=== PATIENT | female | born 1960 | race Caucasian/White ===

== ENCOUNTER 2023-01-19 11:06 | Outpatient (OUT) | payer BC, SELFPAY ==
--- NOTE | 2023-01-19 | XR_ITS ---
The [address] [address] Patient Name: MILLICENT FONTENOT MRN: [id number] date: 1960 Sex: F Assigned Patient Location: [facility] Current Patient Location: [facility] Accession/Order Number: [id number] Exam Date: 01/19/2023 11:11 Report Date: 01/19/2023 13:02 At the request of: ANEUDY CHARLTON Procedure: XR foot MARCE min 3V Exam: Radiographs: XR foot MARCE min 3V Reason for exam: Bilateral foot pain Comparison: None XR/XR foot MARCE min 3V IMPRESSION: Mild left foot degenerative changes, most evident at the first MTP joint. Pes planus. Remainder of the left foot is unremarkable. Mild right foot degenerative changes, most evident at the first MTP joint. Pes planus. Right foot is otherwise unremarkable. Electronically authenticated by: CONRADO SMITH Date: 01/19/2023 13:02
== END 2023-01-19 11:07 | disposition home or self-care (01) ==
PROVIDERS: PCP Nurse Practitioner; Visit Provider Physician Assistant
DX: M79.671 Pain in right foot (principal); M79.672 Pain in left foot
CPT/HCPCS: 73630

== ENCOUNTER 2023-04-08 09:25 | Outpatient (OUT) | payer BC, SELFPAY ==
--- OUTSIDE RECORDS SUMMARY | 2023-04-08 09:29 | XMS_ITS | CCD ---
Author Name Unknown Address [address] [place] [address] Organization [facility] Care Team Providers Care Computer Lab Assistant Name Role Phone Rosie Givens Attending Unavailable Rosie Givens Attending Unavailable VIV CONNORS Attending Unavailable NON STAFF Primary Care Provider UnavailMD Rosie Vargas Attending Provider MD Rosie Givens Other Provider Kenzie Lin Unavailable ELIF, AHMAD Admitting Unavailable ELIF, AHMAD Attending Unavailable AICHHOLZ, TREE PULLER DEB Primary Care Unavailable ELIF, AHMAD Consulting Unavailable ELIF, AHMAD Admitting Unavailable ELIF, AHMAD Attending Unavailable AICHHOLZ, TREE PULLER DEB Primary Care Unavailable ELIF, AHMAD Consulting Unavailable AICHHOLZ, TREE PULLER DEB Admitting Unavailable AICHHOLZ, TREE PULLER DEB Attending Unavailable AICHHOLZ, TREE PULLER DEB Primary Care Unavailable AICHHOLZ, TREE PULLER DEB Consulting Unavailable AICHHOLZ, TREE PULLER DEB Admitting Unavailable AICHHOLZ, TREE PULLER DEB Attending Unavailable AICHHOLZ, TREE PULLER DEB Primary Care Unavailable DR RAYSHAWN CASTANON V Consulting Unavailable AICHHOLZ, TREE PULLER DEB Consulting Unavailable Aichgustavo, Deb J Primary Care Provider [phone] JOSEP Crain Attending Provider [phone] DO Jurgen Garcia Attending Provider MD Kiesha Asencio Other Provider Deb Chiu Primary Care Provider [phone] Zoila Crain Admitting Unavailable Zoila Crain Attending Unavailable Deb Chiu Primary Care Unavailable Jurgen Garcia Admitting Unavailable Jurgen Garcia Attending Unavailable Deb Chiu Primary Care Unavailable Kiesha Asencio Consulting Unavailable Allergies Allergy Classification Reported Allergen(s) Allergy Type Date of Onset Reaction(s) Facility (7 sources) pegfilgrastim; Translations: [pegfilgrastim] Drug Allergy 10-14-2020 [facility] (1 source) pegfilgrastim Drug Allergy 04-22-2016 [facility] Repository Medications Current Medications Medication Drug Class(es) Dates Sig (Normalized) Sig (Original) Calcitrate (1 source) Calcitrate Activ e levothyroxine sodium 0.125 mg oral tablet (16 sources) l-Thyroxine Start: 03-07-2019 take 100 ug by mouth once daily in the morning Levothyroxine Active 100 MCG PO Every morning March 07, 2019 1:00am Start: 07-13-2017 End: 03-07-2019 take 125 ug by mouth once daily Levothyroxine Discontinued 125 MCG PO Daily July 13, 2017 12:00am March 07, 2019 9:25am Start: 01-17-2017 End: 07-13-2017 take 112 ug by mouth once daily Levothyroxine Discontinued 112 MCG PO Daily January 17, 2017 12:00am July 13, 2017 9:09am Levothyroxine So dium Active Completed/Discontinued Medications Medication Drug Class(es) Dates Sig (Normalized) Sig (Original) acetaminophen 325 mg / HYDROcodone bitartrate 5 mg oral tablet (10 sources) Opioid Agonist Start: 03-28-2019 End: 09-05-2019 take 1 tablet by mouth every four to six hours Hydrocodone-Acetami nophen ([place]) 5-325 mg tablet Discontinued 1 TAB PO EVERY 4-6 HOURS 40 March 28, 2019 September 05, 2019 8:37am Start: 02-09-2017 End: 07-13-2017 take 2 tablets by mouth every four to six hours Hydrocodone-Acetaminophen ([place]) 5-325 mg tablet Discontinued 2 TAB PO EVERY 4-6 HOURS 40 February 09, 2017 1:00am July 13, 2017 9:09am anastrozole 1 mg oral tablet (20 sources) Aromatase Inhibitor Start: 01-17-2017 End: 10-14-2020 take 1 mg by mouth once daily in the evening Anastrozole Discontinued 1 MG PO Every evening 90 90 June 23, 2020 8:36am October 14, 2020 3:48pm calcium carbonate 1500 mg / cholecalciferol 800 unt chewable tablet (5 sources) Vitamin D Start: 01-17-2017 End: 07-13-2017 Calcium Carbonate-Vitamin D3 (Caltrate 600 + D) 600 mg (1,500 mg)-800 unit Tablet,Chewable Discontinued 1 TAB PO Twice daily January 17, 2017 12:00am July 13, 2017 9:09am Multivitamin preparation (5 sources) Start: 01-17-2017 End: 07-13-2017 take 1 tablet by mouth once daily Multivitamin Discontinued 1 TAB PO Daily January 17, 2017 12:29pm July 13, 2017 9:09am Start: 01-17-2017 End: 07-13-2017 take 1 tablet by mouth once daily Multivitamin Discontinued 1 TAB PO Daily January 17, 2017 12:00am July 13, 2017 9:09am Vitamin B Complex (5 sources) Start: 01-17-2017 End: 01-26-2017 take 1 capsule by mouth once daily Vitamin B Complex Discontinued 1 CAP PO Daily January 17, 2017 12:29pm January 26, 2017 1:43pm Start: 01-17-2017 End: 01-26-2017 take 1 capsule by mouth once daily Vitamin B Complex Discontinued 1 CAP PO Daily January 17, 2017 12:00am January 26, 2017 1:43pm vitamin b12 1 mg oral tablet (5 sources) Vitamin B12 Start: 01-26-2017 End: 07-12-2018 take 1 tablet by mouth once daily Cyanocobalamin (Vitamin B-12) (Vitamin B-12) 1,000 mcg Tablet Discontinued 1000 MCG PO Daily January 26, 2017 12:00am July 12, 2018 9:17am vitamin b6 50 mg oral capsule (5 sources) Start: 01-26-2017 End: 07-12-2018 take 1 capsule by mouth once daily Pyridoxine (Vitamin B6) (Vitamin B-6) 50 mg Capsule Discontinued 1 CAP PO Daily January 26, 2017 12:00am July 12, 2018 9:17am Problems Active Problems Problem Classification Problem Date Documented Da te Episodic/Chronic Cancer of breast (7 sources) Malignant neoplasm of upper-outer quadrant of female breast; Translations: [Malignant neoplasm of upper-outer quadrant of left female breast] 01-15-2019 Chronic Cancer of breast (2 sources) Personal history of primary malignant neoplasm of breast; Translations: [Personal history of malignant neoplasm of breast] Onset: 10-07-2022 Episodic Complications of surgical procedures or medical care (5 sources) Seroma of breast as complication of procedure; Translations: [Infected postoperative breast seroma] 01-15-2019 Episodic Menopausal disorders (5 sources) Menopausal flushing; Translations: [Menopausal and female climacteric states] 01-15-2019 Chronic Mood disorders (5 sources) Depressive disorder; Translations: [Depression] 01-15-2019 Chronic Nonmalignant breast conditions (2 sources) Deformity of reconstructed breast; Translations: [Deformity of reconstructed breast] Episodic Nutritional deficiencies (5 sources) Vitamin D deficiency, unspecified; Translations: [VITAMIN D DEFICIENCY UNSPECIFIED] Onset: 04-28-2021 Chronic Other aftercare (5 sources) Drug therapy finding; Translations: [Encounter for therapeutic drug level monitoring] 09-05-2019 Episodic Other aftercare (1 source) Encounter for therapeutic drug level monitoring; Translations: [Encounter for therapeutic drug monitoring] Episodic Other bone disease and musculoskeletal deformities (5 sources) Osteopenia; Translations: [Other specified disorders of bone density and structure, unspecified site] 01-15-2019 Episodic Other bone disease and musculoskeletal deformities (1 source) Other specified disorders of bone density and structure, unspecified site; Translations: [Disorder of bone and cartilage, unspecified] Episodic Other lower respiratory disease (4 sources) Pleurodynia; Translations: [PLEURODYNIA] Onset: 03-29-2022 Episodic Other nutritional; endocrine; and metabolic disorders (1 source) Hypercalcemia; Translations: [HYPERCALCEMIA] Onset: 04-13-2022 Chronic Other upper respiratory disease (1 source) Nasal congestion; Translations: [Nasal congestion] Episodic Other upper respiratory infections (1 source) Acute upper respiratory infection, unspecified; Translations: [ACUTE UP RESPIRATORY INFECTION UNS] Onset: 04-01-2022 Episodic Residual codes; unclassified (1 source) Acquired absence of both cervix and uterus; Translations: [Acquired absence of both cervix and uterus] Episodic Residual codes; unclassified (1 source) History of left mastectomy; Translations: [Acquired absence of left breast and nipple] Episodic Thyroid disorders (12 sources) Hypothyroidism; Translations: [Hypothyroidism, unspecified] Onset: 04-23-2021 07-12-2018 Chronic Unclassified (1 source) COUGH, UNSPECIFIED; Translations: [COUGH, UNSPECIFIED] Onset: 04-01-2022 Unclassified (3 sources) CONTACT W/AND (SUSP) EXPOS COVID-19; Translations: [CONTACT W/AND (SUSP) EXPOS COVID-19] Onset: 04-28-2021 Unclassified (1 source) Encounter for surgical aftercare following surgery on the skin and subcutaneous tissue; Translations: [Encounter for surgical aftercare following surgery on the skin and subcutaneous tissue] Onset: 07-12-2022 Past or Other Problems Problem Classification Problem Date Documented Da te Episodic/Chronic Other upper respiratory disease (1 source) Nasal congestion Onset: 10-29-2021 Resolved: 10-29-2021 Episodic Unclassified (1 source) CONTACT W/AND (SUSP) EXPOS COVID-19; Translations: [CONTACT W/AND (SUSP) EXPOS COVID-19] Onset: 04-27-2021 Viral infection (1 source) COVID-19 Onset: 10-29-2021 Resolved: 10-29-2021 Results Test Name Value Interpretation Reference Range Facility Free T4 (Free Thyroxine)on 0 10-07-2022 Free T4 [Mass/Vol] 1.13 ng/dL High 0.61-1.12 [facility] Comment on above: Performed By: #### T 4F, TSH3, T3F #### [address] MM diagnostic mammo RT w/CAD on 10-07-2022 MM diagnostic mammo RT w/CAD [facility] [address] [place] [address] [place] [address] Mammography Report Signed Patient: Gabriella Rodriguez MR#: [id number] : 1960 Acct:[id number] Age/Sex: 62 / F ADM Date: 10/07/22 Loc: [place] Room: Type: [facility] Attending Dr: Jurgen Garcia DO Copies to: DO Deb Acevedo METAL PATTERN MAKER-C Ordering Provider: Jurgen Garcia DO Date of Service: 10/07/22 MM/MM diagnostic mammo RT w/CAD: Z85.3 CLINICAL DATA: History of left-sided breast cancer status post mastectomy in 2015. RightDIAGNOSTIC MAMMOGRAM - WITH TOMOSYNTHESIS AND CAD COMPARISON:Mammogra ms dating back to 2019 Tomosynthesis imaging was obtained using low-dose digital technique. This examination was reviewed with the aid of CAD. FINDINGS: The right breast is composed of scattered fibroglandular densities. No new areas of architectural distortion, worrisome masses or suspicious microcalcifications . MM/MM diagnostic mammo RT w/CAD IMPRESSION: NO MAMMOGRAPHIC EVIDENCE OF MALIGNANCY. ROUTINE FOLLOW-UP IS RECOMMENDED IN ONE YEAR. RESULT CODE: 1 Negative DENSITY CODE: 2 (approximately 25-50% glandular) FOLLOW UP: 1YR The false-negative rate of mammography is approximately 10-percent. Management of a palpable abnormality must be based on clinical grounds. Patient was entered into a reminder system with a target due date for the next mammogram. Impression dictated by: Roby Rojas Jr., Mg10/07/2022 9:05 AM Dictation Location: [facility] Transcribed By: [facility] 10/07/22904 Dictated By: Roby Rojas Jr, DO 10/07/22 09 Signed By: 10/07/22904 Normal [facility] Thyroid Stimulating Hormoneo n 10-07-2022 TSH Qn 0.32 m[IU]/L Low 0.45-5.33 [facility] Comment on above: Result Comment: PERF ORMED BY: [place] [address] PATHOLOGIST FORMULA ROOM WORKER MALIA MARTÍNEZ M.D. Performed By: #### T 4F, TSH3, T3F #### [address] Thyrotropin [Units/volume] i n Serum or PlasmaOrdered By: Kiesha Asencio on 10-07-2022 TSH Qn 0.32 m[IU]/L 0.45-5.33 [facility] Thyroxine (T4) free [Mass/vo lume] in Serum or PlasmaOrdered By: Kiesha Asencio on 10-07-2022 Free T4 [Mass/Vol] 1.13 ng/dL 0.61-1.12 [facility] Triiodothyronine (T3) Freeon 10-07-2022 Triiodothyronine (T3) Free 3.42 pg/mL Normal 2.50-3.90 [facility] Comment on above: Result Comment: PERF ORMED BY: [facility] [address] [place] [address] PATHOLOGIST FORMULA ROOM WORKER MAILA MARTÍNEZ M.D. Performed By: #### T 4F, TSH3, T3F #### [facility] [address] Triiodothyronine (T3) Free [ Mass/volume] in Serum or PlasmaOrdered By: Kiesha Asencio on 10-07-2022 Free T3 [Mass/Vol] 3.42 pg/mL 2.50-3.90 [facility] Bacteria identified Aer cx N om (Unsp spec)Ordered By: Zoila Crain on 07-12-2022 Superficial Wound Culture Pseudomonas aeruginosa [facility] Superficial Wound Culture Serratia marcescens [facility] Superficial Wound Cultureon 07-12-2022 Superficial Wound Culture LEFT INFERIOR CENTRAL MALAR CHEEK AND FACE ORGANISM: Pseudomonas aeruginosa (O:PSEAER) Quantity of Growth Heavy Growth ORGANISM: Serratia marcescens (O:SERMAR) Quantity of Growth Light Growth Aerobic EMELI Charge (NMIC56) ------ SUSCEPTIBILITY ----- ORGANISM: O:PSEAER ANTIBIOTIC INTERPRETATION EMELI Amikacin S <16 Aztreonam IB <4 Cefepime S <2 Ceftazidime IB 4 Ceftazidime/Avibact am S <4 Ceftolozane/Tazobac paul S <2 Ciprofloxacin S <0.25 Gentamicin S 4 Levofloxacin S <0.5 Meropenem S <1 Piperacillin/Tazoba ctam IB <8 Tobramycin S <2 Aerobic EMELI Charge (NMIC56) ------ SUSCEPTIBILITY ----- ORGANISM: O:SLIM ANTIBIOTIC INTERPRETATION EMELI Amikacin S <16 Aztreonam IB <4 Cefepime S <2 Ceftazidime IB <1 Ceftazidime/Avibact am S <4 Ceftolozane/Tazobac paul S <2 Ceftriaxone IB <1 Ciprofloxacin S <0.25 Ertapenem S <0.5 Gentamicin S <2 Levofloxacin S <0.5 Meropenem S <1 Meropenem/Vaborbact am S <2 Piperacillin/Tazoba ctam IB <8 Tetracycline R >8 Tigecycline S <2 Tobramycin S 4 Trimethoprim/Sulfam ethoxazole S <0.5 S = SUSCEPTIBLE I = INTERMEDIATE R = RESISTANT BLANK = DATA NOT AVAILABLE, OR DRUG NOT ADVISABLE OR TESTED R* = RESISTANCE DUE TO EXTENDED SPECTRUM BETA-LACTAMASES ESBL = EXTENDED SPECTRUM BETA-LACTAMASE TFG = THYMIDINE-DEPENDENT STRAIN EMELINA = BETA-LACTAMASE POSITIVE IB = INDUCIBLE BETA-LACTAMASE. APPEARS IN PLACE OF 'S' WITH SPECIES KNOWN TO POSSESS INDUCIBLE BETA-LACTAMASES. POTENTIALLY THEY MAY BECOME RESISTANT TO ALL B-LACTAM DRUGS. PERFORMED BY: [place] [address] PATHOLOGIST FORMULA ROOM WORKER MALIA MARTÍNEZ M.D. [facility] Comment on above: Performed By: #### C USUP #### [facility] [address] [place] [address] FREE T3on 04-09-2022 FREE T3 1.90 pg/mlL Critically low 2.18-3.98 [facility] Comment on above: Performed By: #### F T3, BMP, TSH #### [facility] [address] [place] [address] Dr. Miles Velez FREE T4on 04-09-2022 Free T4 [Mass/Vol] 0.87 ng/dL Normal 0.76-1.46 [facility] Comment on above: Performed By: #### F T4, VITAD #### [facility] [address] [place] [address] Dr. Miles Velez PROF CHEM 8 (BAS METB)on Anion gap [Moles/Vol] 13.8 mmol/L Normal [facility] Comment on above: Performed By: #### F T3, BMP, TSH #### [facility] [address] [address] [address] Miles Velez Calcium [Mass/Vol] 9.5 mg/dL Normal 8.5-10.1 [facility] Comment on above: Performed By: #### F T3, BMP, TSH #### [facility] [address] [address] [address] Miles Velez Chloride [Moles/Vol] 101 mmol/L Normal 98-107 [facility] Comment on above: Performed By: #### F T3, BMP, TSH #### [facility] [address] [place] [address] Dr. Miles Velez CO2 [Moles/Vol] 31.8 mmol/L Normal 21.0-32.0 [facility] Comment on above: Performed By: #### F T3, BMP, TSH #### [facility] [address] [address] [address] Miles Velez Creatinine [Mass/Vol] 0.85 mg/dL Normal 0.55-1.02 [facility] Comment on above: Performed By: #### F T3, BMP, TSH #### [facility] [address] [address] [address] Milse Velez EGFR-AF PUERTO RICAN >60 Normal >=60 [facility] Comment on above: Performed By: #### F T3, BMP, TSH #### [facility] [address] [address] [address] Miles Velez EGFR-NON AF PUERTO RICAN >60 Normal >=60 [facility] Comment on above: Performed By: #### F T3, BMP, TSH #### [facility] [address] [place] [address] Dr. Miles Velez Glucose [Mass/Vol] 97 mg/dL Normal 74-106 [facility] Comment on above: Performed By: #### F T3, BMP, TSH #### [facility] [address] [address] [address] Miles Velez Potassium [Moles/Vol] 4.6 mmol/L Normal 3.5-5.1 [facility] Comment on above: Performed By: #### F T3, BMP, TSH #### [facility] [address] [address] [address] Miles Velez Sodium [Moles/Vol] 142 mmol/L Normal 136-145 [facility] Comment on above: Performed By: #### F T3, BMP, TSH #### [facility] [address] [place] [address] Dr. Miles Velez Urea nitrogen [Mass/Vol] 22.0 mg/dL Critically high 7.0-18.0 [facility] Comment on above: Performed By: #### F T3, BMP, TSH #### [facility] [address] [place] [address] Dr. Miles Velez Urea nitrogen/Creatinine [Mass ratio] 25.9 mg/mg Normal [facility] Comment on above: Performed By: #### F T3, BMP, TSH #### [facility] [address] [address] [address] Miles Velez TSHon 04-09-2022 TSH 18.326 uIU/mL Critically high 0.358-3.740 [facility] Comment on above: Performed By: #### F T3, BMP, TSH #### [facility] [address] [place] [address] Dr. Miles Velez VITAMIN D 25 OHon 04-09-2022 VIT D 25-OH 49.5 ng/mL Normal [facility] Comment on above: Performed By: #### F T3, BMP, TSH #### [facility] [address] [place] [address] Dr. Miles Velez VIT D RANGES SEE BELOW [facility] Comment on above: Result Comment: <20 ng/mL Vit D deficient 20 - <30 ng/mL Vit D insufficient 30 - 100 ng/mL Vit D sufficient >100 ng/mL Potential Toxicity Performed By: #### F T3, BMP, TSH #### [facility] [address] [place], [place] [address] Dr. Miles Velez XR RIBS RT PA Donna 2 XR RIBS RT PA CH EXAMINATION: XR RIBS RT PA CH HISTORY: Pleuritic pain COMPARISON: No relevant comparison available. FINDINGS: RIBS: No acute rib fracture LUNGS: Linear opacities in the right lung base, atelectasis or scar is favored OTHER: Negative. IMPRESSION: No acute rib fracture Electronically authenticated by: RAYSHAWN CASTANON Date: 2022-03-29 13:59 Normal [facility] SARS-CoV-2 (COVID-19) RNA NA A+probe Ql (Resp)on 10-29-2021 SARS-CoV-2 (COVID-19) RNA EARLE+probe Ql (Unsp spec) Positive [place] Other Covid-19 PCR ([facility])on 04-04 SARS-CoV-2 (COVID-19) RNA EARLE+probe Ql (Unsp spec) Not detected Normal NOT DETECTED [facility] Comment on above: Result Comment: This test is not yet approved or cleared by the [place] FDA. When there are no FDA-approved or cleared tests available, and other criteria are met, FDA can make tests available under an emergency access mechanism called an Emergency Use Authorization (EUA). The EUA for this test is supported by the [employer] Engineer of Health and Human Service's (HHS's) declaration that circumstances exist to justify the emergency use of in vitro diagnostics for the detection and/or diagnosis of the virus that causes COVID-19. This EUA will remain in effect (meaning this test can be used) for the duration of the COVID-19 declaration justifying emergency of IVDs, unless it is terminated or revoked by FDA (after which the test may no longer be used). When diagnostic testing is negative, the possibility of a false negative should be considered in the context of a patient's recent exposures and the presence of clinical signs and symptoms consistent with SARS-CoV-2. Performed By: #### F T3, BMP, TSH #### [facility] [address] [place], [place] [address] Dr. Milse Velez FREE T3on 04-23-2021 FREE T3 2.47 pg/mlL Critically low 2.77-5.27 [facility] Comment on above: Performed By: #### F T3, BMP, TSH #### [facility] [address] [address] [address] Miles Velez FREE T4on 04-23-2021 Free T4 [Mass/Vol] 1.13 ng/dL Normal 0.78-2.19 [facility] Comment on above: Performed By: #### F T4, VITAD #### [facility] [address] [address] [address] Miles Velez PROF CHEM 8 (BAS METB)on Anion gap [Moles/Vol] 12.3 mmol/L Normal [facility] Comment on above: Performed By: #### F T3, BMP, TSH #### [facility] [address] [address] [address] Miles Velez Calcium [Mass/Vol] 9.0 mg/dL Normal 8.4-10.2 [facility] Comment on above: Performed By: #### F T3, BMP, TSH #### [facility] [address] [address] [address] Miles Velez Chloride [Moles/Vol] 101 mmol/L Normal 98-107 [facility] Comment on above: Performed By: #### F T3, BMP, TSH #### [facility] [address] [address] [address] Miles Velez CO2 [Moles/Vol] 27.5 mmol/L Normal 22.0-30.0 [facility] Comment on above: Performed By: #### F T3, BMP, TSH #### [facility] [address] [address] [address] Miles Velez Creatinine [Mass/Vol] 0.64 mg/dL Normal 0.52-1.04 [facility] Comment on above: Performed By: #### F T3, BMP, TSH #### [facility] [address] [address] [address] Miles Velez EGFR-AF PUERTO RICAN >60 Normal >=60 [facility] Comment on above: Performed By: #### F T3, BMP, TSH #### [facility] [address] [address] [address] Miles Velez EGFR-NON AF PUERTO RICAN >60 Normal >=60 [facility] Comment on above: Performed By: #### F T3, BMP, TSH #### [facility] [address] [address] [address] Miles Velez Glucose [Mass/Vol] 83 mg/dL Normal 74-106 [facility] Comment on above: Performed By: #### F T3, BMP, TSH #### [facility] [address] [address] [address] Miles Velez Potassium [Moles/Vol] 3.8 mmol/L Normal 3.4-5.0 [facility] Comment on above: Performed By: #### F T3, BMP, TSH #### [facility] [address] [address] [address] Miles Velez Sodium [Moles/Vol] 137 mmol/L Normal 137-145 [facility] Comment on above: Performed By: #### F T3, BMP, TSH #### [facility] [address] [address] [address] Miles Velez Urea nitrogen [Mass/Vol] 26.0 mg/dL Critically high 7.0-17.0 [facility] Comment on above: Performed By: #### F T3, BMP, TSH #### [facility] [address] [address] [address] Miles Velez Urea nitrogen/Creatinine [Mass ratio] 40.6 mg/mg Normal [facility] Comment on above: Performed By: #### F T3, BMP, TSH #### [facility] [address] [address] [address] Miles Velez TSHon 04-23-2021 TSH 1.621 uIU/mL Normal 0.470-4.680 [facility] Comment on above: Performed By: #### F T3, BMP, TSH #### [facility] [address] [address] [address] Miles Velez TSH RANGE SEE BELOW Normal [facility] Comment on above: Result Comment: <0.3 4 UIU/ml HYPERTHYROID 0.34-5.60 UIU/ml EUTHYROID >5.60 UIU/ml HYPOTHYROID Performed By: #### F T3, BMP, TSH #### [facility] [address] [place], [place] [address] Dr. Miles Velez VITAMIN D 25 OHon 04-23-2021 VIT D 25-OH 56.9 ng/mL Normal [facility] Comment on above: Performed By: #### F T4, VITAD #### [facility] [address] [place], [place] [address] Dr. Miles Velez VIT D RANGES SEE BELOW Normal [facility] Comment on above: Result Comment: <20 ng/mL Vit D deficient 20 - <30 ng/mL Vit D insufficient 30 - 100 ng/mL Vit D sufficient >100 ng/mL Potential Toxicity Performed By: #### F T4, VITAD #### [facility] [address] [place] [address] [address] Miles Velez Consent for COVID Vaccineon 07-26-2020 SARS-CoV-2 (COVID-19) RNA EARLE+probe Ql (Unsp spec) [id number]#1.00CD:127 Normal [facility] Consent for COVID Vaccineon 06-26-2020 SARS-CoV-2 (COVID-19) RNA EARLE+probe Ql (Unsp spec) [id number]#1.00CD:127 Normal [facility] Consent for Treatmenton 06-02 Consent for Treatment [id number]#1.00CD:127 [facility] Coding Summary.on 06-24-2020 Coding Summary. CODING DATE: 06/24/2020 FINAL [facility] STATUS: PAYOR: Medicaid EA DESCRIPTION 0999 UNASSIGNED ADMIT DX: REASON FOR VISIT DX: Z23 Encounter for immunization FINAL DX: PRINCIPAL: Z23 Encounter for immunization SECONDARY: PYMT PROC EA STAT DESCRIPTION DOCTOR NAME DATE NOTE: The code number assigned matches the documented diagnosis and / or procedure in the patient's chart. However, the narrative phrase printed from the coding software may appear abbreviated, or result in slightly different terminology. Coded By: Kate Yeboah Date Saved: 06/24/2020 02:39 pm [facility] Vital Signs Date Time Vital Sign Value Performing Clinician Facility 10-29-2021 10:50-0400 Body height 157.48 cm Kenzie Lin Other [facility] Other 10-29-2021 10:50-0400 Body mass index (BMI) [Ratio] 21.58 kg/m2 Kenzie Lin Other [facility] Other 10-29-2021 10:50-0400 Body temperature 96.4 [degF] Kenzie Lin Other [facility] Other 10-29-2021 10:50-0400 Body weight 53.52 kg Kenzie Lin Other [facility] Other 10-29-2021 10:50-0400 Respiratory rate 18 /min Kenzie Lin Other [facility] Other 10-29-2021 10:50-0400 SaO2% (BldA) [Mass fraction] 97 % Kenzie Lin Other [facility] Other 10-15-2021 15:43-0400 Body temperature 97.8 [degF] [facility] 10-15-2021 15:43-0400 Body weight 54.43 kg [facility] 10-15-2021 15:43-0400 Diastolic blood pressure 72 mm[Hg] [facility] 10-15-2021 15:43-0400 Heart rate 68 /min [facility] 10-15-2021 15:43-0400 Respiratory rate 16 /min [facility] 10-15-2021 15:43-0400 SaO2% (BldA) [Mass fraction] 97 % [facility] 10-15-2021 15:43-0400 Systolic blood pressure 107 mm[Hg] [facility] 10-14-2020 15:37-0400 Body height 157.48 cm [facility] Encounters Encounter Date Encounter Type Care Provider Facility Start: 10-07-2022 End: 10-07-2022 ambulatory Jurgen Garcia Facility:[facility] Start: 10-07-2022 End: 10-07-2022 ambulatory Deb Chiu Work Phone: [facility] Work Phone: Start: 10-07-2022 End: 10-07-2022 Patient encounter procedure Deb Chiu Work Phone: [facility] Work Phone: Start: 07-12-2022 End: 07-12-2022 ambulatory Zoila Crain Facility:[facility] Start: 07-12-2022 End: 07-12-2022 ambulatory Deb Chiu Work Phone: [facility] Work Phone: Start: 07-12-2022 End: 07-12-2022 Departed Referred Deb Chiu Work Phone: [facility] [place] Work Phone: Start: 04-09-2022 End: 04-10-2022 ambulatory KIESHA ASENCIO Facility:[facility] Start: 03-29-2022 End: 03-30-2022 ambulatory TREE PULLER DEB CHIU Facility:[facility] Start: 10-29-2021 End: 10-29-2021 ambulatory Kenzie Lin Other [facility] Other Start: 10-29-2021 Office outpatient vi sit 25 minutes Kenzie Lin [facility] Start: 10-15-2021 End: 10-15-2021 Registered Rec[facility]ring [facility] Start: 04-27-2021 End: 04-27-2021 ambulatory TREE PULLER DEB CHIU Facility:[facility] Start: 04-23-2021 End: 04-24-2021 ambulatory KIESHA ASENCIO Facility:[facility] Start: 07-12-2018 Patient encounter procedure Rosie Givens Facility:[id number] Start: 01-11-2018 Patient encounter procedure Rosie Givens Facility:[id number] Start: 04-17-2017 Hypersensitivity finding Kenzie Lin Other [facility] Other Procedures Date Procedure Procedure Detail Performing Clinician Start: 10-07-2022 Mammography of right breast Deb Chiu Work Phone: Start: 07-12-2022 Aerobic microbial culture Deb Chiu Work Phone: Start: 10-06-2021 Dual energy X-ray absorptiometry Start: 10-06-2021 Screening mammography of right breast Start: 09-03-2020 Screening mammography of right breast Start: 09-03-2019 Dual energy X-ray absorptiometry Start: 09-03-2019 Screening mammography Start: 07-09-2018 Mammography Start: 07-06-2017 Dual energy X-ray absorptiometry Start: 07-06-2017 Mammography H/O: hysterectomy Status post hysterectomy with oophorectomy H/O: surgery Status post hysterectomy with oophorectomy Deb Chiu Work Phone: Plan of Treatment Date Care Activity Detail Author Start: 07-12-2022 Superficial Wound Culture Superficial Wound Culture [facility] Payers Date Payer Category Payer Medicaid [id number] 2022 Self-pay [id number] 1960 Unknown [id number] 2.16. [id number] 1960 Unknown [id number] 2.16. [id number] 1960 Unknown [id number] 2.16. [id number] 1960 Unknown [id number] 2.16.84 [id number] 1960 Unknown [id number] 2.16.84 [id number] 1960 Unknown [id number] 2.16.84 [id number] 1960 Unknown [id number] 2.16.84 [id number] 1959 Unknown [id number] [address] [facility] [id number] Unknown [id number] 2.16.8 [id number] Unknown [id number] 2.16.8 [id number] Social History Date Type Detail Facility Tobacco smoking stat [facility] Unknown if ever smoked [facility] Work Phone: Start: 1960 Sex Assigned At Female F [facility] Start: 10-15-2021 Tobacco smoking stat [facility] Ex-smoker (finding) [facility] End: 05-27-2015 History of tobacco use [facility] Work Phone: Medical Equipment Procedure Code Equipment Code Equipment Origin al Text Equipment Identifier Dates Reconstruction, breast and nipple, TRAM flap, liposuction Silicone gel-filled breast implant, smooth-surface [id number] FDA Start: 03-28-2019 Reconstruction, breast and nipple, TRAM flap, liposuction [id number] [id number] 0.8-1.7MM FDA Start: 02-09-2017 Reconstruction, breast and nipple, TRAM flap, liposuction FLEXHD [id number] 0.8-1.7MM FDA Start: 02-09-2017 Reconstruction, breast and nipple, TRAM flap, liposuction FLEXHD [id number] 0.8-1.7MM FDA Start: 02-09-2017 Reconstruction, breast and nipple, TRAM flap, liposuction FLEXHD [id number] 0.8-1.7MM FDA Start: 02-09-2017 Reconstruction, breast and nipple, TRAM flap, liposuction FLEXHD [id number] 0.8-1.7MM FDA Start: 02-09-2017 Clinical Notes 01-19-2017 to 10-29-2021 Note Date & Type Note Facility 10-29-2021 Evaluation note Encounter Date Diagnosis Assessment Notes Oct, Nasal congestion (ICD-10 - R09.81) Oct, COVID-19 (ICD-10 - U07.1) COVID PCR test performed in office today. Advised patient that test was positive. Instructed patient to isolate per CDC guidelines for 5 days from symptom onset, mask 5 days following. May return to work/activities outside home after isolation period as long as symptoms are improving and has been afebrile for 24 hours without use of antipyretic. Advised patient that treatment of COVID is with viral supportive care, OTC cold medications as directed, Tylenol/Motrin as needed for body aches/fever. Increase fluids and rest. Encouraged use of cool mist humidifier. Follow-up with PCP to advise of positive result and further management. Immediate eval for SOB, difficulty, chest pain, fevers that do not break with antipyretic or any other concerning symptoms as reviewed on patient education handout. Patient verbalizes understanding and is agreeable to treatment plan. Patient left in stable condition [facility] Other 07-17-2022 Progress note Author Rsoie Givens [facility] October 17, 2021 1:53pm Note Date/Time October 15, 2021 3:53 pm [facility] at [address] [address] Hem/Onc Follow Up Note - OP Signed Patient: Gabriella Rodriguez MR#: [id number] : 1960 Acct:[id number] Age/Sex: 61 / F Type: REG RCR Copies to: NON STAFF MD Jurgen Dial DO Gregory A Surfield, MD~ Subjective Date/Time of Service: Date of Service: 10/15/2021 Time of Service: 15:53 Chief Complaint: Patient is here today for one year follow up visit for breast cancer of the left breast. She had her mamogram 10/06/2021 HPI: Gabriella is here for 1-year follow-up of T1c N0 M0 left breast cancer, now 7 1/2 years from diagnosis. She denies any change in self breast exam and underwent left breast implant revision surgery with Dr. De Los Santos 03/2019. She denies discomfort in the left breast/axillary region, arm lymphedema, or palpable axillary lymph nodes. She denies any nausea, vomiting, diarrhea, constipation, hot flashes, and arthralgia/myalgias. --Tolerated anastrozole well--completed 5 year course one year ago. Her daughter last year and affect stable. --2019 DEXA showed persistent osteopenia (see #12 below) and low TSH with elevated FT4--addressed at f/u with Dr. Asencio on 09/09/2019. Now on additional Vit D, once daily Ca. 10/2021 DEXA scan 10/06/2021 with persistent osteopenia--improved L- spine, stable bilateral hips. Should improve off AI therapy. Followup with primary care. --Now 7 years from diagnosis, may continues to follow annually with General surgery and primary care. She may followup with medical oncology on an as needed basis. DIAGNOSIS: 1. 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 The patient underwent left lumpectomy and sentinel lymph node dissection on 05/13/2014; all six sentinel lymph nodes were negative for metastatic cancer. 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 Posterior margin was focally positive with invasive cancer; ER/PRpositive and HER-2 also equivocal on the lumpectomy specimen. 2. Specimen was sent for Oncotype DX testing with a recurrence score of 29 whichcorrelates to a 19%, 10 year risk of distant recurrence in the intermediate riskgroup on the high end of the scale. The HER-2 score (on Oncotype) was 9.0, whichwas negative; therefore, the patient did not receive HER-2 directed therapy. 3. The patient was sent for liver ultrasound due to a questionable density on staging CT. There was no space occupying lesion seen although liver was heterogeneous in texture and consideration of follow-up CT or MRI of the liver was recommended by radiology for interval follow-up. The patient also had a baseline MUGA scan for cardiac function and had normal left ventricular function. 4. Note, the patient was seen the 3rd week of first cycle of chemotherapy where she was noted to have a rash overlying the right hand at the 4th and 5th metacarpals. This was thought to be a mild chemotherapy extravasation. She did not experience any scarring of the area. 5. Her one year followup bilateral mammogram on April 15, 2015 did show scattered fibroglandular densities with trabeculation and skin thickening on theleft related to radiation therapy. There was an area of subtle calcifications just inferior and slightly medial to the lumpectomy site. This could not be excluded as residual DCIS radiating away from the area of prior mass on initial studies February and March 2014. There were no masses or abnormalities of theright breast. Dr. Garcia saw patient and recommended biopsy. This biopsy 04/28/2015 performed at 11:00, 3 cm from the nipple of the left breast showed fragments of breast tissue with a minute 0.3 mm focus of malignant epithelial cells, nuclear grade 2-3. At least ductal carcinoma in situ was likely area there were microcalcifications associated with fibrous stroma and focal fat necrosis. 6. This case was discussed in [facility] cancer conference and the decision was made to perform left mastectomy with immediate reconstruction by Dr. Marcos Garcia and Dr. Trevor De Los Santos on 06/16/2015. She required 2 courses of postoperative antibiotics due to infection. She had removal of her tissue java user interface developer on 07/20/2015 due to recurrent infection. She returned to work after short-term disability on July 14, then laid off due to staffing issues. She initiated anastrozole in June 2015 which she has tolerated well. 7. The patient underwent a second breast reconstruction of the left breast withplacement of tissue java user interface developer on 11/03/2015. 8. Noted on exam 11/05/2015 to have right supraclavicular fullness of unclear etiology. Sent for supraclavicular ultrasound, negative for adenopathy. 9. Removal of left tissue java user interface developer mid November 2015 with antibiotics for Staph infection. 10. 06/21/2016 the patient underwent left breast reconstruction with latissimus dorsi flap. Immediate insertion of implant, excision of scar or left chest. The procedure was tolerated well. She has planned fat transfer procedures and nipple reconstruction but has not had any complications since most recent procedure in October 2016. She recently had nipple tattoo left breast, no issues. 11. She underwent hysterectomy with bilateral oophorectomy from Dr. Hayes in [place] in April 2017. I requested original pathology and it revealed high-grade cervical dysplasia but no invasive current cervical cancer or endometrial malignancy. 12. DEXA scan performed 07/06/2017 reveals stable mild osteopenia with T score - 1.5 lumbar spine, T score -1.2 left femoral neck, T score -1.8 right femoral neck. She saw Dr. Asencio of endocrinology who adjusted her thyroid medication and stopped her calcium as she noted she was in a calcium overload state . He is reevaluating her in March 2018 for possible addition of vitamin D. I am recommending that he follows her stable osteopenia. --Follow-up DEXA scan performed 09/03/2019: AP spine T score now -2, osteopenia; left femoral neck T score -1.3, osteopenia; right femoral neck T score -1.8, osteopenia. She still does not take calcium due to Dr. Asencio recommending notto take additional Caltrate from increased calcium. Follow-up with him on 09/09/2019 and we will also review her thyroid studies which show a low TSH 0.25 and elevated free T4 1.31 (I presume he will recommend decreasing her levothyroxine back to 100 mcg daily). --DEXA reviewed from 10/06/2021: I will defer management of her osteopenia to . 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 First at 18. 4, para 3, AB 1. She has not had any hot flashes. She took control pills for several years but never took hormone replacement therapy. Last menstrual period was spring. MEDICATIONS: Previously took tamoxifen 20 mg daily from October 2014 to June 2015, then was changed to Arimidex 1 mg daily on July 02, 2015. She was placed on Synthroid 100 ?g daily for hypothyroidism. She no longer requires pain medication from her surgery. Thyroid medication has been adjusted by Dr. Asencio and he recommended holding her calcium for the next 3 months due to relative hypercalcemia on Arimidex. DEXA scan previously showed mild osteopenia. ALLERGIES: Intolerance of pegfilgrastim from Neulasta causing rash. SOCIAL HISTORY: She returned to work after her breast reconstruction at [employer] (since 2014), recently was off work due to COVID-19 pandemic but returned to work yesterday. She previously had smoked a pack of cigarettes per day for 30 years and stopped smoking in mid June 2016 with mild weight gain. She does not drink alcohol or use recreational drugs and is enrolled on [place] Medicaid. She is unaccompanied today. - Summary of Therapies Summary of Therapies: 1. The patient completed four cycles of Taxotere, Cytoxan at full dose between June and August of 2014. 2. She received 42.56 Gy in 16 divided fractions to the whole breast followed by10 Gy boost in 4 divided fractions of radiation therapy from 09/29/2014 through 10/27/2014. 3. The patient started tamoxifen therapy in 10/2014. Her last menstrual period was with her second cycle of chemotherapy in 07/2014 and an estradiol level ordered in 10/2014 was less than 5. No recurrent menses since July 2014. 4. Left mastectomy with immediate reconstruction on 06/17/2015. Removal of tissue java user interface developer due to infection 07/20/2015. 5. Tamoxifen was changed to Arimidex 1 mg daily on 07/02/2015. Patient tolerating well. Will complete 5-7 years of hormonal therapy. 6. Second left tissue java user interface developer removed due to infection 11/16/2015. 7. Left breast Latissimus dorsi reconstruction with implant 06/21/2016. 8. Cervical dysplasia requiring LEEP and underwent hysterectomy with bilateral oophorectomy April 2017, reviewed records from [facility]. 9. Adjuvant hormone therapy Tamoxifen 20 mg daily from 10/2014 to June 2015. Switch from tamoxifen to aromatase inhibitor given her early recurrence. Arimidex 1 mg on July 02, 2015. Stopped Arimidex after f/u visit 10/14/2020. ROS Details: All systems reviewed & no additional complaints except as documented Subjective/ROS - Narrative: Constitutional: Negative: No chills, fatigue, fever, night sweats, weakness HEENT: Negative: Blurred vision, headaches, epistaxis, rhinorrhea, sore throat Cardiovascular: Negative: Chest pain, edema, palpitations Respiratory: Negative: Cough, shortness of breath, hemoptysis Gastrointestinal: Negative: pain, bloating, constipation, diarrhea, nausea, vomiting Genitourinary: Negative: Frequency, dysuria, flank pain, hematuria Genitalia: Negative: Discharge, masses, hernia Breasts: Negative: mass, discharge, dimpling. Negative: left breast/muscle implant-pain Neurologic: Negative: Dizziness, headache, numbness, tingling Psychiatric: Negative: Anxiety, depression, sleep changes--appropriate grief with of daughter last year Hematologic/lymphatic: Negative: Bleeding, bruising, enlarged lymph nodes Endocrine: Negative: Excessive sweating, flushing, intolerance to cold, intolerance to heat, weight gain/loss Allergic/immunology: Negative: Pruritus, rash PMFSH - History Attestation statement: The following information was validated with the patient. Source: Old Records Reviewed - Medical History Medical History: Medical History (Last Reviewed 10/17/21 @ 13:48 by Rosie Givens MD) Breast cancer left-treated with surgery, chemo, & radiation History of staph infection Removal of left tissue java user interface developer 11/2015 with left breast latissimus dorsi reconstruction with implant 06/21/2016 Hypothyroidism Osteopenia - Surgical History Surgical History: Surgical History (Last Reviewed 10/17/21 @ 13:48 by Rosie Givens MD) H/O left mastectomy with reconstruction 06/17/2015 H/O: hysterectomy With bilateral oophorectomy from Dr. Hayes in [place] 04/2017. Original pathology showed high-grade cervical dysplasia, no invasive current cervical cancer or endometrial malignancy. History of right breast implant - Family History Family History: Family History (Last Reviewed 10/17/21 @ 13:48 by Rosie Givens MD) Mother Diabetes Son Diabetes Father , age 81 COPD (chronic obstructive pulmonary disease) - Social History Smoking Status: Former smoker Tobacco Type: cigarettes Substance Use Type: None Social History Comments: Works at [employer] since 2014. Former smoker 1ppd/30years.quit 06/2016. First at age 18. 4 para 3, ab 1. Home Medications & Allergies Allergies pegfilgrastim Allergy (Verified 10/15/21 15:42) Hives Home Medications levothyroxine 125 mcg tablet 100 mcg PO QAM 03/07/19 [History Confirmed 10/15/21] Objective - Height/Weight Height/Weight: Height 5 ft 2 in Weight 54.431 kg - Vital Signs Vital Signs: 10/15/21 15:43 Temperature 97.8 F Pulse Rate [Right Brachial] 68 Respiratory Rate 16 Blood Pressure [Right Arm] 107/72 02 Sat by Pulse Oximetry 97 - Distress Screening Distress Screen Results: RN Distress Screening Start: 01/18/17 09:56 Freq: Q30D Status: Complete Protocol: Document 07/12/18 10:46 AD (Rec: 07/12/18 10:46 AD [id number]) Distress Screening Distress Score: 0 No worry/distress Distress Screening Total 0 Physical Exam Narrative: Constitutional: No acute distress, well-nourished, physically fit, alert/oriented x3, cooperative HEENT: Head: Normocephalic, atraumatic; Eyes: EOMI, PERRL, clear conjunctiva; ENT: Moist mucous membrane, oropharynx clear, nares patent Neck: Supple, full range of motion, no cervical/supraclavicular adenopathy Chest/breast/axilla exam: no left breast discomfort, s/p left breast reconstruction, nipple tattoo well-healed implant in place. Right breast augmentation well healed. Respiratory: No accessory muscle use, anterior and posterior chest clear, no rales, no respiratory distress no rhonchi, no wheeze, room air Cardiovascular: RRR, no murmur, no rubs, no gallop, no peripheral edema Gastrointestinal: Normal active bowel sounds, no tenderness, no distention, no mass, no organomegaly, no bleeding Groin: No inguinal lymphadenopathy Back/spine/pelvis exam: Full range of motion, no tenderness Skin: Intact, dry, warm, normal turgor Neurologic: Alert, oriented x3, cranial nerves II-XII intact, reflexes, moving all extremities, vision grossly intact, hearing grossly intact, normal speech normal gait, no tremors Psychiatric: Normal affect, normal thought process, cooperative - ECOG Performance Status ECOG Score: 0 Results - Labs Labs: No recent laboratories for review - Impressions RIGHT SCREENING MAMMOGRAMS - FULL FIELD DIGITAL WITH TOMOSYNTHESIS AND CAD Routine and implant displacement tomosynthesis craniocaudal and mediolateral oblique views of the right breast were obtained using low-dose digital technique. Comparison is made to prior studies from July 09, 2018 through September 03, 2020. This examination was reviewed with the aid of CAD. A retropectoral silicone implant is present. This may obscure breast tissue. There are scattered fibroglandular densities. There are no dominant masses, typically malignant calcifications or architectural distortion. There has been no significant interval change. MM/MM screening mammo RT w/CAD IMPRESSION: NO MAMMOGRAPHIC EVIDENCE OF MALIGNANCY. ROUTINE FOLLOW-UP IS RECOMMENDED IN ONE YEAR. RESULT CODE: 1 Negative DENSITY CODE: 2 (approximately 25-50% glandular) FOLLOW UP: 1YR The false-negative rate of mammography is approximately 10-percent. Management of a palpable abnormality must be based on clinical grounds. Patient was entered into a reminder system with a target due date for the next mammogram. 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 T1c N0 M0 --Oncotype DX testing with a recurrence score of 29 which correlates to a 19%, 10 year risk of distant recurrence in the intermediate risk group on the high end of the scale. The HER-2 score (on Oncotype) was 9.0, which was negative; therefore, the patient did not receive HER-2 directed therapy. (1) Breast cancer of upper-outer quadrant of left female breast Qualifiers: Estrogen receptor status: positive Qualified Code(s): C50.412 - Malignant neoplasm of upper-outer quadrant of left female breast; Z17.0 - Estrogen receptor positive status [ER+] This is a 61-year-old female, who presented with stage I breast cancer 5 years ago and has completed adjuvant chemotherapy, radiation therapy, and tamoxifen/changed to anastrozole therapy ongoing after prior lumpectomy. She was found to have a cluster of malignant cells on biopsy of a small abnormality on mammogram 05/2015. The patient consented to left mastectomy with immediate reconstruction on 06/16/2015, but had postoperative wound infection necessitating removal of her tissue java user interface developer and implant placement has been delayed. Dr. De Los Santos of plastic surgery placed a second tissue java user interface developer at the left mastectomy site, but this was also removed in mid November 2015 for Staph wound infection and she has recovered well. She underwent latissimus dorsi flap which is now well-healed. Most recent revision surgery with Dr. De Los Santos 03/2019. October 2020 exam and 09/2020 mammogram shows no evidence of recurrence. Her therapy and endocrine therapy was switched from tamoxifen to aromatase inhibitor given her early recurrence. She is status post hysterectomy April 2017 for cervical dysplasia and well-healed. She has tolerated Arimidex well without hot flashes or myalgias and we decided to stop one year ago after completing over 5 years of aromatase inhibitor therapy. Now that she is over 7 years from diagnosis, she will followup now annually with right mammogram with general surgery and primary care. She may return to medical oncology on an as needed basis. This is a low complexity f/u over 15 minutes to review history, exam, mammography, 2 year DEXA, and surveillance plan. (2) Osteopenia Qualifiers: Laterality: unspecified laterality Baseline bone density test was performed in July 2015 showing mild osteopenia--her most recent DEXA was in September 2019 showing persistent mild osteopenia that is somewhat worse from 2018. Her previous calcium 1200 mg per day with vitamin D 600 international units per day has been on hold by Dr. Asencio due to prior changes in her thyroid function and stable findings on DEXA scan reviewed at followup on 09/09/2019. I will defer recommendations for osteopenia management to Dr. Asencio. --09/2019: calcium was stabilized. Her next DEXA scan will be due 09/2021. --10/2021: 2 year DEXA scan reviewed, osteopenia stable. Continue f/u with primary care and endocrinology. (3) Hypothyroidism Qualifiers: Hypothyroidism type: acquired Qualified Code(s): E03.9 - Hypothyroidism, unspecified She remains on levothyroxine therapy 125 mcg po daily that is managed by Dr. Asencio. (4) Encounter for monitoring aromatase inhibitor therapy Tolerated anastrozole 1mg daily for planned 5 year course--stopped at visit 10/14/2020. - Chemo Plan Chemo Plan (Dose, Rate, Freq): Anastrozole 1mg po daily for 5 year course completed 10/2020. Goal of Treatment: Curative - Time with Patient Time Spent with Patient (Follow Up Visit): 25 minutes - Low complexity visit for exam, mammogram and DEXA review Coordination of Care & Counseling Time: Greater than 50% of time spent with patient was for coordination of care (as documented) and [id number] counseling of patient and/or family. Dictated By: Rosie Givens MD DD/ [id number] Signed By: <Electronically signed by MD Rosie Givens> 10/17/21 135[address] [facility] Work Phone: [phone]) 565-172602-15-2022 History general Narrative - Reported* Type Description Date Medical History Breast cancer L Medical History Hypothyroidism Surgical History Lumpectomy 05/18 Surgical History Breast recon 2016 Surgical History marilia procedure 04/2016 Surgical History reconstruction 06/2016 Surgical History left mastectomy 06/2015 Hospitalization History see above [employer] Other 07-14-2021 Progress note Author Rosie Givens [facility] October 14, 2020 9:23pm Note Date/Time October 14, 2020 4:19 pm [facility] at [address] [address] Hem/Onc Follow Up Note - OP Signed Patient: Gabriella Rodriguez MR#: [id number] : 1960 Acct:[id number] Age/Sex: 60 / F Type: REG RCR Copies to: NON STAFF MD Jurgen Dial, ~ Subjective Date/Time of Service: Date of Service: 10/14/2020 Time of Service: 15:41 Chief Complaint: Patient is here today for 1 year follow up visit for hx: breastcancer and she had her mamogram 09/03/2020. No new concerns. HPI: Gabriella is here for 11-month follow-up of T1c N0 M0 left breast cancer. She denies any change in self breast exam and underwent left breast implant revisionsurgery with Dr. De Los Santos 03/2019. She denies discomfort in the left breast/axillary region, arm lymphedema, or palpable axillary lymph nodes. She denies any nausea, vomiting, diarrhea, constipation, hot flashes, and arthralgia/myalgias. Tolerates anastrozole well. Her daughter earlier this month and she is grieving her loss --DEXA showed persistent osteopenia (see #12 below) and low TSH with elevated FT4--will address at f/u with Dr. Asencio on 09/09/2019. Now on additional Vit D, once daily Ca. --Now 6 years from diagnosis, she may now discontinue Anastrozole after completing 5 years following initial Tamoxifen. 1 year f/u after annual right mammogram. --She continues to follow annually with General surgery and primary care. She may followup with medical oncology on an as needed basis. DIAGNOSIS: 1. 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 The patient underwent left lumpectomy and sentinel lymph node dissection on 05/13/2014; all six sentinel lymph nodes were negative for metastatic cancer. 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 Posterior margin was focally positive with invasive cancer; ER/PRpositive and HER-2 also equivocal on the lumpectomy specimen. 2. Specimen was sent for Oncotype DX testing with a recurrence score of 29 whichcorrelates to a 19%, 10 year risk of distant recurrence in the intermediate riskgroup on the high end of the scale. The HER-2 score (on Oncotype) was 9.0, whichwas negative; therefore, the patient did not receive HER-2 directed therapy. 3. The patient was sent for liver ultrasound due to a questionable density on staging CT. There was no space occupying lesion seen although liver was heterogeneous in texture and consideration of follow-up CT or MRI of the liver was recommended by radiology for interval follow-up. The patient also had a baseline MUGA scan for cardiac function and had normal left ventricular function. 4. Note, the patient was seen the 3rd week of first cycle of chemotherapy where she was noted to have a rash overlying the right hand at the 4th and 5th metacarpals. This was thought to be a mild chemotherapy extravasation. She did not experience any scarring of the area. 5. Her one year followup bilateral mammogram on April 15, 2015 did show scattered fibroglandular densities with trabeculation and skin thickening on theleft related to radiation therapy. There was an area of subtle calcifications just inferior and slightly medial to the lumpectomy site. This could not be excluded as residual DCIS radiating away from the area of prior mass on initial studies February and March 2014. There were no masses or abnormalities of theright breast. Dr. Garcia saw patient and recommended biopsy. This biopsy 04/28/2015 performed at 11:00, 3 cm from the nipple of the left breast showed fragments of breast tissue with a minute 0.3 mm focus of malignant epithelial cells, nuclear grade 2-3. At least ductal carcinoma in situ was likely area there were microcalcifications associated with fibrous stroma and focal fat necrosis. 6. This case was discussed in [facility] cancer conference and the decision was made to perform left mastectomy with immediate reconstruction by Dr. Marcos Garcia and Dr. Trevor De Los Santos on 06/16/2015. She required 2 courses of postoperative antibiotics due to infection. She had removal of her tissue java user interface developer on 07/20/2015 due to recurrent infection. She returned to work after short-term disability on July 14, then laid off due to staffing issues. She initiated anastrozole in June 2015 which she has tolerated well. 7. The patient underwent a second breast reconstruction of the left breast withplacement of tissue java user interface developer on 11/03/2015. 8. Noted on exam 11/05/2015 to have right supraclavicular fullness of unclear etiology. Sent for supraclavicular ultrasound, negative for adenopathy. 9. Removal of left tissue java user interface developer mid November 2015 with antibiotics for Staph infection. 10. 06/21/2016 the patient underwent left breast reconstruction with latissimus dorsi flap. Immediate insertion of implant, excision of scar or left chest. The procedure was tolerated well. She has planned fat transfer procedures and nipple reconstruction but has not had any complications since most recent procedure in October 2016. She recently had nipple tattoo left breast, no issues. 11. She underwent hysterectomy with bilateral oophorectomy from Dr. Hayes in [place] in April 2017. I requested original pathology and it revealed high-grade cervical dysplasia but no invasive current cervical cancer or endometrial malignancy. 12. DEXA scan performed 07/06/2017 reveals stable mild osteopenia with T score - 1.5 lumbar spine, T score -1.2 left femoral neck, T score -1.8 right femoral neck. She saw Dr. Asencio of endocrinology who adjusted her thyroid medication and stopped her calcium as she noted she was in a calcium overload state . He is reevaluating her in March 2018 for possible addition of vitamin D. I am recommending that he follows her stable osteopenia. --Follow-up DEXA scan performed 09/03/2019: AP spine T score now -2, osteopenia; left femoral neck T score -1.3, osteopenia; right femoral neck T score -1.8, osteopenia. She still does not take calcium due to Dr. Asencio recommending notto take additional Caltrate from increased calcium. She has follow-up with him on 09/09/2019 and we will also review her thyroid studies which show a low TSH 0.25 and elevated free T4 1.31 (I presume he will recommend decreasing her levothyroxine back to 100 mcg daily). I will defer management of her osteopeniato Dr. Asencio. 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 First at 18. 4, para 3, AB 1. She has not had any hot flashes. She took control pills for several years but never took hormone replacement therapy. Last menstrual period was spring. MEDICATIONS: Previously took tamoxifen 20 mg daily from October 2014 to June 2015, then was changed to Arimidex 1 mg daily on July 02, 2015. She was placed on Synthroid 100 ?g daily for hypothyroidism. She no longer requires pain medication from her surgery. Thyroid medication has been adjusted by Dr. Asencio and he recommended holding her calcium for the next 3 months due to relative hypercalcemia on Arimidex. DEXA scan previously showed mild osteopenia. ALLERGIES: Intolerance of pegfilgrastim from Neulasta causing rash. SOCIAL HISTORY: She returned to work after her breast reconstruction at [employer] (since 2014), recently was off work due to COVID-19 pandemic but returned to work yesterday. She previously had smoked a pack of cigarettes per day for 30 years and stopped smoking in mid June 2016 with mild weight gain. She does not drink alcohol or use recreational drugs and is enrolled on [place] Medicaid. She is unaccompanied today. - Summary of Therapies Summary of Therapies: 1. The patient completed four cycles of Taxotere, Cytoxan at full dose between June and August of 2014. 2. She received 42.56 Gy in 16 divided fractions to the whole breast followed by10 Gy boost in 4 divided fractions of radiation therapy from 09/29/2014 through 10/27/2014. 3. The patient started tamoxifen therapy in 10/2014. Her last menstrual period was with her second cycle of chemotherapy in 07/2014 and an estradiol level ordered in 10/2014 was less than 5. No recurrent menses since July 2014. 4. Left mastectomy with immediate reconstruction on 06/17/2015. Removal of tissue java user interface developer due to infection 07/20/2015. 5. Tamoxifen was changed to Arimidex 1 mg daily on 07/02/2015. Patient tolerating well. Will complete 5-7 years of hormonal therapy. 6. Second left tissue java user interface developer removed due to infection 11/16/2015. 7. Left breast Latissimus dorsi reconstruction with implant 06/21/2016. 8. Cervical dysplasia requiring LEEP and underwent hysterectomy with bilateral oophorectomy April 2017, reviewed records from [facility]. 9. Adjuvant hormone therapy Tamoxifen 20 mg daily from 10/2014 to June 2015. Switch from tamoxifen to aromatase inhibitor given her early recurrence. Arimidex 1 mg on July 02, 2015. Stopping Arimidex after f/u visit 10/14/2020. ROS Details: All systems reviewed & no additional complaints except as documented Subjective/ROS - Narrative: Constitutional: Negative: No chills, fatigue, fever, night sweats, weakness HEENT: Negative: Blurred vision, headaches, epistaxis, rhinorrhea, sore throat Cardiovascular: Negative: Chest pain, edema, palpitations Respiratory: Negative: Cough, shortness of breath, hemoptysis Gastrointestinal: Negative: pain, bloating, constipation, diarrhea, nausea, vomiting Genitourinary: Negative: Frequency, dysuria, flank pain, hematuria Genitalia: Negative: Discharge, masses, hernia Breasts: Negative: mass, discharge, dimpling. Negative: left breast/muscle implant-pain Neurologic: Negative: Dizziness, headache, numbness, tingling Psychiatric: Negative: Anxiety, depression, sleep changes--appropriate grief with of daughter Hematologic/lymphatic: Negative: Bleeding, bruising, enlarged lymph nodes Endocrine: Negative: Excessive sweating, flushing, intolerance to cold, intolerance to heat, weight gain/loss Allergic/immunology: Negative: Pruritus, rash PMFSH - History Attestation statement: The following information was validated with the patient. Source: Old Records Reviewed - Medical History Medical History: Medical History (Last Reviewed 10/14/20 @ 21:12 by Rosie Givens MD) Breast cancer left-treated with surgery, chemo, & radiation History of staph infection Removal of left tissue java user interface developer 11/2015 with left breast latissimus dorsi reconstruction with implant 06/21/2016 Hypothyroidism Osteopenia - Surgical History Surgical History: Surgical History (Last Reviewed 10/14/20 @ 21:13 by Rosie Givens MD) H/O left mastectomy with reconstruction 06/17/2015 H/O: hysterectomy With bilateral oophorectomy from Dr. Hayes in [place] 04/2017. Original pathology showed high-grade cervical dysplasia, no invasive current cervical cancer or endometrial malignancy. History of right breast implant - Family History Family History: Family History (Last Reviewed 10/14/20 @ 21:13 by Rosie Givens MD) Mother Diabetes Son Diabetes Father , age 81 COPD (chronic obstructive pulmonary disease) - Social History Smoking Status: Former smoker Tobacco Type: cigarettes Substance Use Type: None Social History Comments: Works at [employer] since 2014. Former smoker 1ppd/30years.quit 06/2016. First at age 18. 4 para 3, ab 1. Home Medications & Allergies Allergies pegfilgrastim Allergy (Verified 10/14/20 15:36) Hives Home Medications levothyroxine 125 mcg tablet 100 mcg PO QAM 03/07/19 [History Confirmed 10/14/20] Objective - Height/Weight Height/Weight: Height 5 ft 2 in Weight 52.163 kg - Vital Signs Vital Signs: 10/14/20 15:37 Temperature 98.0 F Pulse Rate [Right Brachial] 84 Respiratory Rate 20 Blood Pressure [Right Arm] 111/71 02 Sat by Pulse Oximetry 98 - Emotional Needs Assessment Emotional Needs Assessment: Emotional Needs Identified? Yes: sad about losing her daugther Distress Screening Total 3 Physical Exam Narrative: Constitutional: No acute distress, well-nourished, physically fit, alert/oriented x3, cooperative HEENT: Head: Normocephalic, atraumatic; Eyes: EOMI, PERRL, clear conjunctiva; ENT: Moist mucous membrane, oropharynx clear, nares patent Neck: Supple, full range of motion, no cervical/supraclavicular adenopathy Chest/breast/axilla exam: no left breast discomfort, s/p left breast reconstruction, nipple tattoo well-healed implant in place. Right breast augmentation well healed. Respiratory: No accessory muscle use, anterior and posterior chest clear, no rales, no respiratory distress no rhonchi, no wheeze, room air Cardiovascular: RRR, no murmur, no rubs, no gallop, no peripheral edema Gastrointestinal: Normal active bowel sounds, no tenderness, no distention, no mass, no organomegaly, no bleeding Groin: No inguinal lymphadenopathy Back/spine/pelvis exam: Full range of motion, no tenderness Skin: Intact, dry, warm, normal turgor Neurologic: Alert, oriented x3, cranial nerves II-XII intact, reflexes, moving all extremities, vision grossly intact, hearing grossly intact, normal speech normal gait, no tremors Psychiatric: Normal affect, normal thought process, cooperative - ECOG Performance Status ECOG Score: 0 Results - Labs Labs: 09/2020--normal renal function - Impressions Date of Service: 09/03/20 MM/MM screening mammo RT w/CAD: prior mastectomy L breast cancer, has implant Copies to: NON STAFF Rosie Givens MD~ CLINICAL DATA: Screening for malignancy. Prior left mastectomy and right breast augmentation RIGHT SCREENING MAMMOGRAMS - FULL FIELD DIGITAL WITH TOMOSYNTHESIS AND CAD Routine and implant displacement tomosynthesis craniocaudal and mediolateral oblique views of the right breast were obtained using low-dose digital technique. Comparison is made to prior studies from July 09, 2018 and September 03, 2019. This examination was reviewed with the aid of CAD. A retropectoral silicone implant is again visualized. This may obscure breast tissue. The breast parenchyma has been largely replaced by fat. There are no dominant masses, typically malignant calcifications or architectural distortion. There has been no significant interval change. MM/MM screening mammo RT w/CAD IMPRESSION: NO MAMMOGRAPHIC EVIDENCE OF MALIGNANCY. ROUTINE FOLLOW-UP IS RECOMMENDED IN ONE YEAR. RESULT CODE: 1 Negative DENSITY CODE: 1 (<25% glandular) FOLLOW UP: 1YR The false-negative rate of mammography is approximately 10-percent. Management of a palpable abnormality must be based on clinical grounds. Patient was entered into a reminder system with a target due date for the next mammogram. Impression dictated by: Chapis Marti M.D.09/03/2020 9:22 AM Assessment and Plan - TNM Staging Staging: Invasive ductal carcinoma, 1.1 cm in diameter, nuclear grade 2; estrogen receptor 95%, progesterone receptor 85% and HER-2/kate equivocal, by IHC staining2+ with subsequent HER-2 CEP-17 ratio 1.2 and HER-2 spot count 4.3, which was also equivocal. T1c N0 M0 --Oncotype DX testing with a recurrence score of 29 which correlates to a 19%, 10 year risk of distant recurrence in the intermediate risk group on the high end of the scale. The HER-2 score (on Oncotype) was 9.0, which was negative; therefore, the patient did not receive HER-2 directed therapy. (1) Breast cancer of upper-outer quadrant of left female breast Qualifiers: Estrogen receptor status: positive Qualified Code(s): C50.412 - Malignant neoplasm of upper-outer quadrant of left female breast; Z17.0 - Estrogen receptor positive status [ER+] This is a 60-year-old female, who presented with stage I breast cancer 5 years ago and has completed adjuvant chemotherapy, radiation therapy, and tamoxifen/changed to anastrozole therapy ongoing after prior lumpectomy. She was found to have a cluster of malignant cells on biopsy of a small abnormality on mammogram 05/2015. The patient consented to left mastectomy with immediate reconstruction on 06/16/2015, but had postoperative wound infection necessitating removal of her tissue java user interface developer and implant placement has been delayed. Dr. De Los Santos of plastic surgery placed a second tissue java user interface developer at the left mastectomy site, but this was also removed in mid November 2015 for Staph wound infection and she has recovered well. She underwent latissimus dorsi flap which is now well-healed. Most recent revision surgery with Dr. De Los Santos 03/2019. October 2020 exam and 09/2020 mammogram shows no evidence of recurrence. Her therapy and endocrine therapy was switched from tamoxifen to aromatase inhibitor given her early recurrence. She is status post hysterectomy April 2017 for cervical dysplasia and well-healed. She has tolerated Arimidex well without hot flashes or myalgias and we decided today to stop after completing over 5 years of aromatase inhibitor therapy. Now that she is over 6 years from diagnosis, she will followup now annually with right mammogram with general surgery and primary care. She may return to medical oncology on an as needed basis. This is a low complexity f/u over 15 minutes to review history, exam, mammography, and surveillance plan. (2) Osteopenia Qualifiers: Laterality: unspecified laterality Baseline bone density test was performed in July 2015 showing mild osteopenia--her most recent DEXA was in September 2019 showing persistent mild osteopenia that is somewhat worse from 2018. Her previous calcium 1200 mg per day with vitamin D 600 international units per day has been on hold by Dr. Asencio due to prior changes in her thyroid function and stable findings on DEXA scan reviewed at followup on 09/09/2019. I will defer recommendations for osteopenia management to Dr. Asencio. --09/2019: calcium was stabilized. Her next DEXA scan will be due 09/2021. (3) Hypothyroidism Qualifiers: Hypothyroidism type: acquired Qualified Code(s): E03.9 - Hypothyroidism, unspecified She remains on levothyroxine therapy 100 mcg po daily that is managed by Dr. Asencio. (4) Encounter for monitoring aromatase inhibitor therapy Tolerated anastrozole 1mg daily for planned 5 year course--stopped at visit 10/14/2020. - Chemo Plan Chemo Plan (Dose, Rate, Freq): Anastrozole 1mg po daily for 5 year course Goal of Treatment: Curative - Time with Patient Time Spent with Patient (Follow Up Visit): Less than 20 minutes Coordination of Care & Counseling Time: Greater than 50% of time spent with patient was for coordination of care (as documented) and [id number] counseling of patient and/or family. Dictated By: Rosie Givens MD DD/ [id number] Signed By: <Electronically signed by MD Rosie Givens> 10/14/20 [id number] [facility] Work Phone: [phone]) 427-615906-04-2020 Progress note Author Rosie Givens [facility] September 05, 2019 6:31pm Note Date/Time September 05, 2019 8:45a m [facility] [place] [address] Hem/Onc Follow Up Note - OP Signed Patient: Gabriella Rodriguez MR#: [id number] : 1960 Acct:[id number] Age/Sex: 59 / F Type: REG RCR Copies to: NON STAFF MD Jurgen Dial, DO~ Subjective Date/Time of Service: Date of Service: 09/05/2019 Time of Service: 08:45 Chief Complaint: Patient is here for follow up history of breast cancer with mammogram and dexascan for review. On Anastrozole with no concerns voiced. HPI: Gabriella is here for 6-month follow-up of T1c N0 M0 left breast cancer. She deniesany change in self breast exam and underwent left breast implant revision surgery with Dr. De Los Santos 03/2019. She denies discomfort in the left breast/axillary region, arm lymphedema, or palpable axillary lymph nodes. She denies any nausea, vomiting, diarrhea, constipation, hot flashes, and arthralgia/myalgias. Tolerates anastrozole well. --DEXA shows persistent osteopenia (see #12 below) and low TSH with elevated FT4--will address at f/u with Dr. Asencio on 09/09/2019. --Now 5 years from diagnosis, continue Anastrozole for a minimum of 5 years. 1 year f/u after annual right mammogram. DIAGNOSIS: 1. 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 The patient underwent left lumpectomy and sentinel lymph node dissection on 05/13/2014; all six sentinel lymph nodes were negative for metastatic cancer. 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 Posterior margin was focally positive with invasive cancer; ER/PRpositive and HER-2 also equivocal on the lumpectomy specimen. 2. Specimen was sent for Oncotype DX testing with a recurrence score of 29 whichcorrelates to a 19%, 10 year risk of distant recurrence in the intermediate riskgroup on the high end of the scale. The HER-2 score (on Oncotype) was 9.0, whichwas negative; therefore, the patient did not receive HER-2 directed therapy. 3. The patient was sent for liver ultrasound due to a questionable density on staging CT. There was no space occupying lesion seen although liver was heterogeneous in texture and consideration of follow-up CT or MRI of the liver was recommended by radiology for interval follow-up. The patient also had a baseline MUGA scan for cardiac function and had normal left ventricular function. 4. Note, the patient was seen the 3rd week of first cycle of chemotherapy where she was noted to have a rash overlying the right hand at the 4th and 5th metacarpals. This was thought to be a mild chemotherapy extravasation. She did not experience any scarring of the area. 5. Her one year followup bilateral mammogram on April 15, 2015 did show scattered fibroglandular densities with trabeculation and skin thickening on theleft related to radiation therapy. There was an area of subtle calcifications just inferior and slightly medial to the lumpectomy site. This could not be excluded as residual DCIS radiating away from the area of prior mass on initial studies February and March 2014. There were no masses or abnormalities of Manicubeight breast. Dr. Garcia saw patient and recommended biopsy. This biopsy 04/28/2015 performed at 11:00, 3 cm from the nipple of the left breast showed fragments of breast tissue with a minute 0.3 mm focus of malignant epithelial cells, nuclear grade 2-3. At least ductal carcinoma in situ was likely area there were microcalcifications associated with fibrous stroma and focal fat necrosis. 6. This case was discussed in [facility] cancer conference and the decision was made to perform left mastectomy with immediate reconstruction by Dr. Marcos Garcia and Dr. Trevor De Los Santos on 06/16/2015. She required 2 courses of postoperative antibiotics due to infection. She had removal of her tissue java user interface developer on 07/20/2015 due to recurrent infection. She returned to work after short-term disability on July 14, then laid off due to staffing issues. She initiated anastrozole in June 2015 which she has tolerated well. 7. The patient underwent a second breast reconstruction of the left breast withplacement of tissue java user interface developer on 11/03/2015. 8. Noted on exam 11/05/2015 to have right supraclavicular fullness of unclear etiology. Sent for supraclavicular ultrasound, negative for adenopathy. 9. Removal of left tissue java user interface developer mid November 2015 with antibiotics for Staph infection. 10. 06/21/2016 the patient underwent left breast reconstruction with latissimus dorsi flap. Immediate insertion of implant, excision of scar or left chest. The procedure was tolerated well. She has planned fat transfer procedures and nipple reconstruction but has not had any complications since most recent procedure in October 2016. She recently had nipple tattoo left breast, no issues. 11. She underwent hysterectomy with bilateral oophorectomy from Dr. Hayes in [place] in April 2017. I requested original pathology and it revealed high-grade cervical dysplasia but no invasive current cervical cancer or endometrial malignancy. 12. DEXA scan performed 07/06/2017 reveals stable mild osteopenia with T score - 1.5 lumbar spine, T score -1.2 left femoral neck, T score -1.8 right femoral neck. She saw Dr. Asencio of endocrinology who adjusted her thyroid medication and stopped her calcium as she noted she was in a calcium overload state . He is reevaluating her in March 2018 for possible addition of vitamin D. I am recommending that he follows her stable osteopenia. --Follow-up DEXA scan performed 09/03/2019: AP spine T score now -2, osteopenia; left femoral neck T score -1.3, osteopenia; right femoral neck T score -1.8, osteopenia. She still does not take calcium due to Dr. Asencio recommending notto take additional Caltrate from increased calcium. She has follow-up with him on 09/09/2019 and we will also review her thyroid studies which show a low TSH 0.25 and elevated free T4 1.31 (I presume he will recommend decreasing her levothyroxine back to 100 mcg daily). I will defer management of her osteopeniato Dr. Asencio. 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 First at 18. 4, para 3, AB 1. She has not had any hot flashes. She took control pills for several years but never took hormone replacement therapy. Last menstrual period was spring. MEDICATIONS: Previously took tamoxifen 20 mg daily from October 2014 to June 2015, then was changed to Arimidex 1 mg daily on July 02, 2015. She was placed on Synthroid 100 ?g daily for hypothyroidism. She no longer requires pain medication from her surgery. Thyroid medication has been adjusted by Dr. Asencio and he recommended holding her calcium for the next 3 months due to relative hypercalcemia on Arimidex. DEXA scan previously showed mild osteopenia. ALLERGIES: Intolerance of pegfilgrastim from Neulasta causing rash. SOCIAL HISTORY: She returned to work after her breast reconstruction at [employer] (since 2014), recently was off work due to COVID-19 pandemic but returned to work yesterday. She previously had smoked a pack of cigarettes per day for 30 years and stopped smoking in mid June 2016 with mild weight gain. She does not drink alcohol or use recreational drugs and is enrolled on [place] Medicaid. She is unaccompanied today. - Summary of Therapies Summary of Therapies: 1. The patient completed four cycles of Taxotere, Cytoxan at full dose between June and August of 2014. 2. She received 42.56 Gy in 16 divided fractions to the whole breast followed by10 Gy boost in 4 divided fractions of radiation therapy from 09/29/2014 through 10/27/2014. 3. The patient started tamoxifen therapy in 10/2014. Her last menstrual period was with her second cycle of chemotherapy in 07/2014 and an estradiol level ordered in 10/2014 was less than 5. No recurrent menses since July 2014. 4. Left mastectomy with immediate reconstruction on 06/17/2015. Removal of tissue java user interface developer due to infection 07/20/2015. 5. Tamoxifen was changed to Arimidex 1 mg daily on 07/02/2015. Patient tolerating well. Will complete 5-7 years of hormonal therapy. 6. Second left tissue java user interface developer removed due to infection 11/16/2015. 7. Left breast Latissimus dorsi reconstruction with implant 06/21/2016. 8. Cervical dysplasia requiring LEEP and underwent hysterectomy with bilateral oophorectomy April 2017, reviewed records from [facility]. 9. Adjuvant hormone therapy Tamoxifen 20 mg daily from 10/2014 to June 2015. Switch from tamoxifen to aromatase inhibitor given her early recurrence. Arimidex 1 mg on July 02, 2015 ROS Details: All systems reviewed & no additional complaints except as documented Subjective/ROS - Narrative: Subjective/ROS-narrative: Constitutional: Negative: No chills, fatigue, fever, night sweats, weakness HEENT: Negative: Blurred vision, headaches, epistaxis, rhinorrhea, sore throat Cardiovascular: Negative: Chest pain, edema, palpitations Respiratory: Negative: Cough, shortness of breath, hemoptysis Gastrointestinal: Negative: pain, bloating, constipation, diarrhea, nausea, vomiting Genitourinary: Negative: Frequency, dysuria, flank pain, hematuria Genitalia: Negative: Discharge, masses, hernia Breasts: Negative: mass, discharge, dimpling. Positive: left breast/muscle implant-pain Neurologic: Negative: Dizziness, headache, numbness, tingling Psychiatric: Negative: Anxiety, depression, sleep changes Hematologic/lymphatic: Negative: Bleeding, bruising, enlarged lymph nodes Endocrine: Negative: Excessive sweating, flushing, intolerance to cold, intolerance to heat, weight gain/loss Allergic/immunology: Negative: Pruritus, rash PMFSH - History Attestation statement: The following information was validated with the patient. Source: Old Records Reviewed - Medical History Medical History: Medical History (Last Reviewed 09/05/19 @ 18:16 by Rosie Givens MD) Breast cancer left-treated with surgery, chemo, & radiation H/O: hysterectomy With bilateral oophorectomy from Dr. Hayes in [place] 04/2017. Original pathology showed high-grade cervical dysplasia, no invasive current cervical cancer or endometrial malignancy. History of staph infection Removal of left tissue java user interface developer 11/2015 with left breast latissimus dorsi reconstruction with implant 06/21/2016 Hypothyroidism Osteopenia - Surgical History Surgical History: Surgical History (Last Reviewed 09/05/19 @ 18:16 by Rosie Givens MD) H/O left mastectomy with reconstruction 06/17/2015 History of right breast implant - Family History Family History: Family History (Last Reviewed 09/05/19 @ 18:16 by Rosie Givens MD) Mother Diabetes Son Diabetes Father , age 81 COPD (chronic obstructive pulmonary disease) - Social History Smoking Status: Former smoker Tobacco Type: cigarettes Substance Use Type: None Social History Comments: Works at [employer] since 2014. Former smoker 1ppd/30years.quit 06/2016. First at age 18. 4 para 3, ab 1. Home Medications & Allergies Allergies pegfilgrastim Allergy (Verified 03/07/19 08:22) Hives Home Medications levothyroxine 125 mcg PO QAM 03/07/19 [History Confirmed 09/05/19] anastrozole 1 mg PO QPM 90 Days #90 tab 06/26/19 [Rx Confirmed 09/05/19] Objective - Height/Weight Height/Weight: Height 5 ft 2 in Weight 51.1 kg - Vital Signs Vital Signs: 09/05/19 08:38 Temperature 97.8 F Pulse Rate [Right Brachial] 64 Respiratory Rate 20 Blood Pressure [Right Arm] 113/75 02 Sat by Pulse Oximetry 99 - Emotional Needs Assessment Emotional Needs Assessment: Emotional Needs Identified? No Distress Screening Total 0 - ECOG Performance Status ECOG Score: 0 Physical Exam Narrative: Constitutional: No acute distress, well-nourished, physically fit, alert/oriented x3, cooperative HEENT: Head: Normocephalic, atrophic Eyes: EOMI, PERRL, clear conjunctiva ENT: Moist mucous membrane, oropharynx clear, nares patent Neck: Supple, full range of motion, no cervical/supraclavicular adenopathy Chest/breast/axilla exam: mild left breast discomfort with tenderness, s/p left breast reconstruction, nipple tattoo well-healed with implant in place. Right breast augmentation well healed. Respiratory: No accessory muscle use, anterior and posterior chest clear, no rales, no respiratory distress no rhonchi, no wheeze, room air Cardiovascular: RRR, no murmur, no rubs, no gallop, no peripheral edema Gastrointestinal: Normal active bowel sounds, no tenderness, no distention, no mass, no organomegaly, no bleeding : No hematuria Groin: No inguinal lymphadenopathy Back/spine/pelvis exam: Full range of motion, no tenderness Skin: Intact, dry, warm, normal turgor Neurologic: Alert, oriented x3, cranial nerves II-XII intact, reflexes, moving all extremities, vision grossly intact, hearing grossly intact, normal speech normal gait, no tremors Psychiatric: Normal affect, normal thought process, cooperative Results - Labs Labs: 09/03/2019: Normal electrolytes and renal function, calcium 9.7 Thyroid studies which show a low TSH 0.25 and elevated free T4 1.31 - Impressions Date of Service: 09/03/19 MM/MM screening mammo RT w/CAD: hx of malignant neoplasm of left breast Copies to: NON STAFF MD Deb Goodman, FAST FOOD SHIFT LEAD~ Bilateral Screening Full Field digital mammogram with 3-D imaging. Full field digital CC and MLO imaging performed. CAD utilized. COMPARISON: 07/09/18 HISTORY:Screening FINDINGS: The breast is almost entirely fatty. No developing architectural distortion, developing focal breast asymmetry or developing malignant calcifications identified. RIGHT breast implant is present. MM/MM screening mammo RT w/CAD IMPRESSION:No mammographic evidence of malignancy. Routine follow-up recommended in one year. RESULT CODE: 1 Negative DENSITY CODE: 1 (<25% glandular) FOLLOW UP: 1YR THE FALSE-NEGATIVE RATE OF MAMMOGRAPHY IS APPROXIMATELY 10%. IMAGING OF A PALPABLE ABNORMALITY MUST BE BASED ON CLINICAL GROUNDS. PATIENT WAS ENTERED INTO A REMINDER SYSTEM WITH A TARGET DUE DATE FOR THE NEXT MAMMOGRAM. Impression dictated by: Wagner Espinoza M.D.09/03/2019 9:49 AM DEXA scan performed 09/03/2019: AP spine T score now -2, osteopenia; left femoral neck T score -1.3, osteopenia; right femoral neck T score -1.8, osteopenia. Assessment and Plan (1) Breast cancer of upper-outer quadrant of left female breast Qualifiers: Estrogen receptor status: positive Qualified Code(s): C50.412 - Malignant neoplasm of upper-outer quadrant of left female breast; Z17.0 - Estrogen receptor positive status [ER+] This is a 59-year-old female, who presented with stage I breast cancer 5 years ago and has completed adjuvant chemotherapy, radiation therapy, and tamoxifen/changed to anastrozole therapy ongoing after prior lumpectomy. She was found to have a cluster of malignant cells on biopsy of a small abnormality on mammogram 05/2015. The patient consented to left mastectomy with immediate reconstruction on 06/16/2015, but had postoperative wound infection necessitating removal of her tissue java user interface developer and implant placement has been delayed. Dr. De Los Santos of plastic surgery placed a second tissue java user interface developer at the left mastectomy site, but this was also removed in mid November 2015 for Staph wound infection and she has recovered well. She underwent latissimus dorsi flap which is now well-healed. Most recent revision surgery with Dr. De Los Santos 03/2019. September 2019 exam and mammogram shows no evidence of recurrence. Her therapy and endocrine therapy was switched from tamoxifen to aromatase inhibitor given her early recurrence. She is status post hysterectomy April 2017 for cervical dysplasia and well-healed. She continues to tolerate Arimidex well without hot flashes or myalgias and plan to continue for 5-7 year course. She will followup now annually and right mammogram with implant ordered for 09/2020 prior to f/u. This is a moderate complexity f/u over 30 minutes to review DEXA scan, thyroid studies and mammography. (2) Osteopenia Qualifiers: Laterality: unspecified laterality Baseline bone density test was performed in July 2015 showing mild osteopenia--her most recent DEXA was in September 2019 showing persistent mild osteopenia that is somewhat worse from 2018. Her previous calcium 1200 mg per day with vitamin D 600 international units per day has been on hold by Dr. Asencio due to prior changes in her thyroid function and will review her follow-up per DEXA scan at followup on 09/09/2019. I will defer recommendations for osteopenia management to Dr. Asencio. --Today, the patient was notified that calcium was stabilized. Her next DEXA scan will be due 09/2021. (3) Hypothyroidism Qualifiers: Hypothyroidism type: acquired Qualified Code(s): E03.9 - Hypothyroidism, unspecified She remains on levothyroxine therapy 125 mcg po daily that is managed by Dr. Asencio. Currently TSH is low with high FT4. I would recommend titrating down levothyroxine dose, but she will discuss these recommendations with Dr. Asencio at f/u next week. (4) Encounter for monitoring aromatase inhibitor therapy Tolerating anastrozole 1mg daily for planned 5-7 year course. - Chemo Plan Chemo Plan (Dose, Rate, Freq): Anastrozole 1mg po daily for 5-7 year course Goal of Treatment: Curative - Time with Patient Total Time Spent with Patient: 30 min Coordination of Care & Counseling Time: Greater than 50% of time spent with patient was for coordination of care (as documented) and [id number] counseling of patient and/or family. Dictated By: Rosie Givens MD DD/ [id number] Signed By: <Electronically signed by MD Rosie Givens> 09/05/19 1839 [facility] Work Phone: [phone] Progress note Author Deb Diamond [facility] January 15, 2019 1:17pm Note Date/Time January 15, 2019 1 2:23pm [facility] [place] [address] Hem/Onc Follow Up Note - OP Signed Patient: Gabriella Rodriguez MR#: [id number] : 1960 Acct:[id number] Age/Sex: 58 / F Type: REG RCR Copies to: NON STAFF MD Rosie Dial MD~ Subjective Date/Time of Service: Date of Service: 01/15/2019 Time of Service: 09:45 Chief Complaint: Patient here for routine follow up appointment for history of left breast cancer. Patient continues on Anastrozole with no concerns noted. Last mammogram was on (07/09/18). HPI: Gabriella presented to the clinic for a 6 month follow-up visit for follow-up on breast cancer. She reported, approximately 2 weeks ago she saw Dr. De Los Santos and is awaiting insurance approval for exchange of left breast implant. The patient reported, she has discomfort in the left breast/axillary region but denies any lymphedema, no palpable axillary lymph nodes. The patient goes to the gym on a regular basis. She denies, any nausea, vomiting, diarrhea, constipation, hot flashes, and arthralgia/myalgias. - Summary of Therapies Summary of Therapies: 1. The patient completed four cycles of Taxotere, Cytoxan at full dose between June and August of 2014. 2. She received 42.56 Gy in 16 divided fractions to the whole breast followed by10 Gy boost in 4 divided fractions of radiation therapy from 09/29/2014 through 10/27/2014. 3. The patient started tamoxifen therapy in 10/2014. Her last menstrual period was with her second cycle of chemotherapy in 07/2014 and an estradiol level ordered in 10/2014 was less than 5. No recurrent menses since July 2014. 4. Left mastectomy with immediate reconstruction on 06/17/2015. Removal of tissue java user interface developer due to infection 07/20/2015. 5. Tamoxifen was changed to Arimidex 1 mg daily on 07/02/2015. Patient tolerating well. Will complete 5-7 years of hormonal therapy. 6. Second left tissue java user interface developer removed due to infection 11/16/2015. 7. Left breast Latissimus dorsi reconstruction with implant 06/21/2016. 8. Cervical dysplasia requiring LEEP and underwent hysterectomy with bilateral oophorectomy April 2017, reviewed records from [facility]. 9. Adjuvant hormone therapy Tamoxifen 20 mg daily from 10/2014 to June 2015. Switch from tamoxifen to aromatase inhibitor given her early recurrence. Arimidex 1 mg on July 02, 2015- ROS Details: All systems reviewed & no additional complaints except as documented Subjective/ROS - Narrative: Subjective/ROS-narrative: Constitutional: Negative: No chills, fatigue, fever, night sweats, weakness HEENT: Negative: Blurred vision, headaches, epistaxis, rhinorrhea, sore throat Cardiovascular: Negative: Chest pain, edema, palpitations Respiratory: Negative: Cough, shortness of breath, hemoptysis Gastrointestinal: Negative: pain, bloating, constipation, diarrhea, nausea, vomiting Genitourinary: Negative: Frequency, dysuria, flank pain, hematuria Genitalia: Negative: Discharge, masses, hernia Breasts: Negative: mass, discharge, dimpling positive: left breast/muscle implant-pain Neurologic: Negative: Dizziness, headache, numbness, tingling Psychiatric: Negative: Anxiety, depression, sleep changes Hematologic/lymphatic: Negative: Bleeding, bruising, enlarged lymph nodes Endocrine: Negative: Excessive sweating, flushing, intolerance to cold, intolerance to heat, weight gain/loss Allergic/immunology: Negative: Pruritus, rash PMFSH - History Attestation statement: The following information was validated with the patient. Source: Old Records Reviewed - Medical History Medical History: Medical History (Last Updated 01/15/19 @ 12:55 by Deb Diamond APRN) H/O: hysterectomy With bilateral oophorectomy from Dr. Hayes in [place] 04/2017. Original pathology showed high-grade cervical dysplasia, no invasive current cervical cancer or endometrial malignancy. History of staph infection Removal of left tissue java user interface developer 11/2015 with left breast latissimus dorsi reconstruction with implant 06/21/2016 - Surgical History Surgical History: Surgical History (Last Updated 01/15/19 @ 12:55 by Deb Diamond APRN) H/O left mastectomy with reconstruction 06/17/2015 - Family History Family History: Family History (Last Updated 01/15/19 @ 10:03 by Deb Diamond APRN) Mother Diabetes Son Diabetes Father , age 81 COPD (chronic obstructive pulmonary disease) - Social History Smoking Status: Former smoker Tobacco Type: cigarettes Substance Use Type: None Social History Comments: Works at [employer] since 2014. Former smoker 1ppd/30years.quit 06/2016. First at age 18. 4 para 3, ab 1. Home Medications & Allergies Allergies pegfilgrastim Allergy (Verified 01/19/17 09:09) Hives Home Medications RX: levothyroxine 125 mcg PO DAILY 07/13/17 [History Confirmed 01/15/19] RX: anastrozole 1 mg PO DAILY 90 Days #90 tab 07/02/18 [Rx Confirmed 01/15/19] Objective - Resuscitation Status Resuscitation Status: Full Code - Height/Weight Height/Weight: Height 5 ft 2 in Weight 49.487 kg - Vital Signs Vital Signs: 01/15/19 09:44 Temperature 98.3 F Pulse Rate [Right Brachial] 54 L Respiratory Rate 18 Blood Pressure [Right Arm] 119/74 02 Sat by Pulse Oximetry 98 - Emotional Needs Assessment Emotional Needs Assessment: Emotional Needs Identified? No Distress Screening Total 0 - ECOG Performance Status ECOG Score: 0 Physical Exam Narrative: Constitutional: No acute distress, well-nourished, physically fit, alert/oriented x3, cooperative HEENT: Head: Normocephalic, atrophic Eyes: EOMI, PERRL, clear conjunctiva ENT: Moist mucous membrane, oropharynx clear, nares patent Neck: Supple, full range of motion, no cervical/supraclavicular adenopathy Chest/breast/axilla exam: mild left breast discomfort with tenderness, s/p left breast reconstruction, nipple tattoo well-healed with implant in place. Right breast augmentation well healed. Respiratory: No accessory muscle use, anterior and posterior chest clear, no rales, no respiratory distress no rhonchi, no wheeze, room air Cardiovascular: RRR, no murmur, no rubs, no gallop, no peripheral edema Gastrointestinal: Normal active bowel sounds, no tenderness, no distention, no mass, no organomegaly, no bleeding : No hematuria Groin: No inguinal lymphadenopathy Back/spine/pelvis exam: Full range of motion, no tenderness Skin: Intact, dry, warm, normal turgor Neurologic: Alert, oriented x3, cranial nerves II-XII intact, reflexes, moving all extremities, vision grossly intact, hearing grossly intact, normal speech normal gait, no tremors Psychiatric: Normal affect, normal thought process, cooperative Assessment and Plan (1) Breast cancer of upper-outer quadrant of left female breast Qualifiers: Estrogen receptor status: positive Qualified Code(s): C50.412 - Malignant neoplasm of upper-outer quadrant of left female breast; Z17.0 - Estrogen receptor positive status [ER+] Today, this is a 58-year-old female, who presented with stage I breast cancer 4 years ago and has completed adjuvant chemotherapy, radiation therapy, and tamoxifen/changed to anastrozole therapy ongoing after prior lumpectomy. She was found to have a cluster of malignant cells on biopsy of a small abnormality on mammogram 05/2015. The patient consented to left mastectomy with immediate reconstruction on 06/16/2015, but had postoperative wound infection necessitating removal of her tissue java user interface developer and implant placement has been delayed. Dr. De Los Santos of plastic surgery placed a second tissue java user interface developer at the left mastectomy site, but this was also removed in mid November 2015 for Staph wound infection and she has recovered well. She underwent latissimus dorsi flap which is now well-healed. On July 2018 exam and mammogram shows no evidence of recurrence. She was post menopausal by estradiol level and absence of menses for over 12 months. Her therapy and endocrine therapy was switched from tamoxifen to aromatase inhibitor given her early recurrence. She now is status post hysterectomy April 2017 for cervical dysplasia and well-healed. She continues to tolerate Arimidex well without hot flashes or myalgias and plan to continue for 5-7 year course. Today, she reported, approximately 2 weeks ago she saw Dr. De Los Santos and is awaiting insurance approval for exchange of left breast implant. She will have next right mammogram with implant in July 2019 and this has been ordered. She will follow- up with Dr. Givens in 6 months or sooner if questions or concerns. (2) Osteopenia Qualifiers: Laterality: unspecified laterality Baseline bone density test was performed in July 2015 showing mild osteopenia--her last DEXA was in July 2017 showing persistent mild osteopenia that is slightly worse. Her previous calcium 1200 mg per day with vitamin D 600 international units per day is on hold by Dr. Asencio due to recent changes in her thyroid function and will follow-up per DEXA scan in 1 years. If she has ongoing decline in bone density, we may add bisphosphonate or rank ligand inhibitor therapy. --Today, the patient expressed that her calcium was stabilized but, is not taking any supplemental calcium at this time. Dr. Givens deferred management of her osteopenia to Dr. Asencio. She will follow-up annually with Dr. Manuel next 09/2019. Her next annual DEXA scan is for 07/2019. I told Ms. Rodriguez that based on her last T-score she may need to restart on Calcium or consider Fosamax for her osteopenia. (3) Hypothyroidism Qualifiers: Hypothyroidism type: acquired Qualified Code(s): E03.9 - Hypothyroidism, unspecified She remains on levothyroxine therapy 125 mcg po daily that is managed by Dr. Asencio. - Chemo Plan Goal of Treatment: Curative - Time with Patient Total Time Spent with Patient: 30 min Coordination of Care & Counseling Time: Greater than 50% of time spent with patient was for coordination of care (as documented) and [id number] counseling of patient and/or family. Dictated By: Deb Diamond APRN DD/ 1223 Signed By: <Electronically signed by CONNIE Diamond> 01/15/19 1315 [facility] Work Phone: [phone] Progress note Author Viv Connors [facility] July 12, 2018 3:31pm Note Date/Time July 12, 2018 11: 02am [facility] [place] [address] Rad Onc Follow Up Note - OP Signed Patient: Gabriella Rodriguez MR#: [id number] : 1960 Acct:[id number] Age/Sex: 58 / F Type: REG RCR Copies to: NON STAFF MD Trevor Goodman MD Itzkowitz, Fredric DO~ Subjective - Service Date/Time Date: 07/12/18 Time: 11:01 - Diagnosis 58-year-old female with stage pT1 cpN0 M0, stage Ia hormone receptor positive and HER-2/kate negative invasive ductal carcinoma of the left breast diagnosed in 2014 and she is currently in Arimidex - Chief Complaint I have no complaints - History of Present Illness Patient with stage Ia invasive carcinoma of the upper outer quadrant of the leftbreast status post lumpectomy, adjuvant chemotherapy and radiation therapy treatments in 2014 had recurrent breast disease and underwent left mastectomy and reconstruction in June 2016. Returns today for her annual scheduled follow-up appointment without any complains of lumps, pain, difficulty in swallowing, headache, nausea, arm swelling, abdominal discomfort, urinary or bowel problems, vaginal bleeding or discharge, motor or sensory changes. She remains fairly active and her appetite and weight are stable. No complaints of fever, chills or night sweats. I've closely reviewed the patient's oncologic, medical, surgical, social, and family history. Changes noted above. I also reviewed the patient's medicationsvia reconciliation, as per the nursing record. - Review of Systems ROS: As per HPI. Objective Height 5 ft 2 in Weight 49.4 kg Temp 97.4 F L 07/12/18 09:19 Pulse 65 07/12/18 09:19 Resp 20 07/12/18 09:19 BP 98/64 L 07/12/18 09:19 Pulse Ox 98 07/12/18 09:19 Pain: 0/10 Emotional Needs Assessment: Emotional Needs Identified? No Karnofsky Performance Scale: 100%: Normal, no complaints Physical Exam: Physical examination today shows an alert, oriented, pleasant female who is in no acute distress. HEENT examination did not reveal any cranial neuropathy. No palpable neck lymphadenopathy. Local examination of the left reconstructed breast breast shows excellent cosmetic result. No discrete palpable mass in the left breast or axilla. No lymphedema of the left upper extremity is noted. Right breast and axilla are also without any masses. Her lungs are clear. No spinal or paraspinal tenderness. Cardiac examination is unremarkable. No pelvic or rectal examination was done today. She has no leg edema. She remains neurologically stable including her motor, sensory and cerebellar functions. 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 Assessment & Plan (1) Breast cancer of upper-outer quadrant of left female breast Qualifiers: Estrogen receptor status: positive Qualified Code(s): C50.412 - Malignant neoplasm of upper-outer quadrant of left female breast; Z17.0 - Estrogen receptor positive status [ER+] Plan: Patient is doing remarkably well and has no evidence of clinical recurrence of the left chest wall/reconstructed breast or axilla. She continues on Arimidex as prescribed by Dr. Givens and her mammogram of the right breast on 07/09/2018 was reported unremarkable. She continues to follow-up on a regular basis with Dr. Garcia and Dr. Givens and at this point, I plan to discharge her from radiation oncology clinic and will see her in the future only on an as needed basis. Total Time Spent with Patient: Less than 30 minutes More than 50% of time allotted to patient education, answering questions, and coordinating care. N.B: Voice-recognition software was used in the creation of this note. Efforts were made to detect and correct typographical and/or grammatical errors; please excuse them should you find any. Dictated By: Viv Connors MD DD/ 1101 Signed By: <Electronically signed by Viv Connors MD> 07/12/18 1531 [facility] Work Phone: [phone] Progress note Author Rosie Givens [facility] July 12, 2018 2:21pm Note Date/Time July 12, 2018 9:4 8am [facility] at [address] [address] Hem/Onc Follow Up Note - OP Signed Patient: Gabriella Rodriguez MR#: [id number] : 1960 Acct:[id number] Age/Sex: 58 / F Type: REG RCR Copies to: NON STAFF Kiesha Asencio MD~ Subjective Date/Time of Service: Date of Service: 07/12/2018 Time of Service: 09:47 Chief Complaint: Follow up visit.Currently on Anastrozole,occassional hot flashes. Rt. mammogram 07/09/18. - Diagnosis DIAGNOSIS: 1. 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 The patient underwent left lumpectomy and sentinel lymph node dissection on 05/13/2014; all six sentinel lymph nodes were negative for metastatic cancer. 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 Posterior margin was focally positive with invasive cancer; ER/PRpositive and HER-2 also equivocal on the lumpectomy specimen. 2. Specimen was sent for Oncotype DX testing. This returned showing a recurrentscore of 29 which correlates to a 19%, 10 year risk of distant recurrence in the intermediate risk group on the high end of the scale. The HER-2 score was 9.0, which was negative; therefore, the patient did not receive HER-2 directed therapy. 3. The patient was sent for liver ultrasound due to a questionable density on staging CT. There was no space occupying lesion seen although liver was heterogeneous in texture and consideration of follow-up CT or MRI of the liver was recommended by radiology for interval follow-up. The patient also had a baseline MUGA scan for cardiac function and had normal left ventricular function. 4. Note, the patient was seen the 3rd week of first cycle of chemotherapy where she was noted to have a rash overlying the right hand at the 4th and 5th metacarpals. This was thought to be a mild chemotherapy extravasation. She did not experience any scarring of the area. 5. Her one year followup bilateral mammogram on April 15, 2015 did show scattered fibroglandular densities with trabeculation and skin thickening on theleft related to radiation therapy. There was an area of subtle calcifications just inferior and slightly medial to the lumpectomy site. This could not be excluded as residual DCIS radiating away from the area of prior mass on initial studies February and March 2014. There were no masses or abnormalities of theright breast. Dr. Garcia saw patient and recommended biopsy. This biopsy 04/28/2015 performed at 11:00, 3 cm from the nipple of the left breast showed fragments of breast tissue with a minute 0.3 mm focus of malignant epithelial cells, nuclear grade 2-3. At least ductal carcinoma in situ was likely area there were microcalcifications associated with fibrous stroma and focal fat necrosis. 6. This case was discussed in [facility] cancer conference and the decision was made to perform left mastectomy with immediate reconstruction by Dr. Marcos Garcia and Dr. Trevor De Los Santos on 06/16/2015. She required 2 courses of postoperative antibiotics due to infection. She had removal of her tissue java user interface developer on 07/20/2015 due to recurrent infection. She returned to work after short-term disability on July 14, then laid off due to staffing issues. She initiated anastrozole in June 2015 which she has tolerated well. 7. The patient underwent a second breast reconstruction of the left breast withplacement of tissue java user interface developer on 11/03/2015. 8. Noted on exam 11/05/2015 to have right supraclavicular fullness of unclear etiology. Sent for supraclavicular ultrasound, negative for adenopathy. 9. Removal of left tissue java user interface developer mid November 2015 with antibiotics for Staph infection. 10. 06/21/2016 the patient underwent left breast reconstruction with latissimus dorsi flap. Immediate insertion of implant, excision of scar or left chest. The procedure was tolerated well. She has planned fat transfer procedures and nipple reconstruction but has not had any complications since most recent procedure in October 2016. She recently had nipple tattoo left breast, no issues. 11. She underwent hysterectomy with bilateral oophorectomy from Dr. Hayes in [place] in April 2017. I requested original pathology and it revealed high-grade cervical dysplasia but no invasive current cervical cancer or endometrial malignancy. 12. DEXA scan performed 07/06/2017 reveals stable mild osteopenia with T score - 1.5 lumbar spine, T score -1.2 left femoral neck, T score -1.8 right femoral neck. She saw Dr. Asencio of endocrinology who adjusted her thyroid medication andstopped her calcium as she noted she was in a calcium overload state . He is reevaluating her in March 2018 for possible addition of vitamin D. I am recommending that he follows her stable osteopenia. 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 First at 18. 4, para 3, AB 1. She has not had any hot flashes. She took control pills for several years but never took hormone replacement therapy. Last menstrual period was spring. MEDICATIONS: Previously took tamoxifen 20 mg daily from October 2014 to June 2015, then was changed to Arimidex 1 mg daily on July 02, 2015. She was recently placed on Synthroid 100 ?g daily for hypothyroidism. She no longer requires pain medication from her surgery. Thyroid medication has been adjusted by Dr. Asencio and he recommended holding her calcium for the next 3 months due to relative hypercalcemia on Arimidex. DEXA scan shows mild osteopenia. ALLERGIES: Intolerance of pegfilgrastim from Neulasta causing rash. 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 She is now back to work after her breast reconstruction at [facility] (since 2014). She previously had smoked a pack of cigarettes per day for 30 years and stopped smoking in mid June 2016 with mild weight gain. She does not drink alcohol or use recreational drugs and is enrolled on [place] Medicaid. She is unaccompanied today. HPI: Gabriella is here for six-month follow-up. Stable weight after hysterectomy in April 2017--she put on about 15 pounds and wondered if this could be related to her anastrozole. She returned to Dr. Asencio who adjusted her thyroid medicine and now she has returned to her normal weight. Her energy has also improved and she is without any other complaints. She returned to work (previously laid off). She is status post left latissimus dorsi reconstruction surgery with placement of implant in June 2016. Underwent nipple tattoo left reconstructed breast without complications. She has no significant residual postoperative pain and has not had any erythema or wound complications at the site. She tolerates Arimidex well with mild hot flashes and myalgias. She has not had any vaginal bleeding, but was noted to have cervical dysplasia requiring LEEP, then underwent total abdominal hysterectomy by Dr. Hayes in [place] April 2017 and had high-grade dysplasia but no invasive cancer. - Summary of Therapies Summary of Therapies: 1. The patient completed four cycles of Taxotere, Cytoxan at full dose between June and August of 2014. 2. She received 42.56 Gy in 16 divided fractions to the whole breast followed by10 Gy boost in 4 divided fractions of radiation therapy from 09/29/2014 through 10/27/2014. 3. The patient started tamoxifen therapy in 10/2014. Her last menstrual period was with her second cycle of chemotherapy in 07/2014 and an estradiol level ordered in 10/2014 was less than 5. No recurrent menses since July 2014. 4. Left mastectomy with immediate reconstruction on 06/17/2015. Removal of tissue java user interface developer due to infection 07/20/2015. 5. Tamoxifen was changed to Arimidex 1 mg daily on 07/02/2015. Patient tolerating well. Will complete 5-7 years of hormonal therapy. 6. Second left tissue java user interface developer removed due to infection 11/16/2015. 7. Left breast Latissimus dorsi reconstruction with implant 06/21/2016. 8. Cervical dysplasia requiring LEEP and underwent hysterectomy with bilateral oophorectomy April 2017, reviewed records from [facility]. Subjective/ROS - Narrative: Constitutional: No Chills, No Diaphoresis, No Fatigue, No Fever, No Night Sweats, No Weakness, No Weight Gain (now at baseline weight) Gastrointestinal: No Abdominal Pain, No Black Stool, No Bloating, No Bloody Stool, No Constipation, No Diarrhea, No Nausea, No Vomiting Cardiovascular: No Chest Pain, No Edema, No Palpitations Genitourinary: No Dysuria, No Frequency, No Hematuria, No Incontinence. Cervical dysplasia status post LEEP and status post hysterectomy April 2017, well- healed. Musculoskeletal: No Back Pain, No Chest Wall Tenderness, No Joint Swelling, No Muscle Stiffness, Myalgia (bilateral knees only since initiating anastrozole, not troublesome to patient she is not requiring any pain medication) HEENT: No Blurred Vision, No Discharge, No Ear Pain, No Epistaxis, No Rhinorrhea, No Sore Throat Respiratory: No Cough, No Shortness of Breath, No Sputum Neurological: No Dizziness, No Headache, No Numbness, No Tingling Hematologic/Lymphatic: No Bleeds Easily, No Bruises Easily, No Enlarged Lymph Nodes Endocrine: No Excessive Sweating, Minimal Flushing (hot flashes not troublesometo patient, she does not request medication for this), no Intolerance to Cold, No Intolerance to Heat Psychiatric: No Anxiety, No Depressed Mood (improving since last visit), No Homicidal Ideation, No Insomnia, No Suicidal Ideation Integumentary: No Jaundice, No Lesions, No Rash LEFT Breast: No Changes (s/p mastectomy, latissimus reconstruction healing wellwith implant in place, nipple tattoo) RIGHT Breast: No Changes, No Lump(s), No Nipple Discharge Allergic/Immunology: No Pruritus ROS Details: All systems reviewed & no additional complaints except as documented ONC PMFSH - General Attestation statement: The following information was validated with the patient. Source: Old Records Reviewed - Medical History Medical history: Cancer - left breast cancer, cervical dysplasia, Thyroid Disease - Surgical History Surgical history female: breast surgery - mastectomy reconstruction, hysterectomy - Psych History Psychiatric history: no psych history - Family History Family History: no significant family history - Social History Hx Recreational Drug Use?: No Home Medications & Allergies Allergies Allergy/AdvReac Type Severity Reaction Status Date / Time pegfilgrastim Allergy Hives Verified 01/19/17 09:09 Home Medications Medication Instructions Recorded Confirmed Type levothyroxine 125 mcg PO DAILY 07/13/17 07/12/18 History anastrozole 1 mg PO DAILY 90 Days #90 tab 07/02/18 Rx Objective - Resuscitation Status Resuscitation Status: Full Code - Height/Weight Height/Weight: Height 5 ft 2 in Weight 49.4 kg - Vital Signs Vital Signs: 07/12/18 09:19 Temperature 97.4 F L Pulse Rate [Right Brachial] 65 Respiratory Rate 20 Blood Pressure [Right Arm] 98/64 L 02 Sat by Pulse Oximetry 98 - Emotional Needs Assessment Emotional Needs Assessment: Emotional Needs Identified? No - ECOG Performance Status ECOG Score: 0 Physical Exam - Constitutional no acute distress, average body habitus, no chronically ill appearing, cooperative - Routine HEENT Exam Head: normocephalic, atraumatic, no cushingoid faces Eye: EOMI, PERRL, normal accommodation, no conjunctival injection, no scleral icterus ENT: mucous membranes moist, no oropharynx clear, dentition normal, nares patent, no sinus tenderness - Routine Neck Exam supple, full ROM, no lymphadenopathy, no thyromegaly - Routine Chest/Breast/Axilla Exam Chest wall: no tenderness Breast: no tenderness, no induration, other - Right breast augmentation well- healed, left breast latissimus dorsi reconstruction well-healed with implant in place, nipple tattoo by Dr. De Los Santos. Axillae: no lymphadenopathy, no mass, no tenderness - Routine Respiratory Exam no accessory muscle use, CTA bilaterally, no rales, no respiratory distress, no rhonchi, no wheezes - Routine Cardiovascular Exam RRR, no murmur, no gallop, no irregular rhythm - Routine Abdominal Exam soft, normoactive bowel sounds, no tenderness, no distended, no organomegaly, nomass - Routine Exam Groin: Absent: inguinal lymphadenopathy - Routine Extremities Exam Present: full ROM, pulses intact, normal capillary refill. Absent: cyanosis, clubbing, edema, calf tenderness, tenderness - Routine Back/Spine/Pelvis Exam Back/Spine: Present: full ROM. Absent: CVA tenderness, paraspinal tenderness, vertebral tenderness - Routine Skin Exam Present: intact, dry, warm, normal turgor. Absent: petechiae, urticaria, lesions, jaundice, rash, ecchymosis - Routine Neurological Exam Present: alert, oriented X3, CN II-XII intact, sensory deficit, motor deficit, normal reflexes, moving all extremities, vision grossly intact, hearing grossly intact, normal speech. Absent: abnormal gait, tremors - Routine Psychiatric Exam Present: normal affect, normal thought process, cooperative. Absent: depressed,anxious Results - Labs Labs: No recent labs for review. Thyroid function followed by Dr. Asencio. - Impressions ITS Impressions Mammogram Diagnostic 07/09/18 08:57 IMPRESSION:No mammographic evidence of malignancy. Routine follow-up recommended in one year. RESULT CODE: 2 Benign Findings(s) DENSITY CODE: 2 (approximately 25-50% glandular) FOLLOW UP: 1YR THE FALSE-NEGATIVE RATE OF MAMMOGRAPHY IS APPROXIMATELY 10%. IMAGING OF A PALPABLE ABNORMALITY MUST BE BASED ON CLINICAL GROUNDS. PATIENT WAS ENTERED INTO A REMINDER SYSTEM WITH A TARGET DUE DATE FOR THE NEXT MAMMOGRAM. Impression dictated by: Wagner Espinoza M.D.07/09/2018 9:23 AM Dictation Location: [facility] Any impression(s) listed above is documentation that was entered by the reading physician into a diagnostic report(s) for Gabriella Rodriguez. I have reviewedthe report(s) and am incorporating any findings in the treatment plan of this patient where applicable. Assessment and Plan (1) Breast cancer of upper-outer quadrant of left female breast Qualifiers: Estrogen receptor status: positive Qualified Code(s): C50.412 - Malignant neoplasm of upper-outer quadrant of left female breast; Z17.0 - Estrogen receptor positive status [ER+] This is a 58-year-old female, who presented with stage I breast cancer 4 years ago and has completed adjuvant chemotherapy, radiation therapy, and tamoxifen/changed to anastrozole therapy ongoing after prior lumpectomy. She was found to have a cluster of malignant cells on biopsy of a small abnormality on mammogram 05/2015. The patient consented to left mastectomy with immediate reconstruction on 06/16/2015, but had postoperative wound infection necessitating removal of her tissue java user interface developer and implant placement has been delayed. Dr. De Los Santos of plastic surgery placed a second tissue java user interface developer at the left mastectomy site, but this was also removed in mid November 2015 for Staph wound infection and she has recovered well. She underwent latissimus dorsi flap which is now well-healed. July 2018 exam and mammogram shows no evidence of recurrence. She was post menopausal by estradiol level and absence of menses for over 12 months. Her therapy and endocrine therapy was switched from tamoxifen to aromatase inhibitor given her early recurrence. She now is status post hysterectomy April 2017 for cervical dysplasia and well-healed. She is tolerating Arimidex well without significant hot flashes or myalgias and plan to continue for 5-7 year course. She will have next right mammogram with implant in July 2019. Continue followup every 6 months or sooner prn. This is a low complexity visit over 15 minutes. (2) Osteopenia Qualifiers: Laterality: unspecified laterality Baseline bone density test was performed in July 2015 showing mild osteopenia--her last DEXA was in July 2017 showing persistent mild osteopenia that is slightly worse. Her previous calcium 1200 mg per day with vitamin D 600 international units per day is on hold by Dr. Asencio due to recent changes in her thyroid function and will follow-up per DEXA scan in 1 years. If she has ongoing decline in bone density, we may add bisphosphonate or rank ligand inhibitor therapy. --I will defer management of her osteopenia to Dr. Asencio. (3) Hypothyroidism Qualifiers: Hypothyroidism type: acquired Qualified Code(s): E03.9 - Hypothyroidism, unspecified She remains on levothyroxine therapy that is managed by Dr. Asencio. - Chemo Plan Chemo Plan (Dose, Rate, Freq): Anastrozole 1 mg daily to complete 5-7-year course. Goal of Treatment: Curative - Time with Patient Total Time Spent with Patient: 30 min Coordination of Care & Counseling Time: Greater than 50% of time spent with patient was for coordination of care (as documented) and [id number] counseling of patient and/or family. Dictated By: Rosie Givens MD DD/ [id number] Signed By: <Electronically signed by MD Rosie Givens> 07/12/[address] [place] [address] Work Phone: [phone] Progress note Author Rosie Givens [facility] January 11, 2018 10:11am Note Date/Time January 11, 2018 9 :45am [facility] [place] [address] Hem/Onc Follow Up Note - OP Signed Patient: Gabriella Rodriguez MR#: [id number] : 1960 Acct:[id number] Age/Sex: 57 / F Type: REG RCR Copies to: NON STAFF MD Aram Dial Lisa J ~ Subjective Date/Time of Service: Date of Service: 01/11/2018 Time of Service: 09:43 Chief Complaint: Patient is here for routine follow up history of breast cancer currently on Anastrozole no concerns voiced. - Diagnosis DIAGNOSIS: 1. Invasive ductal carcinoma, 1.1 cm in diameter, nuclear grade 2; estrogen receptor 95%, progesterone receptor 85% and HER-2/ktae equivocal, by IHC staining2+ with subsequent HER-2 CEP-17 ratio 1.2 and HER-2 spot count 4.3, which was also equivocal. The patient underwent lumpectomy and sentinel lymph node dissection on 05/13/2014; all six sentinel lymph nodes were negative for metastatic cancer. 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 Posterior margin was focally positive with invasive cancer; ER/PRpositive and HER-2 also equivocal on the lumpectomy specimen. 2. Specimen was sent for Oncotype DX testing. This returned showing a recurrentscore of 29 which correlates to a 19%, 10 year risk of distant recurrence in the intermediate risk group on the high end of the scale. The HER-2 score was 9.0, which was negative; therefore, the patient did not receive HER-2 directed therapy. 3. The patient was sent for liver ultrasound due to a questionable density on staging CT. There was no space occupying lesion seen although liver was heterogeneous in texture and consideration of follow-up CT or MRI of the liver was recommended by radiology for interval follow-up. The patient also had a baseline MUGA scan for cardiac function and had normal left ventricular function. 4. Note, the patient was seen the 3rd week of first cycle of chemotherapy where she was noted to have a rash overlying the right hand at the 4th and 5th metacarpals. This was thought to be a mild chemotherapy extravasation. She did not experience any scarring of the area. 5. Her one year followup bilateral mammogram on April 15, 2015 did show scattered fibroglandular densities with trabeculation and skin thickening on theleft related to radiation therapy. There was an area of subtle calcifications just inferior and slightly medial to the lumpectomy site. This could not be excluded as residual DCIS radiating away from the area of prior mass on initial studies February and March 2014. There were no masses or abnormalities of theright breast. Dr. Garcia saw patient and recommended biopsy. This biopsy 04/28/2015 performed at 11:00, 3 cm from the nipple of the left breast showed fragments of breast tissue with a minute 0.3 mm focus of malignant epithelial cells, nuclear grade 2-3. At least ductal carcinoma in situ was likely area there were microcalcifications associated with fibrous stroma and focal fat necrosis. 6. This case was discussed in [facility] cancer conference and the decision was made to perform left mastectomy with immediate reconstruction by Dr. Marcos Garcia and Dr. Trevor De Los Santos on 06/16/2015. She required 2 courses of postoperative antibiotics due to infection. She had removal of her tissue java user interface developer on 07/20/2015 due to recurrent infection. She returned to work after short-term disability on July 14, then laid off due to staffing issues. She initiated anastrozole in June 2015 which she has tolerated well. 7. The patient underwent a second breast reconstruction of the left breast withplacement of tissue java user interface developer on 11/03/2015. 8. Noted on exam 11/05/2015 to have right supraclavicular fullness of unclear etiology. Sent for supraclavicular ultrasound, negative for adenopathy. 9. Removal of left tissue java user interface developer mid November 2015 with antibiotics for Staph infection. 10. 06/21/2016 the patient underwent left breast reconstruction with latissimus dorsi flap. Immediate insertion of implant, excision of scar or left chest. The procedure was tolerated well. She has planned fat transfer procedures and nipple reconstruction but has not had any complications since most recent procedure in October 2016. She recently had nipple tattoo left breast, no issues. 11. She underwent hysterectomy with bilateral oophorectomy from Dr. Hayes in [place] in April 2017. I requested original pathology and it revealed high-grade cervical dysplasia but no invasive current cervical cancer or endometrial malignancy. 12. DEXA scan performed 07/06/2017 reveals stable mild osteopenia with T score - 1.5 lumbar spine, T score -1.2 left femoral neck, T score -1.8 right femoral neck. She saw Dr. Asencio of endocrinology who adjusted her thyroid medication and stopped her calcium as she noted she was in a calcium overload state . He is reevaluating her in March 2018 for possible addition of vitamin D. I am recommending that he follows her stable osteopenia. 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 First at 18. 4, para 3, AB 1. She has not had any hot flashes. She took control pills for several years but never took hormone replacement therapy. Last menstrual period was spring. MEDICATIONS: Previously took tamoxifen 20 mg daily from October 2014 to June 2015, then was changed to Arimidex 1 mg daily on July 02, 2015. She was recently placed on Synthroid 100 ?g daily for hypothyroidism. She no longer requires pain medication from her surgery. Thyroid medication has been adjusted by Dr. Asencio and he recommended holding her calcium for the next 3 months due to relative hypercalcemia on Arimidex. DEXA scan shows mild osteopenia. ALLERGIES: Intolerance of pegfilgrastim from Neulasta causing rash. 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 She is now back to work after her breast reconstruction at [employer] (since 2014). She previously had smoked a pack of cigarettes per day for 30 years and stopped smoking in mid June 2016 with mild weight gain. She does not drink alcohol or use recreational drugs and is enrolled on [place] Medicaid. She is unaccompanied today. HPI: Gabriella is here for six-month follow-up. She noticed that after hysterectomy in April 2017 she put on about 15 pounds and wondered if this could be related toher anastrozole. She returned to Dr. Asencio who adjusted her thyroid medicine and now she has returned to her normal weight. Her energy has also improved andshe is without any other complaints. She is status post left latissimus dorsi reconstruction surgery with placement of implant in June 2016. Underwent nipple tattoo left reconstructed breast without complications. She has no significant residual postoperative pain and has not had any erythema or wound complications at the site. She tolerates Arimidex reasonably well with mild hotflashes and myalgias. She has not had any vaginal bleeding, but was noted to have cervical dysplasia requiring LEEP earlier this year and is underwent total abdominal hysterectomy by Dr. Hayes in [place] April 2017 and had high-grade dysplasia but no invasive cancer as noted in diagnoses section above. - Summary of Therapies Summary of Therapies: 1. The patient completed four cycles of Taxotere, Cytoxan at full dose between June and August of 2014. 2. She received 42.56 Gy in 16 divided fractions to the whole breast followed by10 Gy boost in 4 divided fractions of radiation therapy from 09/29/2014 through 10/27/2014. 3. The patient started tamoxifen therapy in 10/2014. Her last menstrual period was with her second cycle of chemotherapy in 07/2014 and an estradiol level ordered in 10/2014 was less than 5. No recurrent menses since July 2014. 4. Left mastectomy with immediate reconstruction on 06/17/2015. Removal of tissue java user interface developer due to infection 07/20/2015. 5. Tamoxifen was changed to Arimidex 1 mg daily on 07/02/2015. Patient tolerating well. 6. Second left tissue java user interface developer removed due to infection 11/16/2015. 7. Left breast Latissimus dorsi reconstruction with implant 06/21/2016. 8. Cervical dysplasia requiring LEEP and underwent hysterectomy with bilateral oophorectomy April 2017, reviewed records from [facility]. Subjective/ROS - Narrative: Constitutional: No Chills, No Diaphoresis, No Fatigue, No Fever, No Night Sweats, No Weakness, No Weight Gain (now at baseline weight) Gastrointestinal: No Abdominal Pain, No Black Stool, No Bloating, No Bloody Stool, No Constipation, No Diarrhea, No Nausea, No Vomiting Cardiovascular: No Chest Pain, No Edema, No Palpitations Genitourinary: No Dysuria, No Frequency, No Hematuria, No Incontinence. Cervical dysplasia status post LEEP and status post hysterectomy April 2017, well- healed. Musculoskeletal: No Back Pain, No Chest Wall Tenderness, No Joint Swelling, No Muscle Stiffness, Myalgia (bilateral knees only since initiating anastrozole, not troublesome to patient she is not requiring any pain medication) HEENT: No Blurred Vision, No Discharge, No Ear Pain, No Epistaxis, No Rhinorrhea, No Sore Throat Respiratory: No Cough, No Shortness of Breath, No Sputum Neurological: No Dizziness, No Headache, No Numbness, No Tingling Hematologic/Lymphatic: No Bleeds Easily, No Bruises Easily, No Enlarged Lymph Nodes Endocrine: No Excessive Sweating, Minimal Flushing (hot flashes not troublesometo patient, she does not request medication for this), no Intolerance to Cold, No Intolerance to Heat Psychiatric: No Anxiety, No Depressed Mood (improving since last visit), No Homicidal Ideation, No Insomnia, No Suicidal Ideation Integumentary: No Jaundice, No Lesions, No Rash LEFT Breast: No Changes (s/p mastectomy, latissimus reconstruction healing wellwith implant in place, nipple tattoo) RIGHT Breast: No Changes, No Lump(s), No Nipple Discharge Allergic/Immunology: No Pruritus ROS Details: All systems reviewed & no additional complaints except as documented ONC PMFSH - Surgical History Surgical history female: breast surgery, hysterectomy - Social History Hx Recreational Drug Use?: No Home Medications & Allergies Allergies Allergy/AdvReac Type Severity Reaction Status Date / Time pegfilgrastim Allergy Hives Verified 01/19/17 09:09 Home Medications Medication Instructions Recorded Confirmed Type cyanocobalamin (vitamin B-12) 1,000 mcg PO DAILY 01/26/17 01/11/18 History [Vitamin B-12] pyridoxine (vitamin B6) [Vitamin 1 cap PO DAILY 01/26/17 01/11/18 History B-6] anastrozole 1 mg PO DAILY #90 tab 07/07/17 01/11/18 Rx levothyroxine 150 mcg PO DAILY 07/13/17 01/11/18 History Objective - Resuscitation Status Resuscitation Status: Full Code - Height/Weight Height/Weight: Height 5 ft 2 in Weight 48.2 kg - Vital Signs Vital Signs: Temp 97.5 F L 01/11/18 09:33 Pulse 59 L 01/11/18 09:33 Resp 18 01/11/18 09:33 BP 97/66 L 01/11/18 09:33 Pulse Ox 98 01/11/18 09:33 - Emotional Needs Assessment Emotional Needs Assessment: Emotional Needs Identified? No Distress Screening Total 0 - ECOG Performance Status ECOG Score: 0 Physical Exam - Constitutional no acute distress, average body habitus, no chronically ill appearing, cooperative - Routine HEENT Exam Head: normocephalic, atraumatic, no cushingoid faces Eye: EOMI, PERRL, normal accommodation, no conjunctival icterus, no scleral injection ENT: mucous membranes moist, no oropharynx clear, dentition normal, nares patent, no sinus tenderness - Routine Neck Exam supple, full ROM, no lymphadenopathy, no thyromegaly - Routine Chest/Breast/Axilla Exam Chest wall: no tenderness Breast: no tenderness, no induration, other - Right breast augmentation well- healed, left breast latissimus dorsi reconstruction well-healed with implant in place, nipple tattoo by Dr. De Los Santos. Axillae: no lymphadenopathy, no mass, no tenderness - Routine Respiratory Exam no accessory muscle use, CTA bilaterally, no rales, no respiratory distress, no rhonchi, no wheezes - Routine Cardiovascular Exam RRR, no murmur, no gallop, no irregular rhythm - Routine Abdominal Exam soft, normoactive bowel sounds, no tenderness, no distended, no organomegaly, nomass - Routine Exam Groin: Absent: inguinal lymphadenopathy - Routine Extremities Exam Present: full ROM, pulses intact, normal capillary refill. Absent: cyanosis, clubbing, edema, calf tenderness, tenderness - Routine Back/Spine/Pelvis Exam Back/Spine: Present: full ROM. Absent: CVA tenderness, paraspinal tenderness, vertebral tenderness - Routine Skin Exam Present: intact, dry, warm, normal turgor. Absent: lesions, jaundice - Routine Neurological Exam Present: alert, oriented X3, CN II-XII intact, sensory deficit, motor deficit, normal reflexes, moving all extremities, normal speech. Absent: abnormal gait, tremors - Routine Psychiatric Exam Present: normal affect, normal thought process, cooperative. Absent: depressed,anxious Results - Impressions Any impression(s) listed above is documentation that was entered by the reading physician into a diagnostic report(s) for Gabriella Rodriguez. I have reviewedthe report(s) and am incorporating any findings in the treatment plan of this patient where applicable. No new imaging for review. Previously reviewed stable osteopenia on DEXA scan July 2017, next due in July 2019. Right mammogram without evidence of recurrent malignancy in July 2017. Orderednext mammogram for July 2018. Assessment and Plan (1) Breast cancer of upper-outer quadrant of left female breast Qualifiers: Estrogen receptor status: positive Qualified Code(s): C50.412 - Malignant neoplasm of upper-outer quadrant of left female breast; Z17.0 - Estrogen receptor positive status [ER+] Status: Chronic This is a 57-year-old female, who presented with stage I breast cancer 3 years ago and has completed adjuvant chemotherapy, radiation therapy, and tamoxifen/changed to anastrozole therapy ongoing after prior lumpectomy. She was found to have a cluster of malignant cells on biopsy of a small abnormality on mammogram 05/2015. The patient consented to left mastectomy with immediate reconstruction on 06/16/2015, but had postoperative wound infection necessitating removal of her tissue java user interface developer and implant placement has been delayed. Dr. De Los Santos of plastic surgery placed a second tissue java user interface developer at the left mastectomy site, but this was also removed in mid November 2015 for Staph wound infection and she has recovered well. She underwent latissimus dorsi flap which is now well-healed. July 2017 mammogram shows no evidence of recurrence. She was post menopausal by estradiol level and absence of menses for over 12 months. Her therapy and endocrine therapy was switched from tamoxifen to aromatase inhibitor given her early recurrence. She now is status post hysterectomy April 2017 for cervical dysplasia and well-healed. She is tolerating Arimidex well without significant hot flashes or myalgias and plan to continue for 5-7 year course. Right mammogram with implant ordered July 2018. Continue followup every 6 months or sooner prn. - Chemo Plan Chemo Plan (Dose, Rate, Freq): Continue Arimidex for minimum of 5 to 7 years Goal of Treatment: Curative - Time Spent with Patient Greater than 50% of time spent with patient was for coordination of care (as documented) and [id number] counseling of patient and/or family. less than 15 minutes Dictated By: Rosie Givens MD DD/ [id number] Signed By: <Electronically signed by Rosie Givens MD> 01/11/[address] [place] [address] Work Phone: [phone] 465-325104-12-2018 Progress note Author Leonel Smith [facility] July 13, 2017 1:00pm Note Date/Time July 13, 2017 9:3 9am [facility] [place] [address] Rad Onc Follow Up Note - OP Signed Patient: Gabriella Rodriguez MR#: [id number] : 1960 Acct:[id number] Age/Sex: 57 / F Type: REG RCR Copies to: NON STAFF Kiesha Asencio MD~ Subjective - Service Date/Time Date: 07/13/17 Time: 09:30 - Diagnosis 57 y.o. woman diagnosed in 2014 with pT1c pN0 M0 Stage IA hormone receptor positive, HER2/kate negative invasive ductal carcinoma status post lumpectomy, sentinel lymph node biopsy, adjuvant chemotherapy and adjuvant whole breast irradiation that concluded on 10/27/2014. Patient developed recurrent disease in 2015, and underwent mastectomy; in June 2016 she underwent left breast reconstruction with immediate implant. Patient takes Arimidex as anti-endocrinetherapy. - Chief Complaint I'm doing well. - History of Present Illness Patient returns in an annual follow-up visit. Since I last saw her a year ago, she underwent breast reconstruction by Dr. De Los Santos in February. She continues to take anastrozole as prescribed, and is tolerating it without major side effects. 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 She denies experiencing no symptoms such as shortness of breath, chest pain, focal weakness, poor appetite, changes in stool or urine, unusual headaches, vision changes, slurred speech, focal weakness, or anything new or unusual. I've closely reviewed the patient's oncologic, medical, surgical, social, and family history. Changes noted above. I also reviewed the patient's medicationsvia reconciliation, as per the nursing record. - Review of Systems ROS: As per HPI. Objective Height 5 ft 2 in Weight 55 kg Last Vital Signs Temp 97.4 F L 01/19/17 09:12 Pulse 58 L 07/13/17 09:10 Resp 18 07/13/17 09:10 BP 104/62 07/13/17 09:10 Pulse Ox 98 07/13/17 09:10 Pain: 0/10 Emotional Needs Assessment: Emotional Needs Identified? No Distress Screening Total 0 Karnofsky Performance Scale: 100%: Normal, no complaints Physical Exam: GEN: Well appearing, in NAD. Alert and fully oriented, answers questions appropriately. HEENT: Normocephalic, atraumatic, PERRLA, EOMI. On inspection of oral cavity andvisible oropharynx, mucous membranes moist, tongue protrudes midline without deviation, uvula elevates symmetrically on phonation, no suspicious lesions or asymmetry. NECK: No palpable adenopathy. LUNGS: Clear to auscultation bilaterally, with good aeration. HEART: Normal rate, regular rhythm, normal S1/S2. ABD: Normoactive bowel sounds, no visceromegaly or masses appreciated. LYMPH: No appreciable adenopathy. EXT: Normal range of motion. No cyanosis/clubbing/edema. NEURO: AOx4, environmental maintenance worker II-XII grossly intact, speech is fluent without dysarthria, gait is normal, muscle power normal in major muscle groups in upper and lower extremities. PSYCH: Affect appropriate for clinical situation. Insight and judgement not impaired. Results Impression: July 2017 bilateral mammogram showed no evidence of malignancy. July 2017 bone densitometry revealed osteopenia. Assessment & Plan (1) Breast cancer of upper-outer quadrant of left female breast Qualifiers: Estrogen receptor status: positive Qualified Code(s): C50.412 - Malignant neoplasm of upper-outer quadrant of left female breast; Z17.0 - Estrogen receptor positive status [ER+] Status: Chronic Plan: -EVELYN. Continue anti-endocrine therapy as prescribed. She should also be on calcium/vitamin D due to existing osteopenia in part secondary to aromatase inhibitors for hormone receptor positive breast cancer, but due to thyroid issues, was told to discontinue calcium/vitamin D. She will revisit this with Dr. Asencio in endocrinology, and suggest taking it no more than 2-3 times a week, if not every day. I recommended she do mild-moderate weight bearing exercises to help with bone strength, and to consider hiring a hop trainer for one session to teach her the proper way to do the exercises. -RTC in one year, or sooner if warranted. In the interim, she will f/u with Dr. Givens and Dr. De Los Santos. -Reviewed the red flag symptoms/signs of be concerning for disease recurrence or progression, and she knows to notify us promptly if these ever occur. N.B: Voice-recognition software was used in the creation of this note. Efforts were made to detect and correct typographical and/or grammatical errors; please excuse them should you find any. Total Time Spent with Patient: Greater than 30 minutes More than 50% of time allotted to patient education, answering questions, and coordinating care. Dictated By: Leonel Cardenas MD DD/ [id number] Signed By: <Electronically signed by Leonel Cardenas MD> 07/13/17 [address] [facility] Work Phone: [phone] Progress note Author Rosie Givens [facility] July 13, 2017 9:50am Note Date/Time July 13, 2017 9:2 5am [facility] at [address] [address] Hem/Onc Follow Up Note - OP Signed Patient: Gabriella Rodriguez MR#: [id number] : 1960 Acct:[id number] Age/Sex: 57 / F Type: REG RCR Copies to: NON STAFF SU HAYES MD Itzkowitz, Fredric DO~ Subjective Date/Time of Service: Date of Service: 07/13/2017 Time of Service: 09:15 Chief Complaint: Patient is here for six month follow up history of breast cancer on Anastrozole tolerating well. Patient had recent mammogram and dexascan, no concerns voiced. - Diagnosis DIAGNOSIS: 1. 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 The patient underwent lumpectomy and sentinel lymph node dissection on 05/13/2014; all six sentinel lymph nodes were negative for metastatic cancer. 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 Posterior margin was focally positive with invasive cancer; ER/PRpositive and HER-2 also equivocal on the lumpectomy specimen. 2. Specimen was sent for Oncotype DX testing. This returned showing a recurrentscore of 29 which correlates to a 19%, 10 year risk of distant recurrence in the intermediate risk group on the high end of the scale. The HER-2 score was 9.0, which was negative; therefore, the patient did not receive HER-2 directed therapy. 3. The patient was sent for liver ultrasound due to a questionable density on staging CT. There was no space occupying lesion seen although liver was heterogeneous in texture and consideration of follow-up CT or MRI of the liver was recommended by radiology for interval follow-up. The patient also had a baseline MUGA scan for cardiac function and had normal left ventricular function. 4. Note, the patient was seen the 3rd week of first cycle of chemotherapy where she was noted to have a rash overlying the right hand at the 4th and 5th metacarpals. This was thought to be a mild chemotherapy extravasation. She did not experience any scarring of the area. 5. Her one year followup bilateral mammogram on April 15, 2015 did show scattered fibroglandular densities with trabeculation and skin thickening on theleft related to radiation therapy. There was an area of subtle calcifications just inferior and slightly medial to the lumpectomy site. This could not be excluded as residual DCIS radiating away from the area of prior mass on initial studies February and March 2014. There were no masses or abnormalities of theright breast. Dr. Garcia saw patient and recommended biopsy. This biopsy 04/28/2015 performed at 11:00, 3 cm from the nipple of the left breast showed fragments of breast tissue with a minute 0.3 mm focus of malignant epithelial cells, nuclear grade 2-3. At least ductal carcinoma in situ was likely area there were microcalcifications associated with fibrous stroma and focal fat necrosis. 6. This case was discussed in [facility] cancer conference and the decision was made to perform left mastectomy with immediate reconstruction by Dr. Marcos Garcia and Dr. Trevor De Los Santos on 06/16/2015. She required 2 courses of postoperative antibiotics due to infection. She had removal of her tissue java user interface developer on 07/20/2015 due to recurrent infection. She returned to work after short-term disability on July 14, then laid off due to staffing issues. She initiated anastrozole in June 2015 which she has tolerated well. 7. The patient underwent a second breast reconstruction of the left breast withplacement of tissue java user interface developer on 11/03/2015. 8. Noted on exam 11/05/2015 to have right supraclavicular fullness of unclear etiology. Sent for supraclavicular ultrasound, negative for adenopathy. 9. Removal of left tissue java user interface developer mid November 2015 with antibiotics for Staph infection. 10. 06/21/2016 the patient underwent left breast reconstruction with latissimus dorsi flap. Immediate insertion of implant, excision of scar or left chest. The procedure was tolerated well. She has planned fat transfer procedures and nipple reconstruction but has not had any complications since most recent procedure in October 2016. She recently had nipple tattoo left breast, no issues. 11. She underwent hysterectomy with bilateral oophorectomy from Dr. Hayes in [place] with no abnormalities. 12. DEXA scan performed 07/06/2017 reveals stable mild osteopenia with T score - 1.5 lumbar spine, T score -1.2 left femoral neck, T score -1.8 right femoral neck. 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 First at 18. 4, para 3, AB 1. She has not had any hot flashes. She took control pills for several years but never took hormone replacement therapy. Last menstrual period was spring. MEDICATIONS: Previously took tamoxifen 20 mg daily from October 2014 to June 2015, then was changed to Arimidex 1 mg daily on July 02, 2015. She was recently placed on Synthroid 100 ?g daily for hypothyroidism. She no longer requires pain medication from her surgery. Thyroid medication has been adjusted by Dr. Asencio and he recommended holding her calcium for the next 3 months due to relative hypercalcemia on Arimidex. DEXA scan shows mild osteopenia. ALLERGIES: Intolerance of pegfilgrastim from Neulasta causing rash. 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 She is now back to work after her breast reconstruction at [facility] (since 2014). She previously had smoked a pack of cigarettes per day for 30 years and stopped smoking in mid June 2016 with mild weight gain. She does not drink alcohol or use recreational drugs and is enrolled on [place] Medicaid. She is unaccompanied today. HPI: Gabriella is here for six-month follow-up without any new complaints. She is concerned that since her hysterectomy in April she is put on about 15 pounds and wonders if this could be related to her anastrozole. She is status post left latissimus dorsi reconstruction surgery with placement of implant in June 2016. Recently had nipple tattoo Left reconstructed breast without complications. She has no significant residual postoperative pain and has not had any erythema or wound complications at the site. She tolerates Arimidex reasonably well with mild hot flashes and myalgias. She has not had any vaginalbleeding, but was noted to have cervical dysplasia requiring LEEP earlier this year and is underwent total abdominal hysterectomy by Dr. Hayes in [place] April 2017 and was reported to have normal pathology. She has resolution of prior constipation. She has noted 10 pound weight gain and wondered if this wasrelated to her Arimidex medication. No other new complaints. - Summary of Therapies Summary of Therapies: 1. The patient completed four cycles of Taxotere, Cytoxan at full dose between June and August of 2014. 2. She received 42.56 Gy in 16 divided fractions to the whole breast followed by10 Gy boost in 4 divided fractions of radiation therapy from 09/29/2014 through 10/27/2014. 3. The patient started tamoxifen therapy in 10/2014. Her last menstrual period was with her second cycle of chemotherapy in 07/2014 and an estradiol level ordered in 10/2014 was less than 5. She has not had recurrent menses since July2014. 4. Left mastectomy with immediate reconstruction on 06/17/2015. Removal of tissue java user interface developer due to infection 07/20/2015. 5. Tamoxifen was changed to Arimidex 1 mg daily on 07/02/2015. Patient tolerating well. 6. Second left tissue java user interface developer removed due to infection 11/16/2015. 7. Left breast Latissimus dorsi reconstruction with implant 06/21/2016. 8. Cervical dysplasia requiring LEEP and underwent hysterectomy with bilateral oophorectomy April 2017, requesting records from [facility] for pathology review.. Subjective/ROS - Narrative: Constitutional: No Chills, No Diaphoresis, No Fatigue, No Fever, No Night Sweats, No Weakness, Weight Gain (about 15 pounds recently) Gastrointestinal: No Abdominal Pain, No Black Stool, No Bloating, No Bloody Stool, No Constipation, No Diarrhea, No Nausea, No Vomiting Cardiovascular: No Chest Pain, No Edema, No Palpitations Genitourinary: No Dysuria, No Frequency, No Hematuria, No Incontinence. Cervical dysplasia status post LEEP and status post hysterectomy April 2017, well- healed. Musculoskeletal: No Back Pain, No Chest Wall Tenderness, No Joint Swelling, No Muscle Stiffness, Myalgia (bilateral knees only since initiating anastrozole, not troublesome to patient she is not requiring any pain medication) HEENT: No Blurred Vision, No Discharge, No Ear Pain, No Epistaxis, No Rhinorrhea, No Sore Throat Respiratory: No Cough, No Shortness of Breath, No Sputum Neurological: No Dizziness, No Headache, No Numbness, No Tingling Hematologic/Lymphatic: No Bleeds Easily, No Bruises Easily, No Enlarged Lymph Nodes Endocrine: No Excessive Sweating, Flushing (hot flashes not troublesome to patient, she does not request medication for this), no Intolerance to Cold, No Intolerance to Heat Psychiatric: No Anxiety, No Depressed Mood (improving since last visit), No Homicidal Ideation, No Insomnia, No Suicidal Ideation Integumentary: No Jaundice, No Lesions, No Rash LEFT Breast: Changes (s/p mastectomy, latissimus reconstruction healing well with implant in place, recent nipple tattoo) RIGHT Breast: No Changes, No Lump(s), No Nipple Discharge Allergic/Immunology: No Pruritus ROS Details: All systems reviewed & no additional complaints except as documented Home Medications & Allergies Allergies Allergy/AdvReac Type Severity Reaction Status Date / Time pegfilgrastim Allergy Hives Verified 01/19/17 09:09 Home Medications Medication Instructions Recorded Confirmed Type cyanocobalamin (vitamin B-12) 1,000 mcg PO DAILY 01/26/17 07/13/17 History [Vitamin B-12] pyridoxine (vitamin B6) [Vitamin 1 cap PO DAILY 01/26/17 07/13/17 History B-6] anastrozole 1 mg PO DAILY #90 tab 07/07/17 Rx levothyroxine 150 mcg PO DAILY 07/13/17 07/13/17 History Objective - Resuscitation Status Resuscitation Status: Full Code - Height/Weight Height/Weight: Height 5 ft 2 in Weight 55 kg - Vital Signs Vital Signs: Last Vital Signs Temp 97.4 F L 01/19/17 09:12 Pulse 58 L 07/13/17 09:10 Resp 18 07/13/17 09:10 BP 104/62 07/13/17 09:10 Pulse Ox 98 07/13/17 09:10 - Emotional Needs Assessment Emotional Needs Assessment: Emotional Needs Identified? No Distress Screening Total 0 - ECOG Performance Status ECOG Score: 0 Physical Exam - Constitutional no acute distress, average body habitus, no chronically ill appearing, cooperative - Routine HEENT Exam Head: normocephalic, atraumatic, no cushingoid faces Eye: EOMI, PERRL, normal accommodation, no conjunctival icterus, no scleral injection ENT: mucous membranes moist, no oropharynx clear, dentition normal, nares patent, no sinus tenderness - Routine Neck Exam supple, full ROM, no lymphadenopathy, no thyromegaly - Routine Chest/Breast/Axilla Exam Chest wall: no tenderness Breast: no tenderness, no induration, other - Right breast augmentation well- healed, left breast latissimus dorsi reconstruction well-healed with implant in place, recent nipple tattoo by Dr. De Los Santos. Axillae: no lymphadenopathy, no mass, no tenderness - Routine Respiratory Exam no accessory muscle use, no respiratory distress - Routine Cardiovascular Exam RRR, no murmur, no gallop, no irregular rhythm - Routine Abdominal Exam soft, normoactive bowel sounds, no tenderness, no distended, no organomegaly, nomass - Routine Exam Groin: Absent: inguinal lymphadenopathy - Routine Extremities Exam Present: full ROM, pulses intact, normal capillary refill. Absent: cyanosis, clubbing, edema, calf tenderness, tenderness - Routine Back/Spine/Pelvis Exam Back/Spine: Present: full ROM. Absent: CVA tenderness, paraspinal tenderness, vertebral tenderness - Routine Skin Exam Present: intact, dry, warm, normal turgor. Absent: lesions, jaundice - Routine Neurological Exam Present: alert, oriented X3, CN II-XII intact, normal reflexes, moving all extremities, normal speech. Absent: abnormal gait - Routine Psychiatric Exam Present: normal affect, normal thought process, cooperative. Absent: depressed,anxious Results - Labs Labs: No recent labs available for review. All thyroid studies and electrolytes followed by Dr. Asencio. - Other Results Results/Comments: CLINICAL DATA: History of left mastectomy and right breast augmentation. RIGHT DIAGNOSTIC MAMMOGRAMS - FULL FIELD DIGITAL WITH TOMOSYNTHESIS AND CAD Routine and implant displacement tomosynthesis craniocaudal and mediolateral oblique views of the right breast were obtained using low-dose digital technique. Comparison is made to prior studies from February 14, 2014 through April 20, 2016. This examination was reviewed with the aid of CAD. There is a new retropectoral silicone implant. This appears intact. It may obscure some breast tissue. There are minor scattered fibroglandular densities. There is a tiny stable retroareolar density. There is an intramammary lymph node. There are no developing masses, typically malignant calcifications or architectural distortion. There has been no significant interval change. IMPRESSION: NO MAMMOGRAPHIC EVIDENCE OF MALIGNANCY. ROUTINE FOLLOW-UP IS RECOMMENDED IN ONE YEAR. RESULT CODE: 2 Benign Findings(s) DENSITY CODE: 2 FOLLOW UP: 1YR The false-negative rate of mammography is approximately 10-percent. Management of a palpable abnormality must be based on clinical grounds. Patient was entered into a reminder system with a target due date for the next mammogram. Transcribed By: REGINE 07/06/17806 Dictated By: Chapis Marti MD 07/06/17 0801 DEXA scan performed 07/06/2017 reveals stable mild osteopenia with T score -1.5 lumbar spine, T score -1.2 left femoral neck, T score -1.8 right femoral neck. Assessment and Plan (1) Breast cancer of upper-outer quadrant of left female breast Qualifiers: Estrogen receptor status: positive Qualified Code(s): C50.412 - Malignant neoplasm of upper-outer quadrant of left female breast; Z17.0 - Estrogen receptor positive status [ER+] Status: Chronic This is a 57-year-old female, who presented with stage I breast cancer 2 1/2 years ago and has completed adjuvant chemotherapy, radiation therapy, and tamoxifen/changed to anastrozole therapy ongoing after prior lumpectomy. She was found to have a cluster of malignant cells on biopsy of a small abnormality on mammogram 05/2015. The patient consented to left mastectomy with immediate reconstruction on 06/16/2015, but had postoperative wound infection necessitating removal of her tissue java user interface developer and implant placement has been delayed. Dr. De Los Santos of plastic surgery placed a second tissue java user interface developer at the left mastectomy site, but this was also removed in mid November 2015 for Staph wound infection and she has recovered well. She underwent latissimus dorsi flap which is now well-healed. July 2017 mammogram shows no evidence of recurrence. She was post menopausal by estradiol level and absence of menses for over 12 months. Her therapy and endocrine therapy was switched from tamoxifen to aromatase inhibitor given her early recurrence. She now is status post hysterectomy 3 months ago for cervical dysplasia and well-healed, we are requesting those records. She is tolerating Arimidex well without significant hot flashes or myalgias and plan to continue for 5-7 year course. Right mammogram with implant ordered April 2017. Continue followup every 6 months or sooner prn. (2) Osteopenia Qualifiers: Laterality: unspecified laterality Status: Chronic Baseline bone density test was performed in July 2015 showing mild osteopenia--today we reviewed July 2017 DEXA scan with persistent mild osteopenia that is slightly worse. her previous calcium 1200 mg per day with vitamin D 600 international units per day is on hold by Dr. Asencio due to recent changes in her thyroid function and will follow-up per DEXA scan in 2 years. If she has ongoing decline in bone density, we may add bisphosphonate or rank ligand inhibitor therapy. (3) Perimenopausal vasomotor symptoms Status: Chronic Managed well on current aromatase inhibitor therapy. No issues. (4) Status post hysterectomy with oophorectomy Status: Chronic We are requesting outside records from Dr. Hayes at [facility] for recent hysterectomy and to review pathology. She was reported to have a prior LEEP for cervical dysplasia and I would like to review her pathology given her previous tamoxifen therapy. This is a 30 minute moderate complexity visit for planned review of outside records. She will follow-up in 6 months or sooner as needed. We discussed calorie tracking and regular exercise for weight loss although patient has a normal BMI. - TNM Staging TNM Staging: Problem Onset Date Breast cancer of upper-outer quadrant of left female breast <Primary> Status: Draft Type T N M Stage Clinical M0 Pathologic T1c N0 IA - Chemo Plan Chemo Plan (Dose, Rate, Freq): Continue Arimidex for minimum of 5 to 7 years Goal of Treatment: Curative - Time Spent with Patient Greater than 50% of time spent with patient was for coordination of care (as documented) and [id number] counseling of patient and/or family. 25 - 35 minutes Dictated By: Rosie Givens MD DD/ Signed By: <Electronically signed by Rosie Givens MD> 07/13/17 4094 [facility] Work Phone: [phone] [phone] Progress note Author Rosie Givens [facility] January 19, 2017 12:55pm Note Date/Time January 19, 2017 9 :25am [facility] at [address] [address] Hem/Onc Follow Up Note - OP Signed Patient: Gabriella Rodriguez MR#: [id number] : 1960 Acct:[id number] Age/Sex: 56 / F Type: REG RCR Copies to: NON STAFF Jurgen Garcia Gregory MD~ Subjective Date/Time of Service: Date of Service: 01/19/2017 Time of Service: 09:23 Chief Complaint: Patient is here for routine follow up for history of breast cancer, no concerns voiced. - Diagnosis DIAGNOSIS: 1. 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 The patient underwent lumpectomy and sentinel lymph node dissection on 05/13/2014; all six sentinel lymph nodes were negative for metastatic cancer. 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 Posterior margin was focally positive with invasive cancer; ER/PRpositive and HER-2 also equivocal on the lumpectomy specimen. 2. Specimen was sent for Oncotype DX testing. This returned showing a recurrentscore of 29 which correlates to a 19%, 10 year risk of distant recurrence in the intermediate risk group on the high end of the scale. The HER-2 score was 9.0, which was negative; therefore, the patient did not receive HER-2 directed therapy. 3. The patient was sent for liver ultrasound due to a questionable density on staging CT. There was no space occupying lesion seen although liver was heterogeneous in texture and consideration of follow-up CT or MRI of the liver was recommended by radiology for interval follow-up. The patient also had a baseline MUGA scan for cardiac function and had normal left ventricular function. 4. Note, the patient was seen the 3rd week of first cycle of chemotherapy where she was noted to have a rash overlying the right hand at the 4th and 5th metacarpals. This was thought to be a mild chemotherapy extravasation. She did not experience any scarring of the area. 5. Her one year followup bilateral mammogram on April 15, 2015 did show scattered fibroglandular densities with trabeculation and skin thickening on theleft related to radiation therapy. There was an area of subtle calcifications just inferior and slightly medial to the lumpectomy site. This could not be excluded as residual DCIS radiating away from the area of prior mass on initial studies February and March 2014. There were no masses or abnormalities of appEatIT breast. Dr. Garcia saw patient and recommended biopsy. This biopsy 04/28/2015 performed at 11:00, 3 cm from the nipple of the left breast showed fragments of breast tissue with a minute 0.3 mm focus of malignant epithelial cells, nuclear grade 2-3. At least ductal carcinoma in situ was likely area there were microcalcifications associated with fibrous stroma and focal fat necrosis. 6. This case was discussed in [facility] cancer conference and the decision was made to perform left mastectomy with immediate reconstruction by Dr. Marcos Garcia and Dr. Trevor De Los Santos on 06/16/2015. She required 2 courses of postoperative antibiotics due to infection. She had removal of her tissue java user interface developer on 07/20/2015 due to recurrent infection. She returned to work after short-term disability on July 14, then laid off due to staffing issues. She initiated anastrozole in June 2015 which she has tolerated well. 7. The patient underwent a second breast reconstruction of the left breast withplacement of tissue java user interface developer on 11/03/2015. 8. Noted on exam 11/05/2015 to have right supraclavicular fullness of unclear etiology. Sent for supraclavicular ultrasound, negative for adenopathy. 9. Removal of left tissue java user interface developer mid November 2015 with antibiotics for Staph infection. 10. 06/21/2016 the patient underwent left breast reconstruction with latissimus dorsi flap. Immediate insertion of implant, excision of scar or left chest. The procedure was tolerated well. She has planned fat transfer procedures and nipple reconstruction but has not had any complications since most recent procedure in October 2016. 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 First at 18. 4, para 3, AB 1. She has not had any hot flashes. She took control pills for several years but never took hormone replacement therapy. Last menstrual period was spring. MEDICATIONS: Previously took tamoxifen 20 mg daily from October 2014 to June 2015, then was changed to Arimidex 1 mg daily on July 02, 2015. She was recently placed on Synthroid 100 ?g daily for hypothyroidism. She no longer requires pain medication from her surgery. ALLERGIES: Intolerance of pegfilgrastim from Neulasta causing rash. 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 She is now back to work after her breast reconstruction at [facility] (since 2014). She previously had smoked a pack of cigarettes per day for 30 years and stopped smoking in mid June 2016 with mild weight gain. She does not drink alcohol or use recreational drugs and is enrolled on [place] Medicaid. She is unaccompanied today. HPI: Gabriella is here for six-month follow-up without any new complaints. She is statuspost left latissimus dorsi reconstruction surgery with placement of implant in June 2016. She has no significant residual postoperative pain and has not had any erythema or wound complications at the site. She tolerates Arimidex reasonably well with mild hot flashes and myalgias. She has not had any vaginalbleeding, but was noted to have cervical dysplasia requiring LEEP earlier this year and is scheduled for a total abdominal hysterectomy by Dr. Hayes in [place] next month. She has resolution of prior constipation. She has noted 10 pound weight gain and wondered if this was related to her Arimidex medication. No other new complaints. - Summary of Therapies Summary of Therapies: 1. The patient completed four cycles of Taxotere, Cytoxan at full dose between June and August of 2014. 2. She received 42.56 Gy in 16 divided fractions to the whole breast followed by10 Gy boost in 4 divided fractions of radiation therapy from 09/29/2014 through 10/27/2014. 3. The patient started tamoxifen therapy in 10/2014. Her last menstrual period was with her second cycle of chemotherapy in 07/2014 and an estradiol level ordered in 10/2014 was less than 5. She has not had recurrent menses since July2014. 4. Left mastectomy with immediate reconstruction on 06/17/2015. Removal of tissue java user interface developer due to infection 07/20/2015. 5. Tamoxifen was changed to Arimidex 1 mg daily on 07/02/2015. Patient tolerating well. 6. Second left tissue java user interface developer removed due to infection 11/16/2015. 7. Left breast Latissimus dorsi reconstruction with implant 06/21/2016. 8. Cervical dysplasia requiring LEEP and scheduled for hysterectomy February 2017. Subjective/ROS - Narrative: Constitutional: No Chills, No Diaphoresis, No Fatigue, No Fever, No Night Sweats, No Weakness, Weight Gain (about 10 pounds recently) Gastrointestinal: No Abdominal Pain, No Black Stool, No Bloating, No Bloody Stool, No Constipation, No Diarrhea, No Nausea, No Vomiting Cardiovascular: No Chest Pain, No Edema, No Palpitations Genitourinary: No Dysuria, No Frequency, No Hematuria, No Incontinence. Cervical dysplasia status post LEEP and planned hysterectomy February 2017. Musculoskeletal: No Back Pain, No Chest Wall Tenderness, No Joint Swelling, No Muscle Stiffness, Myalgia (bilateral knees only since initiating anastrozole, not troublesome to patient she is not requiring any pain medication) HEENT: No Blurred Vision, No Discharge, No Ear Pain, No Epistaxis, No Rhinorrhea, No Sore Throat Respiratory: No Cough, No Shortness of Breath, No Sputum Neurological: No Dizziness, No Headache, No Numbness, No Tingling Hematologic/Lymphatic: No Bleeds Easily, No Bruises Easily, No Enlarged Lymph Nodes Endocrine: No Excessive Sweating, Flushing (hot flashes not troublesome to patient, she does not request medication for this)No Intolerance to Cold, No Intolerance to Heat Psychiatric: No Anxiety, No Depressed Mood (improving since last visit), No Homicidal Ideation, No Insomnia, No Suicidal Ideation Integumentary: No Jaundice, No Lesions, No Rash LEFT Breast: Changes (s/p mastectomy, latissimus reconstruction healing well with implant in place) RIGHT Breast: No Changes (placement of left tissue java user interface developer healing well without new complaints), No Lump(s), No Nipple Discharge Allergic/Immunology: No Pruritus Home Medications & Allergies Allergies Allergy/AdvReac Type Severity Reaction Status Date / Time pegfilgrastim Allergy Hives Verified 01/19/17 09:09 Home Medications Medication Instructions Recorded Confirmed Type anastrozole 1 mg PO DAILY 01/17/17 01/19/17 History calcium carbonate-vitamin D3 1 tab PO BID 01/17/17 01/19/17 History [Caltrate 600 + D] levothyroxine 112 mcg PO DAILY 01/17/17 01/19/17 History multivitamin 1 tab PO DAILY 01/17/17 01/19/17 History vitamin B complex 1 cap PO DAILY 01/17/17 01/19/17 History Objective - Resuscitation Status Resuscitation Status: Full Code - Height/Weight Height/Weight: Height 5 ft 2 in Weight 118 lb 9.739 oz - Vital Signs Vital Signs: Last Vital Signs Temp 97.4 F L 01/19/17 09:12 Pulse 54 L 01/19/17 09:12 Resp 18 01/19/17 09:12 BP 140/80 01/19/17 09:12 Pulse Ox 99 01/19/17 09:12 - Emotional Needs Assessment Emotional Needs Assessment: Emotional Needs Identified? No Distress Screening Total 0 - ECOG Performance Status ECOG Score: 0 Physical Exam - Constitutional no acute distress, average body habitus, no chronically ill appearing, cooperative - Routine HEENT Exam Head: normocephalic, atraumatic, no cushingoid faces Eye: EOMI, PERRL, normal accommodation, no conjunctival icterus, no scleral injection ENT: mucous membranes moist, no oropharynx clear, dentition normal, nares patent, no sinus tenderness - Routine Neck Exam supple, full ROM, no lymphadenopathy, no thyromegaly - Routine Chest/Breast/Axilla Exam Chest wall: no tenderness Breast: no tenderness, no induration, other - Right breast augmentation well- healed, left breast latissimus dorsi reconstruction well-healed with implant in place. Axillae: no lymphadenopathy, no mass, no tenderness - Routine Respiratory Exam no accessory muscle use, no respiratory distress - Routine Cardiovascular Exam RRR, no murmur, no gallop, no irregular rhythm - Routine Abdominal Exam soft, normoactive bowel sounds, no tenderness, no distended, no organomegaly, nomass - Routine Exam Groin: Absent: inguinal lymphadenopathy - Routine Extremities Exam Present: full ROM, pulses intact, normal capillary refill. Absent: cyanosis, clubbing, edema, calf tenderness, tenderness - Routine Back/Spine/Pelvis Exam Back/Spine: Present: full ROM. Absent: CVA tenderness, paraspinal tenderness, vertebral tenderness - Routine Skin Exam Present: intact, dry, warm, normal turgor. Absent: lesions, jaundice - Routine Neurological Exam Present: alert, oriented X3, CN II-XII intact, normal reflexes, moving all extremities, normal speech. Absent: abnormal gait - Routine Psychiatric Exam Present: normal affect, normal thought process, cooperative. Absent: depressed,anxious Results - Labs Labs: No new laboratories for review. - Other Results Results/Comments: No new imaging for review. Ordered Mammogram for April 2017 and DEXA for July 2017. Assessment and Plan (1) Breast cancer of upper-outer quadrant of left female breast Qualifiers: Estrogen receptor status: positive Qualified Code(s): C50.412 - Malignant neoplasm of upper-outer quadrant of left female breast; Z17.0 - Estrogen receptor positive status [ER+]; Z17.0 - Estrogen receptor positive status [ER+] Status: Chronic This is a 56-year-old female, who presented with stage I breast cancer 2 years ago and has completed adjuvant chemotherapy, radiation therapy, and tamoxifen therapy after prior lumpectomy. She was found to have a cluster of malignant cells on biopsy of a small abnormality on mammogram 05/2015. The patient consented to left mastectomy with immediate reconstruction on 06/16/2015, but had postoperative wound infection necessitating removal of her tissue java user interface developer and implant placement has been delayed. Dr. De Los Santos of plastic surgery placed a second tissue java user interface developer at the left mastectomy site, but this was also removed in mid November 2015 for Staph wound infection and she has recovered well. She underwent latissimus dorsi flap one month ago which is now well-healed. April mammogram shows no evidence of recurrence. On clinical exam 11/05/2015 there was a nontender area of fullness in the medial right supraclavicular area. Ultrasound of the right supraclavicular area revealed no evidence of adenopathy. This was not palpated on exam today. She is now post menopausal by estradiol level and absence of menses for over 12 months. Her therapy and endocrine therapy was switched from tamoxifen to aromatase inhibitor given her early recurrence. There is no indication for chemotherapy due to such a small recurrent lesion. She is tolerating Arimidex well without significant hot flashes or myalgias and plan to continue for 5 year course. Right mammogram with implant ordered April 2017. Continue followup every 6 months or sooner prn. (2) Osteopenia Qualifiers: Laterality: unspecified laterality Status: Chronic Baseline bone density test was performed in July 2015 showing mild osteopenia--ordered July 2017 DEXA scan. We'll continue calcium 1200 mg per day with vitamin D 600 international units per day and will follow-up per DEXA scan in 2 years. If she has ongoing decline in bone density, we may add bisphosphonate or rank ligand inhibitor therapy. (3) Perimenopausal vasomotor symptoms Status: Chronic Managed well on current aromatase inhibitor therapy. No issues. - Chemo Plan Chemo Plan (Dose, Rate, Freq): Arimidex 1 mg daily for 5 years Goal of Treatment: Curative - Time Spent with Patient Greater than 50% of time spent with patient was for coordination of care (as documented) and awrj-ru-eori counseling of patient and/or family. 25 - 35 minutes Dictated By: Rosie Givens MD DD/ 0923 Signed By: <Electronically signed by MD Rosie Givens> 01/19/17 1254 [facility] Work Phone: Evaluation noteNo assessment information available [facility] Work Phone: Evaluation note* Diagnosis Onset Date Resolution Status Breast cancer of upper-outer quadrant of left female breast chronic Encounter for monitoring aromatase inhibitor therapy chronic Hypothyroidism chronic Osteopenia chronic Status post hysterectomy with oophorectomy chronic [facility] Work Phone: Summary Purpose Family History No Family History Records Found Relationship Condition Age at Onset Recorded Date/T truong Not Specified Diabetes mellitus Unknown natural son Diabetes mellitus Unknown father Chronic obstructive pulmonary disease Unk nown Advance Directives No Advanced Directives Records Found Advance Directive Response Recorded Date/ Time Advance Directives No January 16, 2017 12:54pm Chief Complaint and Reason for Visit Chief Complaint BREAST CANCER Reason for Visit Breast cancer of upp er-outer quadrant of left female breast Encounter for monitoring aromatase inhibitor therapy Hypothyroidism Osteopenia Status post hysterectomy with oophorectomy Chief Complaint Z48.817 z85.3 Chief Complaint z85.3 Additional Source Comments INFORMATION SOURCE (unrecogn ized section and content) DATE CREATED AUTHOR 08/02/2018 [facility] [place] DATE CREATED AUTHOR AUTHOR'S ORGANIZ ATION 01/10/2021 [facility] DATE CREATED AUTHOR AUTHOR'S ORGANIZ ATION 04/14/2022 [facility] DATE CREATED AUTHOR AUTHOR'S ORGANIZ ATION 12/03/2022 [facility] Goals (unrecognized section and content) Goals may be documented in a n alternate sectionGoals may be documented in an alternate sectionNo InformationGoals may be documented in an alternate sectionGoals may be documented in an alternate sectionGoals may be documented in an alternate section Care Teams (unrecognized sec tion and content) Team Status: Active Member Role Status Dates NON STAFF Primary Care Provider Active Rosie Givens MD Attending Provider, Other Provider Acti ve Team Status: Active Member Role Status Dates Deb Light Aram Primary Care Provider Active Team Status: Inactive Member Role Status Dates Deb Kuldeep Chiu Primary Care Provider Active JOSEP Qureshi Attending Provider Active Team Status: Inactive Member Role Status Dates Deb Chiu Primary Care Provider Active Jurgen Garcia DO Attending Provider Active Kiesha Asencio MD Other Provider Active REASON FOR VISIT (unrecogniz ed section and content) RED CAR, COUGH, SINUS CONGES TION, H/A FOR RECORDS PERTAINING TO PATIENTS WHO ARE OR HAVE BEEN ENROLLED IN A CHEMICAL DEPENDENCY/SUBSTANCEABUSE PROGRAM, SOME INFORMATION MAY BE OMITTED. This clinical summary was aggregated from multiple sources. Caution should be exercised in using it in the provision of clinical care. This summary normalizes information from multiple sources, and as a consequence, information in this document may materially change the coding, format and clinical context of patient data. In addition, data may be omitted in some cases. CLINICAL DECISIONS SHOULD BE BASED ON THE PRIMARY CLINICAL RECORDS. [facility] [employer] provides no warranty or guarantee of the accuracy or completeness of information in this document.
[2023-04-08 12:51] LABS: Anion Gap 12.9; BUN Creatinine Ratio 23.5; Calcium 9.3 mg/dL (8.5-10.1); Carbon Dioxide 25.3 mmol/L (21.0-32.0); Chloride 102 mmol/L (98-107); Estimated GFR (African America >60 (>=60); Estimated GFR (Non-African Ame >60 (>=60); Glucose 109 mg/dL (74-106); Potassium 4.2 mmol/L (3.5-5.1); Sodium 136 mmol/L (136-145)
[2023-04-08 15:35] LABS: Free T4 1.06 ng/dL (0.76-1.46)
== END 2023-04-08 09:26 | disposition home or self-care (01) ==
LOC: LAB 09:27
PROVIDERS: PCP Nurse Practitioner; Visit Provider Internal Medicine
DX: E55.9 Vitamin D deficiency, unspecified (principal); E06.3 Autoimmune thyroiditis
CPT/HCPCS: 36415; 80048; 82306; 84439; 84443; 84481

== ENCOUNTER 2023-11-08 15:05 | Outpatient (OUT) | payer BC, SELFPAY ==
--- NOTE | 2023-11-08 15:07 | XR_ITS ---
The [address] [address] Patient Name: MILLICENT HAGEN MRN: [id number] date: 1960 Sex: F Assigned Patient Location: [facility] Current Patient Location: Accession/Order Number: [id number] Exam Date: 11/08/2023 15:14 Report Date: 11/09/2023 05:39 At the request of: NATALYA JAIMES Procedure: XR DEXA axial skeleton EXAMINATION: XR DEXA axial skeleton HISTORY: Osteopenia, Post Mesopause COMPARISON: No relevant comparison available. TECHNIQUE: Dual-energy X-ray absorptiometry (DXA) was performed. FINDINGS: SPINE ANALYSIS: Average bone mineral density is 0.997 g/cm2. T-score (standard deviation relative to young adult mean): -1.5 . HIP ANALYSIS: Lowest bone mineral density is within the right femoral neck, 0.766 g/cm2. T-score (standard deviation relative to young adult mean): -2.0 . XR/XR DEXA axial skeleton IMPRESSION: World Health Organization Classification: Osteopenia - Moderate Fracture Risk FRAX: Cannot be calculated. Pharmacologic treatment recommendations * No uniform recommendation applies to all patients. Management plans must be individualized. * Consider initiating pharmacologic treatment in postmenopausal women and men >= 50 years of age who have the following: Primary fracture prevention: * T-score <= - 2.5 at the femoral neck, total hip, lumbar spine, 33% radius (some uncertainty with existing data) by DXA. * Low bone mass (osteopenia: T-score between - 1.0 and - 2.5) at the femoral neck or total hip by DXA with a 10-year hip fracture risk >= 3% or a 10-year major osteoporosis-related fracture risk >= 20% (i.e., clinical vertebral, hip, forearm, or proximal humerus) based on the [place]-adapted FRAXregistered model. Secondary fracture prevention: * Fracture of the hip or vertebra regardless of BMD [4, 5]. * Fracture of proximal humerus, pelvis, or distal forearm in persons with low bone mass (osteopenia: T-score between - 1.0 and - 2.5). The decision to treat should be individualized in persons with a fracture of the proximal humerus, pelvis, or distal forearm who do not have osteopenia or low BMD [12, 13]. Karson MS, Sha SL, Qasim KL, Robbi EM, Ada KG, AJ, Jennifer ES. The clinician's guide to prevention and treatment of osteoporosis. Osteoporos Int. 2021;33(10):8582-8233. doi: 10.1007/m57929-084-34419-n. Epub 2021Jul 29. Erratum in: Osteoporos Int. 2021Oct 28;: PMID: [id number]; PMCID: [id number]. Electronically authenticated by: ROBERT GREEN Date: 11/09/2023 05:39
== END 2023-11-08 15:06 | disposition home or self-care (01) ==
LOC: RAD 15:05
PROVIDERS: PCP Nurse Practitioner; Visit Provider Nurse Practitioner
DX: Z00.00 Encounter for general adult medical examination without abnormal findings (principal); M85.80 Other specified disorders of bone density and structure, unspecified site; Z78.0 Asymptomatic menopausal state
CPT/HCPCS: 77080

== ENCOUNTER 2023-11-16 15:13 | Outpatient (OUT) | payer BC, SELFPAY ==
[2023-11-16 15:28] LABS: Bilirubin Urine NEGATIVE (NEGATIVE); Blood Urine SMALL (NEGATIVE); Clarity Urine CLEAR (CLEAR); Color Urine LT. YELLOW (YELLOW); Glucose Urine UA NEGATIVE (NEGATIVE); Ketones Urine NEGATIVE (NEGATIVE); Leukocyte Esterase Urine TRACE (NEGATIVE); Nitrite Urine NEGATIVE (NEGATIVE); Protein Urine NEGATIVE (NEG/TRACE); Urobilinogen Urine 0.2 EU/dL (0.2-1.0)
[2023-11-16 15:29] LABS: Basophils Percent Auto 0.6 % (0.2-2.0); Eosinophils Absolute Auto 0.1 10^3/uL (0.0-0.7); Eosinophils Percent Auto 2.3 % (0.9-7.0); Hematocrit 39.4 % (36.0-48.0); Hemoglobin 13.1 g/dL (12.0-16.0); Immature Granulocytes Abs Auto 0.01 10^3/uL (0.00-0.03); Immature Granulocytes Pct Auto 0.2 % (0.0-0.5); Lymphocytes Absolute Auto 1.8 10^3/uL (1.2-3.8); Lymphocytes Percent Auto 38.7 % (20.5-60.0); Mean Corpuscular HGB Conc 33.2 g/dL (29.9-35.2); Mean Corpuscular Hemoglobin 30.9 pg (26.7-34.0); Mean Corpuscular Volume 92.9 fL (81.0-99.0); Mean Platelet Volume 10.3 fL (9.5-13.5); Monocytes Absolute Auto 0.3 10^3/uL (0.3-0.8); Monocytes Percent Auto 6.9 % (1.7-12.0); Neutrophils Absolute Auto 2.4 10^3/uL (1.4-6.5); Neutrophils Percent Auto 51.3 % (43.0-75.0); Platelet Count 183 10^3/uL (150-450); Red Blood Count 4.24 10^6/uL (4.20-5.40); White Blood Count 4.8 10^3/uL (4.0-11.0)
[2023-11-16 15:30] LABS: Urine Microscopic Indicated YES
--- OUTSIDE RECORDS SUMMARY | 2023-11-16 15:33 | XMS_ITS | CCD ---
Author Organization [facility] CliniSyfl Care Team Providers Care Application Development Consultant Name Role Phone Rosie Givens Attending Unavailable Rosie Givens Attending Unavailable VIV CONNORS Attending Unavailable NON STAFF Primary Care Provider UnavailMD Rosie Vargas Attending Provider MD Rosie Givens Other Provider Kenzie Lin Unavailable ELIF, AHMAD Admitting Unavailable ELIF, AHMAD Attending Unavailable AICHHOLZ, RESOLUTION REP DEB Primary Care Unavailable ELIF, AHMAD Consulting Unavailable ELIF, AHMAD Admitting Unavailable ELIF, AHMAD Attending Unavailable AICHHOLZ, RESOLUTION REP DEB Primary Care Unavailable ELIF, AHMAD Consulting Unavailable AICHHOLZ, RESOLUTION REP DEB Admitting Unavailable AICHHOLZ, RESOLUTION REP DEB Attending Unavailable AICHHOLZ, RESOLUTION REP DEB Primary Care Unavailable AICHHOLZ, RESOLUTION REP DEB Consulting Unavailable AICHHOLZ, RESOLUTION REP DEB Admitting Unavailable AICHHOLZ, RESOLUTION REP DEB Attending Unavailable AICHHOLZ, RESOLUTION REP DEB Primary Care Unavailable DR RAYSHAWN CASTANON V Consulting Unavailable AICHHOLZ, RESOLUTION REP DEB Consulting Unavailable Aichholz, Deb J Primary Care Provider [phone] JOSEP Crain Attending Provider DO Jurgen Chapin Attending Provider MD Kiesha Natarajan Other Provider Deb Chiu Primary Care Provider JURGEN CHAPIN Attending Unavailable AICHHOLZ, DEB Attending Unavailable Aram Deb J Primary Care Provider DO Jurgen Chapin Attending Provider Deb Chiu Primary Care Unavailable Jurgen Chapin Attending Unavailable Jurgen Chapin Admitting Unavailable Allergies Allergy Classification Reported Allergen(s) Allergy Type Date of Onset Reaction(s) Facility (7 sources) pegfilgrastim; Translations: [pegfilgrastim] Drug Allergy 10-14-[address] [facility] (1 source) pegfilgrastim Drug Allergy 04-22-2016 [facility] Repository Medications Current Medications Medication Drug Class(es) Dates Sig (Normalized) Sig (Original) Calcitrate (1 source) Calcitrate Activ e levothyroxine sodium 0.125 mg oral tablet (19 sources) l-Thyroxine Start: 03-07-2019 take 100 ug [...] / HYDROcodone bitartrate 5 mg oral tablet (12 sources) Opioid Agonist Start: 03-28-2019 End: 09-05-2019 take 1 tablet by mouth every four to six hours Hydrocodone-Acetami nophen (Merna) 5-325 mg tablet Discontinued 1 TAB PO EVERY 4-6 HOURS 40 March 28, 2019 September 05, 2019 8:37am Start: 02-09-2017 End: 07-13-2017 take 2 tablets by mouth every four to six hours Hydrocodone-Acetaminophen (Merna) 5-325 mg tablet Discontinued 2 TAB PO [...] mg / cholecalciferol 800 unt chewable tablet (6 sources) Vitamin D Start: 01-17-2017 End: 07-13-2017 Calcium Carbonate-Vitamin D3 (Caltrate 600 + D) 600 mg (1,500 mg)-800 unit Tablet,Chewable Discontinued 1 TAB PO Twice daily January 17, 2017 12:00am July 13, 2017 9:09am Multivitamin preparation (6 sources) Start: 01-17-2017 End: 07-13-2017 take 1 tablet by mouth once daily Multivitamin Discontinued 1 TAB PO Daily January 17, 2017 12:29pm July 13, 2017 9:09am Start: 01-17-2017 End: 07-13-2017 take 1 tablet by mouth once daily Multivitamin Discontinued 1 TAB PO Daily January 17, 2017 12:00am July 13, 2017 9:09am Vitamin B Complex (6 sources) Start: 01-17-2017 End: 01-26-2017 take 1 capsule by mouth once daily Vitamin B Complex Discontinued 1 CAP PO Daily January 17, 2017 12:29pm January 26, 2017 1:43pm Start: 01-17-2017 End: 01-26-2017 take 1 capsule by mouth once daily Vitamin B Complex Discontinued 1 CAP PO Daily January 17, 2017 12:00am January 26, 2017 1:43pm vitamin b12 1 mg oral tablet (6 sources) Vitamin B12 Start: 01-26-2017 End: 07-12-2018 take 1 tablet by mouth once daily Cyanocobalamin (Vitamin B-12) (Vitamin B-12) 1,000 mcg Tablet Discontinued 1000 MCG PO Daily January 26, 2017 12:00am July 12, 2018 9:17am vitamin b6 50 mg oral capsule (6 sources) Start: 01-26-2017 End: 07-12-2018 take 1 capsule by mouth once daily Pyridoxine (Vitamin B6) (Vitamin B-6) 50 mg Capsule Discontinued 1 CAP PO Daily January 26, 2017 12:00am July 12, 2018 9:17am Problems Active Problems Problem Classification Problem Date Documented Da te Episodic/Chronic Cancer of breast (8 sources) Malignant neoplasm of upper-outer quadrant of female breast; Translations: [Malignant neoplasm of upper-outer quadrant of left female breast] 01-15-2019 Chronic Cancer of breast (1 source) Personal history of primary malignant neoplasm of breast; Translations: [Personal history of malignant neoplasm of breast] Episodic Complications of surgical procedures or medical care (6 sources) Seroma of breast as complication of procedure; Translations: [Infected postoperative breast seroma] 01-15-2019 Episodic Menopausal disorders (6 sources) Menopausal flushing; Translations: [Menopausal and female climacteric states] 01-15-2019 Chronic Mood disorders (6 sources) Depressive disorder; Translations: [Depression] 01-15-2019 Chronic [...] [Encounter for therapeutic drug monitoring] Episodic Other aftercare (1 source) Long-term current use of drug therapy; Translations: [Encounter for therapeutic drug level monitoring] 09-05-2019 Episodic Other bone disease and musculoskeletal deformities (6 sources) Osteopenia; Translations: [Other specified disorders of [...] Hypercalcemia; Translations: [HYPERCALCEMIA] Onset: 04-13-2022 Chronic Other screening for suspected conditions (not mental disorders or infectious disease) (1 source) Encounter for screening mammogram for malignant neoplasm of breast; Translations: [Encounter for screening mammogram for malignant neoplasm of breast] Onset: 11-13-2023 Episodic Other upper respiratory disease (1 source) Nasal [...] left breast and nipple] Episodic Thyroid disorders (13 sources) Hypothyroidism; Translations: [Hypothyroidism, unspecified] Onset: 04-23-2021 07-12-2018 Chronic Unclassified (1 source) COUGH, UNSPECIFIED; Translations: [COUGH, UNSPECIFIED] Onset: 04-01-2022 Unclassified (3 sources) CONTACT W/AND (SUSP) EXPOS COVID-19; Translations: [CONTACT W/AND (SUSP) EXPOS COVID-19] Onset: 04-28-2021 Past or Other Problems Problem Classification Problem Date Documented Da te Episodic/Chronic Other upper respiratory disease (1 source) Nasal congestion Onset: 10-29-2021 Resolved: 10-29-2021 Episodic Unclassified (1 source) CONTACT W/AND (SUSP) EXPOS COVID-19; Translations: [CONTACT W/AND (SUSP) EXPOS COVID-19] Onset: 04-27-2021 Viral infection (1 source) COVID-19 Onset: 10-29-2021 Resolved: 10-29-2021 Results Test Name Value Interpretation Reference Range Facility MM screening mammo RT w/CADo n 11-13-2023 MM screening mammo RT w/CAD [facility] [place] [address] Mammography Report Signed Patient: Gabriella Doyle MR#: [id number] : 1960 Acct:[id number] Age/Sex: 63 / F ADM Date: 11/13/23 Loc: [place] Room: Type: [facility] Attending Dr: Jurgen Chapin DO Copies to: DO Deb Acevedo NP-C Ordering Provider: Jurgen Chapin DO Date of Service: 11/13/23 MM/MM screening mammo RT w/CAD: Yrly mamm CLINICAL DATA: Screening for malignancy. Previous left mastectomy and right breast augmentation. RIGHT SCREENING MAMMOGRAMS - FULL FIELD DIGITAL WITH TOMOSYNTHESIS AND CAD Routine and implant displacement tomosynthesis craniocaudal and mediolateral oblique views of the right breast were obtained using low-dose digital technique. Comparison is made to prior studies from September 03, 2020 through November 13, 2023 . This examination was reviewed with the aid of CAD. There is a retropectoral silicone implant. This could obscure breast tissue. The breast parenchyma has been largely replaced by fat. There are no developing masses, typically malignant [...] next mammogram. Impression dictated by: Chapis Marti M.D.11/13/2023 4:15 PM Dictation Location: [facility] Transcribed By: REGINE 11/13/23 1615 Dictated By: Chapis Marti MD 11/13/23 161 Signed By: 11/13/23 1615 Normal [facility] Thyrotropin [Units/volume] i n Serum or PlasmaOrdered By: Kiesha Natarajan on 10-07-2022 TSH Qn 0.32 m[IU]/L 0.45-5.33 [facility] Thyroxine (T4) free [Mass/vo lume] in Serum or PlasmaOrdered By: Kiesha Natarajan on 10-07-2022 Free T4 [Mass/Vol] 1.13 ng/dL 0.61-1.12 [facility] Triiodothyronine (T3) Free [ Mass/volume] in Serum or PlasmaOrdered By: Kiesha Natarajan on 10-07-2022 Free T3 [Mass/Vol] 3.42 pg/mL 2.50-3.90 [facility] Bacteria identified Aer cx N om (Unsp spec)Ordered By: Zoila Crain on 07-12-2022 Superficial Wound Culture Pseudomonas aeruginosa [facility] Superficial Wound Culture Serratia marcescens [facility] FREE T3on 04-09-2022 FREE T3 1.90 pg/mlL Critically low 2.18-3.98 [facility] Comment on above: Performed By: #### F T3, BMP, TSH #### [facility] [address] [address] [address] Miles Velez FREE T4on 04-09-2022 Free T4 [Mass/Vol] 0.87 ng/dL Normal 0.76-1.46 [facility] Comment on above: Performed By: #### F T4, VITAD #### [facility] [address] [address] [address] Miles Velez PROF CHEM 8 (BAS METB)on Anion gap [Moles/Vol] 13.8 mmol/L Normal [facility] Comment on above: Performed By: #### F T3, BMP, TSH #### [facility] [address] [address] [address] Miles Velez Calcium [Mass/Vol] 9.5 mg/dL Normal 8.5-10.1 [facility] Comment on above: Performed By: #### F T3, BMP, TSH #### [facility] [address] [address] [address] Miles Velez Chloride [Moles/Vol] 101 mmol/L Normal 98-107 [facility] Comment on above: Performed By: #### F T3, BMP, TSH #### [facility] [address] [address] [address] Miles Velez CO2 [Moles/Vol] 31.8 mmol/L Normal 21.0-32.0 [facility] Comment on above: Performed By: #### F T3, BMP, TSH #### [facility] [address] [address] [address] Miles Velez Creatinine [Mass/Vol] 0.85 mg/dL Normal 0.55-1.02 [facility] Comment on above: Performed By: #### F T3, BMP, TSH #### [facility] [address] [address] [address] Miles Velez EGFR-AF MALIAN >60 Normal >=60 [facility] Comment on above: Performed By: #### F T3, BMP, TSH #### [facility] [address] [address] [address] Miles Velez EGFR-NON AF MALIAN >60 Normal >=60 [facility] Comment on above: Performed By: #### F T3, BMP, TSH #### [facility] [address] [address] [address] Miles Velez Glucose [Mass/Vol] 97 mg/dL Normal 74-106 [facility] Comment on above: Performed By: #### F T3, BMP, TSH #### [facility] [address] [address] [address] Miles Velez Potassium [Moles/Vol] 4.6 mmol/L Normal 3.5-5.1 [facility] Comment on above: Performed By: #### F T3, BMP, TSH #### [facility] [address] [place] [address] Dr. Miles Velez Sodium [Moles/Vol] 142 mmol/L Normal 136-145 [facility] Comment on above: Performed By: #### F T3, BMP, TSH #### [facility] [address] [place] [address] Dr. Miles Velez Urea nitrogen [Mass/Vol] 22.0 mg/dL Critically high 7.0-18.0 [facility] Comment on above: Performed By: #### F T3, BMP, TSH #### [facility] [address] [place] [address] Dr. Miles Velez Urea nitrogen/Creatinine [Mass ratio] 25.9 mg/mg Normal [facility] Comment on above: Performed By: #### F T3, BMP, TSH #### [facility] [address] [place] [address] Dr. Miles Velez TSHon 04-09-2022 TSH 18.326 uIU/mL Critically high 0.358-3.740 [facility] Comment on above: Performed By: #### F T3, BMP, TSH #### [facility] [address], [place] [address] Dr. Miles Velez VITAMIN D 25 OHon 04-09-2022 VIT D 25-OH 49.5 ng/mL Normal [facility] Comment on above: Performed By: #### F T3, BMP, TSH #### [facility] [address] [place], [place] [address] Dr. Miles Velez VIT D RANGES SEE BELOW Normal [facility] Comment on above: Result Comment: <20 ng/mL Vit D deficient 20 - <30 ng/mL Vit D insufficient 30 - 100 ng/mL Vit D sufficient >100 ng/mL Potential Toxicity Performed By: #### F T3, BMP, TSH #### [facility] [id number] Miles Velez XR RIBS RT PA Donna XR RIBS RT PA CH EXAMINATION: XR RIBS RT PA CH HISTORY: Pleuritic pain COMPARISON: No relevant comparison available. FINDINGS: RIBS: No acute rib fracture LUNGS: Linear opacities in the right lung base, atelectasis or scar is favored OTHER: Negative. IMPRESSION: No acute rib fracture Electronically authenticated by: RAYSHAWN CASTANON Date: 2022-03-29 13:59 Normal [facility] SARS-CoV-2 (COVID-19) RNA NA A+probe Ql (Resp)on 10-29-2021 SARS-CoV-2 (COVID-19) RNA EARLE+probe Ql (Unsp spec) Positive [facility] Other Covid-19 PCR (CVDTB)on 04-04 SARS-CoV-2 (COVID-19) RNA EARLE+probe Ql (Unsp spec) Not detected Normal NOT DETECTED [facility] Comment on above: Result Comment: This test is not yet approved or cleared by the [place] FDA. When there are no FDA-approved or cleared tests available, and other criteria are met, FDA can make tests available under an emergency access mechanism called an Emergency Use Authorization (EUA). The EUA for this test is supported by the Returned Goods Repairer of Health and Human Service's (HHS's) declaration [...] By: #### F T3, BMP, TSH #### [facility] [address] [place] [address] Dr. Miles Velez FREE T3on 04-23-2021 FREE T3 2.47 pg/mlL Critically low 2.77-5.27 [facility] Comment on above: Performed By: #### F T3, BMP, TSH #### [facility] [address] [place] [address] Dr. Miles Velez FREE T4on 04-23-2021 Free T4 [Mass/Vol] 1.13 ng/dL Normal 0.78-2.19 [facility] Comment on above: Performed By: #### F T4, VITAD #### [facility] [address] [place] [address] Dr. Miles Velez PROF CHEM 8 (BAS METB)on Anion gap [Moles/Vol] 12.3 mmol/L Normal [facility] Comment on above: Performed By: #### F T3, BMP, TSH #### [facility] [address] [place] [address] Dr. Miles Velez Calcium [Mass/Vol] 9.0 mg/dL Normal 8.4-10.2 [facility] Comment on above: Performed By: #### F T3, BMP, TSH #### [facility] [address] [place] [address] Dr. Miles Velez Chloride [Moles/Vol] 101 mmol/L Normal 98-107 [facility] Comment on above: Performed By: #### F T3, BMP, TSH #### [facility] [address] [place] [address] Dr. Miles Velez CO2 [Moles/Vol] 27.5 mmol/L Normal 22.0-30.0 [facility] Comment on above: Performed By: #### F T3, BMP, TSH #### [facility] [address] [address] [address] Miles Velez Creatinine [Mass/Vol] 0.64 mg/dL Normal 0.52-1.04 [facility] Comment on above: Performed By: #### F T3, BMP, TSH #### [facility] [address] [address] [address] Miles Velez EGFR-AF MALIAN >60 Normal >=60 [facility] Comment on above: Performed By: #### F T3, BMP, TSH #### [facility] [address] [address] [address] Miles Velez EGFR-NON AF MALIAN >60 Normal >=60 [facility] Comment on above: Performed By: #### F T3, BMP, TSH #### [facility] [address] [address] [address] Miles Velez Glucose [Mass/Vol] 83 mg/dL Normal 74-106 [facility] Comment on above: Performed By: #### F T3, BMP, TSH #### [facility] [address] [address] [address] Miles Velez Potassium [Moles/Vol] 3.8 mmol/L Normal 3.4-5.0 [facility] Comment on above: Performed By: #### F T3, BMP, TSH #### [facility] [address] [address] [address] Miles Velez Sodium [Moles/Vol] 137 mmol/L Normal 137-145 [facility] Comment on above: Performed By: #### F T3, BMP, TSH #### [facility] [address] [address] [address] Miles Velez Urea nitrogen [Mass/Vol] 26.0 mg/dL Critically high 7.0-17.0 [facility] Comment on above: Performed By: #### F T3, BMP, TSH #### [facility] [address] [address] [address] Miles Velez Urea nitrogen/Creatinine [Mass ratio] 40.6 mg/mg Normal [facility] Comment on above: Performed By: #### F T3, BMP, TSH #### [facility] [address] [address] [address] Miles Velez TSHon 04-23-2021 TSH 1.621 uIU/mL Normal 0.470-4.680 [facility] Comment on above: Performed By: #### F T3, BMP, TSH #### [facility] [address] [address] [address] Miles Velez TSH RANGE SEE BELOW Normal [facility] Comment on above: Result Comment: <0.3 4 UIU/ml HYPERTHYROID 0.34-5.60 UIU/ml EUTHYROID >5.60 UIU/ml HYPOTHYROID Performed By: #### F T3, BMP, TSH #### [facility] [address] [address] [address] Miles Velez VITAMIN D 25 OHon 04-23-2021 VIT D 25-OH 56.9 ng/mL Normal [facility] Comment on above: Performed By: #### F T4, VITAD #### [facility] [address] [place] [address] Dr. Miles Velez VIT D RANGES SEE BELOW Normal [facility] Comment on above: Result Comment: <20 ng/mL Vit D deficient 20 - <30 ng/mL Vit D insufficient 30 - 100 ng/mL Vit D sufficient >100 ng/mL Potential Toxicity Performed By: #### F T4, VITAD #### [facility] [address] [place] [address] Dr. Miles Velez Consent for COVID Vaccineon 07-26-2020 SARS-CoV-2 (COVID-19) RNA EARLE+probe Ql (Unsp spec) [id number]#1.00CD:127 Normal [facility] Consent for COVID Vaccineon 06-26-2020 SARS-CoV-2 (COVID-19) RNA EARLE+probe Ql (Unsp spec) [id number]#1.00CD:127 [facility] Consent for Treatmenton 06-02 Consent for Treatment [id number]#1.00CD:127 [facility] Coding Summary.on 06-24-2020 Coding Summary. CODING DATE: 06/24/2020 FINAL [facility] STATUS: PAYOR: Medicaid EAPG DESCRIPTION 0999 UNASSIGNED ADMIT DX: REASON FOR VISIT DX: Z23 Encounter for immunization FINAL DX: PRINCIPAL: Z23 Encounter for immunization SECONDARY: PYMT PROC EAPG STAT DESCRIPTION DOCTOR NAME DATE NOTE: The code number assigned matches the documented diagnosis and / or procedure in the patient's chart. However, the narrative phrase printed from the coding software may appear abbreviated, or result in slightly different terminology. Coded By: Kate Yeboah Date Saved: 06/24/2020 02:39 pm [facility] Vital Signs Date Time Vital Sign Value Performing Clinician Facility 10-29-2021 10:50-0400 Body height 157.48 cm Kenzie Lin Other [facility] Other 10-29-2021 10:50-0400 Body mass index (BMI) [Ratio] 21.58 kg/m2 Kenzie Lin Other [facility] Other 10-29-2021 10:50-0400 Body temperature 96.4 [degF] Kenzie Lin Other [facility] Other 10-29-2021 10:50-0400 Body weight 53.52 kg Kenzie Lin Other [facility] Other 10-29-2021 10:50-0400 Respiratory rate 18 /min Kenzie Lin Other [facility] Other 10-29-2021 10:50-0400 SaO2% (BldA) [Mass fraction] 97 % Kenzie Lin Other [facility] Other 10-15-2021 15:43-0400 Body temperature 97.8 [degF] [facility] 10-15-2021 15:43-0400 Body weight 54.43 kg [facility] 10-15-2021 15:43-0400 Diastolic blood pressure 72 mm[Hg] [facility] 10-15-2021 15:43-0400 Heart rate 68 /min [facility] 10-15-2021 15:43-0400 Respiratory rate 16 /min [facility] 10-15-2021 15:43-0400 SaO2% (BldA) [Mass fraction] 97 % [facility] 10-15-2021 15:43-0400 Systolic blood pressure 107 mm[Hg] [facility] 10-14-2020 15:37-0400 Body height 157.48 cm [facility] Encounters Encounter Date Encounter Type Care Provider Facility Start: 11-13-2023 End: 11-13-2023 Patient encounter procedure Deb Chiu Work Phone: [facility] Work Phone: Start: 11-13-2023 End: 11-13-2023 ambulatory Deb Kuldeep Chiu Work Phone: [facility] Work Phone: Start: 11-02-2023 End: 11-02-2023 ambulatory DEB BRYONZ Not Available Start: 10-23-2023 End: 10-23-2023 ambulatory JURGEN CHAPIN Not Available Start: 10-07-2022 End: 10-07-2022 ambulatory Deb J Aichholz Work Phone: [facility] Work Phone: Start: 10-07-2022 End: 10-07-2022 Patient encounter procedure Deb Bryonz Work Phone: [facility] Work Phone: Start: 07-12-2022 End: 07-12-2022 ambulatory Deb Chiu Work Phone: [facility] Work Phone: Start: 07-12-2022 End: 07-12-2022 Departed Referred Deb Chiu Work Phone: [facility] [place] Work Phone: Start: 04-09-2022 End: 04-10-2022 ambulatory AHMAD ELIF Facility:[facility] Start: 03-29-2022 End: 03-30-2022 ambulatory RESOLUTION REP DEB CHIU Facility:[facility] Start: 10-29-2021 End: 10-29-2021 ambulatory Kenzie Lin Other [facility] Other Start: 10-29-2021 Office outpatient vi sit 25 minutes Kenzie Lin [facility] Start: 10-15-2021 End: 10-15-2021 Registered [facility]ring [facility] Start: 04-27-2021 End: 04-27-2021 ambulatory RESOLUTION REP DEB CHIU Facility:[facility] Start: 04-23-2021 End: 04-24-2021 ambulatory AHMAD ELIF Facility:[facility] Start: 07-12-2018 Patient encounter procedure Rosie Givens Facility:[id number] Start: 01-11-2018 Patient encounter procedure Rosie Daya Chon Facility:[id number] Start: 04-17-2017 Hypersensitivity finding Kenzie Lin Other [facility] Other Procedures Date Procedure Procedure Detail Performing Clinician Start: 11-13-2023 Screening mammography of right breast Deb Chiu Work Phone: Start: 10-07-2022 Mammography of right breast Deb Romanojuanymykel Work Phone: Start: 07-12-2022 Aerobic microbial culture [...] 07-12-2022 Superficial Wound Culture Superficial Wound Culture [facility] Payers Date Payer Category Payer Self-pay [id number] 2023 Unknown [id number] 1960 Unknown [id number] 2.16. [id number] 1960 Unknown [id number] 2.16. [id number] 1960 Unknown [id number] 2.16. [id number] 1960 Unknown [id number] 2.16.84 [id number] 1960 Unknown [id number] 2.16.84 [id number] 1960 Unknown [id number] 2.16.84 [id number] 1960 Unknown [id number] 2.16.84 [id number] 1960 Unknown [id number] 2.16.84 [id number] 1960 Unknown [id number] 2.16.84 [id number] 1959 Unknown [id number] Medicaid [employer] [id number] Unknown [facility] [id number] Unknown [id number] 2.16.8 [id number] Social History Date Type Detail Facility Tobacco smoking stat [facility] Unknown if ever smoked [facility] Work Phone: Start: 1960 Sex Assigned At Female [facility] Start: 10-15-2021 Tobacco smoking stat [facility] Ex-smoker (finding) [facility] End: 05-27-2015 History of tobacco use [facility] Work Phone: Medical Equipment Procedure Code Equipment Code Equipment Origin al Text Equipment Identifier Dates Reconstruction, breast and nipple, TRAM flap, liposuction Silicone gel-filled breast implant, smooth-surface ([id number] FDA Start: 03-28-2019 Reconstruction, breast and nipple, TRAM flap, liposuction FLEXHD [id number] 0.8-1.7MM FDA Start: 02-09-2017 Reconstruction, breast and nipple, TRAM flap, liposuction FLEXHD [id number] 0.8-1.7MM FDA Start: 02-09-2017 Reconstruction, breast and nipple, TRAM flap, liposuction FLEXHD [id number] 0.8-1.7MM FDA Start: 02-09-2017 Reconstruction, breast and nipple, TRAM flap, liposuction FLEXHD [id number] 0.8-1.7MM FDA Start: 02-09-2017 Reconstruction, breast and nipple, TRAM flap, liposuction FLEXHD [id number] 0.8-1.7MM FDA Start: 02-09-2017 Reconstruction, breast and nipple, TRAM flap, liposuction FLEXHD [id number] 0.8-1.7MM FDA Start: 02-09-2017 Clinical Notes 01-19-2017 [...] treatment plan. Patient left in stable condition Brain in Hand Other 07-17-2022 Progress note Author Rosie Givens [facility] October 17, 2021 1:53pm Note Date/Time October 15, 2021 3:53 pm [facility] [place] [address] Hem/Onc Follow Up Note - OP Signed Patient: Gabriella Rodriguez MR#: [id number] : 1960 Acct:[id number] Age/Sex: 61 / F Type: REG RCR [...] with elevated FT4--addressed at f/u with Dr. Natarajan on 09/09/2019. Now on additional Vit D, [...] masses or abnormalities of theright breast. Dr. Chapin saw patient and recommended biopsy. This biopsy [...] necrosis. 6. This case was discussed in [facility] cancer conference and the decision was made to perform left mastectomy with immediate reconstruction by Dr. Marcos Chapin and Dr. Trevor De Los Santos on 06/16/2015. She required 2 courses of postoperative antibiotics due to infection. 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 She returned to work after short-term disability on July 14, then laid off due to staffing issues. She initiated anastrozole in June 2015 which she has tolerated well. 7. The patient underwent a second breast reconstruction of the left breast withplacement of tissue automotive lube technician on 11/03/2015. 8. Noted on exam 11/05/2015 to have right supraclavicular fullness of unclear etiology. Sent for supraclavicular ultrasound, negative for adenopathy. 9. Removal of left tissue automotive lube technician mid November 2015 with antibiotics for Staph [...] with bilateral oophorectomy from Dr. Hayes in [place] in April 2017. I requested original pathology and it revealed high-grade cervical dysplasia but no invasive current cervical cancer or endometrial malignancy. 12. DEXA scan performed 07/06/2017 reveals stable mild osteopenia with T score - 1.5 lumbar spine, T score -1.2 left femoral neck, T score -1.8 right femoral neck. She saw Dr. Natarajan of endocrinology who adjusted her thyroid medication [...] does not take calcium due to Dr. Natarajan recommending notto take additional Caltrate from increased calcium. Follow-up with him on 09/09/2019 and we will also review her thyroid studies which show a low TSH 0.25 and elevated free T4 1.31 (I presume he will recommend decreasing her levothyroxine back to 100 mcg daily). --DEXA reviewed from 10/06/2021: I will defer management of her osteopenia to . 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 First at [...] Thyroid medication has been adjusted by Dr. Natarajan and he recommended holding her calcium for the next 3 months due to relative hypercalcemia on Arimidex. DEXA scan previously showed mild osteopenia. ALLERGIES: Intolerance of pegfilgrastim from Neulasta causing rash. SOCIAL HISTORY: She returned to work after her breast reconstruction at [employer] (since 2014), recently was off work due to COVID-19 pandemic but returned to work yesterday. She previously had smoked a pack of cigarettes per day for 30 years and stopped smoking in mid June 2016 with mild weight gain. She does not drink alcohol or use recreational drugs and is enrolled on [place] Medicaid. She is unaccompanied today. - Summary [...] immediate reconstruction on 06/17/2015. Removal of tissue automotive lube technician due to infection 07/20/2015. 5. Tamoxifen was changed to Arimidex 1 mg daily on 07/02/2015. Patient tolerating well. Will complete 5-7 years of hormonal therapy. 6. Second left tissue automotive lube technician removed due to infection 11/16/2015. 7. Left breast Latissimus dorsi reconstruction with implant 06/21/2016. 8. Cervical dysplasia requiring LEEP and underwent hysterectomy with bilateral oophorectomy April 2017, reviewed records from [facility]. 9. Adjuvant hormone therapy Tamoxifen 20 mg [...] of staph infection Removal of left tissue automotive lube technician 11/2015 with left breast latissimus dorsi reconstruction with implant 06/21/2016 Hypothyroidism Osteopenia - Surgical History Surgical History: Surgical History (Last Reviewed 10/17/21 @ 13:48 by Rosie Givens MD) H/O left mastectomy with reconstruction 06/17/2015 H/O: hysterectomy With bilateral oophorectomy from Dr. Hayes in [place] 04/2017. Original pathology showed high-grade cervical dysplasia, [...] Type: None Social History Comments: Works at [employer] since 2014. Former smoker 1ppd/30years.quit 06/2016. First [...] wound infection necessitating removal of her tissue automotive lube technician and implant placement has been delayed. Dr. De Los Santos of plastic surgery placed a second tissue automotive lube technician at the left mastectomy site, but this [...] day has been on hold by Dr. Natarajan due to prior changes in her thyroid function and stable findings on DEXA scan reviewed at followup on 09/09/2019. I will defer recommendations for osteopenia management to Dr. Natarajan. --09/2019: calcium was stabilized. Her next DEXA scan will be due 09/2021. --10/2021: 2 year DEXA scan reviewed, osteopenia stable. Continue f/u with primary care and endocrinology. (3) Hypothyroidism Qualifiers: Hypothyroidism type: acquired Qualified Code(s): E03.9 - Hypothyroidism, unspecified She remains on levothyroxine therapy 125 mcg po daily that is managed by Dr. Natarajan. (4) Encounter for monitoring aromatase inhibitor therapy [...] for coordination of care (as documented) and ejor-xd-plyy counseling of patient and/or family. Dictated By: Rosie Givens MD DD/ 1553 Signed By: <Electronically signed by MD Rosie Givens> 10/17/21 [facility] Work Phone: 1(126) 572-632002-15-2022 History general Narrative - Reported* Type Description Date Medical History Breast cancer L Medical History Hypothyroidism Surgical History Lumpectomy 05/18 Surgical History Breast recon 2016 Surgical History marilia procedure 04/2016 Surgical History reconstruction 06/2016 Surgical History left mastectomy 06/2015 Hospitalization History see above Brain in Hand Other 07-14-2021 Progress note Author Rosie Givens [facility] October 14, 2020 9:23pm Note Date/Time October 14, 2020 4:19 pm [facility] [place] [id number] Hem/Onc Follow Up Note - OP Signed Patient: Gabriella Rodriguez MR#: [id number] : 1960 Acct:[id number] Age/Sex: 60 / F Type: REG RCR [...] elevated FT4--will address at f/u with Dr. Natarajan on 09/09/2019. Now on additional Vit D, [...] masses or abnormalities of theright breast. Dr. Chapin saw patient and recommended biopsy. This biopsy [...] necrosis. 6. This case was discussed in [facility] cancer conference and the decision was made to perform left mastectomy with immediate reconstruction by Dr. Marcos Chapin and Dr. Trevor De Los Santos on 06/16/2015. She required 2 courses of postoperative antibiotics due to infection. 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 She returned to work after short-term disability on July 14, then laid off due to staffing issues. She initiated anastrozole in June 2015 which she has tolerated well. 7. The patient underwent a second breast reconstruction of the left breast withplacement of tissue automotive lube technician on 11/03/2015. 8. Noted on exam 11/05/2015 to have right supraclavicular fullness of unclear etiology. Sent for supraclavicular ultrasound, negative for adenopathy. 9. Removal of left tissue automotive lube technician mid November 2015 with antibiotics for Staph [...] with bilateral oophorectomy from Dr. Hayes in [place] in April 2017. I requested original pathology and it revealed high-grade cervical dysplasia but no invasive current cervical cancer or endometrial malignancy. 12. DEXA scan performed 07/06/2017 reveals stable mild osteopenia with T score - 1.5 lumbar spine, T score -1.2 left femoral neck, T score -1.8 right femoral neck. She saw Dr. Natarajan of endocrinology who adjusted her thyroid medication [...] does not take calcium due to Dr. Natarajan recommending notto take additional Caltrate from increased calcium. She has follow-up with him on 09/09/2019 and we will also review her thyroid studies which show a low TSH 0.25 and elevated free T4 1.31 (I presume he will recommend decreasing her levothyroxine back to 100 mcg daily). I will defer management of her osteopeniato Dr. Natarajan. 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 First at [...] Thyroid medication has been adjusted by Dr. Natarajan and he recommended holding her calcium for the next 3 months due to relative hypercalcemia on Arimidex. DEXA scan previously showed mild osteopenia. ALLERGIES: Intolerance of pegfilgrastim from Neulasta causing rash. SOCIAL HISTORY: She returned to work after her breast reconstruction at [employer] (since 2014), recently was off work due to COVID-19 pandemic but returned to work yesterday. She previously had smoked a pack of cigarettes per day for 30 years and stopped smoking in mid June 2016 with mild weight gain. She does not drink alcohol or use recreational drugs and is enrolled on [place] Medicaid. She is unaccompanied today. - Summary [...] immediate reconstruction on 06/17/2015. Removal of tissue automotive lube technician due to infection 07/20/2015. 5. Tamoxifen was changed to Arimidex 1 mg daily on 07/02/2015. Patient tolerating well. Will complete 5-7 years of hormonal therapy. 6. Second left tissue automotive lube technician removed due to infection 11/16/2015. 7. Left breast Latissimus dorsi reconstruction with implant 06/21/2016. 8. Cervical dysplasia requiring LEEP and underwent hysterectomy with bilateral oophorectomy April 2017, reviewed records from [facility]. 9. Adjuvant hormone therapy Tamoxifen 20 mg [...] of staph infection Removal of left tissue automotive lube technician 11/2015 with left breast latissimus dorsi reconstruction with implant 06/21/2016 Hypothyroidism Osteopenia - Surgical History Surgical History: Surgical History (Last Reviewed 10/14/20 @ 21:13 by Rosie Givens MD) H/O left mastectomy with reconstruction 06/17/2015 H/O: hysterectomy With bilateral oophorectomy from Dr. Hayes in [place] 04/2017. Original pathology showed high-grade cervical dysplasia, [...] Type: None Social History Comments: Works at [employer] since 2014. Former smoker 1ppd/30years.quit 06/2016. First [...] wound infection necessitating removal of her tissue automotive lube technician and implant placement has been delayed. Dr. De Los Santos of plastic surgery placed a second tissue automotive lube technician at the left mastectomy site, but this [...] day has been on hold by Dr. Natarajan due to prior changes in her thyroid function and stable findings on DEXA scan reviewed at followup on 09/09/2019. I will defer recommendations for osteopenia management to Dr. Natarajan. --09/2019: calcium was stabilized. Her next DEXA scan will be due 09/2021. (3) Hypothyroidism Qualifiers: Hypothyroidism type: acquired Qualified Code(s): E03.9 - Hypothyroidism, unspecified She remains on levothyroxine therapy 100 mcg po daily that is managed by Dr. Natarajan. (4) Encounter for monitoring aromatase inhibitor therapy [...] for coordination of care (as documented) and olcz-nc-opay counseling of patient and/or family. Dictated By: Rosie Givens MD DD/ 1541 Signed By: <Electronically signed by MD Rosie Givens> 10/14/20 [address] [facility] Work Phone: 1(768) 496-475106-04-2020 Progress note Author Rosie Givens [facility] September 05, 2019 6:31pm Note Date/Time September 05, 2019 8:45a m [facility] [place] [address] Hem/Onc Follow Up Note - OP Signed Patient: Gabriella Rodriguez MR#: [id number] : 1960 Acct:[id number] Age/Sex: 59 / F Type: REG RCR [...] elevated FT4--will address at f/u with Dr. Natarajan on 09/09/2019. --Now 5 years from diagnosis, [...] lymph nodes were negative for metastatic cancer. [place] histologic score was 8, which is high [...] masses or abnormalities of theright breast. Dr. Chapin saw patient and recommended biopsy. This biopsy [...] necrosis. 6. This case was discussed in [facility] cancer conference and the decision was made to perform left mastectomy with immediate reconstruction by Dr. Marcos Chapin and Dr. Trevor De Los Santos on 06/16/2015. She required 2 courses of postoperative antibiotics due to infection. 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 She returned to work after short-term disability on July 14, then laid off due to staffing issues. She initiated anastrozole in June 2015 which she has tolerated well. 7. The patient underwent a second breast reconstruction of the left breast withplacement of tissue automotive lube technician on 11/03/2015. 8. Noted on exam 11/05/2015 to have right supraclavicular fullness of unclear etiology. Sent for supraclavicular ultrasound, negative for adenopathy. 9. Removal of left tissue automotive lube technician mid November 2015 with antibiotics for Staph [...] with bilateral oophorectomy from Dr. Hayes in [place] in April 2017. I requested original pathology and it revealed high-grade cervical dysplasia but no invasive current cervical cancer or endometrial malignancy. 12. DEXA scan performed 07/06/2017 reveals stable mild osteopenia with T score - 1.5 lumbar spine, T score -1.2 left femoral neck, T score -1.8 right femoral neck. She saw Dr. Natarajan of endocrinology who adjusted her thyroid medication [...] does not take calcium due to Dr. Natarajan recommending notto take additional Caltrate from increased calcium. She has follow-up with him on 09/09/2019 and we will also review her thyroid studies which show a low TSH 0.25 and elevated free T4 1.31 (I presume he will recommend decreasing her levothyroxine back to 100 mcg daily). I will defer management of her osteopeniato Dr. Natarajan. 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 First at [...] Thyroid medication has been adjusted by Dr. Natarajan and he recommended holding her calcium for the next 3 months due to relative hypercalcemia on Arimidex. DEXA scan previously showed mild osteopenia. ALLERGIES: Intolerance of pegfilgrastim from Neulasta causing rash. SOCIAL HISTORY: She returned to work after her breast reconstruction at [facility] (since 2014), recently was off work due to COVID-19 pandemic but returned to work yesterday. She previously had smoked a pack of cigarettes per day for 30 years and stopped smoking in mid June 2016 with mild weight gain. She does not drink alcohol or use recreational drugs and is enrolled on [place] Medicaid. She is unaccompanied today. - Summary [...] immediate reconstruction on 06/17/2015. Removal of tissue automotive lube technician due to infection 07/20/2015. 5. Tamoxifen was changed to Arimidex 1 mg daily on 07/02/2015. Patient tolerating well. Will complete 5-7 years of hormonal therapy. 6. Second left tissue automotive lube technician removed due to infection 11/16/2015. 7. Left breast Latissimus dorsi reconstruction with implant 06/21/2016. 8. Cervical dysplasia requiring LEEP and underwent hysterectomy with bilateral oophorectomy April 2017, reviewed records from [facility]. 9. Adjuvant hormone therapy Tamoxifen 20 mg [...] With bilateral oophorectomy from Dr. Hayes in [place] 04/2017. Original pathology showed high-grade cervical dysplasia, no invasive current cervical cancer or endometrial malignancy. History of staph infection Removal of left tissue automotive lube technician 11/2015 with left breast latissimus dorsi reconstruction [...] Type: None Social History Comments: Works at [employer] since 2014. Former smoker 1ppd/30years.quit 06/2016. First [...] Copies to: NON STAFF MD Deb Goodman, CONNIE~ Bilateral Screening Full Field digital mammogram with [...] wound infection necessitating removal of her tissue automotive lube technician and implant placement has been delayed. Dr. De Los Santos of plastic surgery placed a second tissue automotive lube technician at the left mastectomy site, but this [...] day has been on hold by Dr. Natarajan due to prior changes in her thyroid function and will review her follow-up per DEXA scan at followup on 09/09/2019. I will defer recommendations for osteopenia management to Dr. Natarajan. --Today, the patient was notified that calcium was stabilized. Her next DEXA scan will be due 09/2021. (3) Hypothyroidism Qualifiers: Hypothyroidism type: acquired Qualified Code(s): E03.9 - Hypothyroidism, unspecified She remains on levothyroxine therapy 125 mcg po daily that is managed by Dr. Natarajan. Currently TSH is low with high FT4. I would recommend titrating down levothyroxine dose, but she will discuss these recommendations with Dr. Natarajan at f/u next week. (4) Encounter for [...] for coordination of care (as documented) and aeoq-mt-rfdh counseling of patient and/or family. Dictated By: Rosie Givens MD DD/ [id number] Signed By: <Electronically signed by MD Rosie Givens> 09/05/19 [address] [facility] Work Phone: 1([phone]) [phone] Progress note Author Deb Dara [facility] January 15, 2019 1:17pm Note Date/Time January 15, 2019 1 2:23pm [facility] [place] [address] Hem/Onc Follow Up Note - OP Signed Patient: Gabriella Rodriguez MR#: [id number] : 1960 Acct:[id number] Age/Sex: 58 / F Type: REG RCR [...] immediate reconstruction on 06/17/2015. Removal of tissue automotive lube technician due to infection 07/20/2015. 5. Tamoxifen was changed to Arimidex 1 mg daily on 07/02/2015. Patient tolerating well. Will complete 5-7 years of hormonal therapy. 6. Second left tissue automotive lube technician removed due to infection 11/16/2015. 7. Left breast Latissimus dorsi reconstruction with implant 06/21/2016. 8. Cervical dysplasia requiring LEEP and underwent hysterectomy with bilateral oophorectomy April 2017, reviewed records from [facility]. 9. Adjuvant hormone therapy Tamoxifen 20 mg [...] With bilateral oophorectomy from Dr. Hayes in [place] 04/2017. Original pathology showed high-grade cervical dysplasia, no invasive current cervical cancer or endometrial malignancy. History of staph infection Removal of left tissue automotive lube technician 11/2015 with left breast latissimus dorsi reconstruction [...] Type: None Social History Comments: Works at [employer] since 2014. Former smoker 1ppd/30years.quit 06/2016. First [...] wound infection necessitating removal of her tissue automotive lube technician and implant placement has been delayed. Dr. De Los Santos of plastic surgery placed a second tissue automotive lube technician at the left mastectomy site, but this [...] per day is on hold by Dr. Natarajan due to recent changes in her thyroid function and will follow-up per DEXA scan in 1 years. If she has ongoing decline in bone density, we may add bisphosphonate or rank ligand inhibitor therapy. --Today, the patient expressed that her calcium was stabilized but, is not taking any supplemental calcium at this time. Dr. Givens deferred management of her osteopenia to Dr. Natarajan. She will follow-up annually with Dr. Manuel [...] po daily that is managed by Dr. Natarajan. - Chemo Plan Goal of Treatment: Curative - Time with Patient Total Time Spent with Patient: 30 min Coordination of Care & Counseling Time: Greater than 50% of time spent with patient was for coordination of care (as documented) and pmlg-fw-gmsu counseling of patient and/or family. Dictated By: Deb Diamond APRN DD/ 1223 Signed By: <Electronically signed by CONNIE Diamond> 01/15/19 [address] [facility] Work Phone: 1(408) [phone] Progress note Author Viv Connors [facility] July 12, 2018 3:31pm Note Date/Time July 12, 2018 11: 02am [facility] [address] [address] Rad Onc Follow Up Note - OP Signed Patient: Gabriella Rodriguez MR#: [id number] : 1960 Acct:[id number] Age/Sex: 58 / F Type: REG RCR [...] follow-up on a regular basis with Dr. Chapin and Dr. Givens and at this point, [...] signed by Viv Connors MD> 07/12/18 [address] [facility] Work Phone: 1(631) 328-923304-11-2019 Progress note Author Rosie Givens [facility] July 12, 2018 2:21pm Note Date/Time July 12, 2018 9:4 8am [facility] [address] [address] Hem/Onc Follow Up Note - OP Signed Patient: Gabriella Rodriguez MR#: [id number] : 1960 Acct:[id number] Age/Sex: 58 / F Type: REG RCR Copies to: NON STAFF Kiesha Natarajan MD~ Subjective Date/Time of Service: Date of [...] masses or abnormalities of theright breast. Dr. Chapin saw patient and recommended biopsy. This biopsy [...] necrosis. 6. This case was discussed in [facility] cancer conference and the decision was made to perform left mastectomy with immediate reconstruction by Dr. Marcos Chapin and Dr. Trevor De Los Santos on 06/16/2015. She required 2 courses of postoperative antibiotics due to infection. 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 She returned to work after short-term disability on July 14, then laid off due to staffing issues. She initiated anastrozole in June 2015 which she has tolerated well. 7. The patient underwent a second breast reconstruction of the left breast withplacement of tissue automotive lube technician on 11/03/2015. 8. Noted on exam 11/05/2015 to have right supraclavicular fullness of unclear etiology. Sent for supraclavicular ultrasound, negative for adenopathy. 9. Removal of left tissue automotive lube technician mid November 2015 with antibiotics for Staph [...] with bilateral oophorectomy from Dr. Hayes in [place] in April 2017. I requested original pathology and it revealed high-grade cervical dysplasia but no invasive current cervical cancer or endometrial malignancy. 12. DEXA scan performed 07/06/2017 reveals stable mild osteopenia with T score - 1.5 lumbar spine, T score -1.2 left femoral neck, T score -1.8 right femoral neck. She saw Dr. Natarajan of endocrinology who adjusted her thyroid medication andstopped her calcium as she noted she was in a calcium overload state . He is reevaluating her in March 2018 for possible addition of vitamin D. I am recommending that he follows her stable osteopenia. 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 First at [...] Thyroid medication has been adjusted by Dr. Natarajan and he recommended holding her calcium for the next 3 months due to relative hypercalcemia on Arimidex. DEXA scan shows mild osteopenia. ALLERGIES: Intolerance of pegfilgrastim from Neulasta causing rash. 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 She is now back to work after her breast reconstruction at [facility] (since 2014). She previously had smoked a pack of cigarettes per day for 30 years and stopped smoking in mid June 2016 with mild weight gain. She does not drink alcohol or use recreational drugs and is enrolled on [place] Medicaid. She is unaccompanied today. HPI: Gabriella is here for six-month follow-up. Stable weight after hysterectomy in April 2017--she put on about 15 pounds and wondered if this could be related to her anastrozole. She returned to Dr. Natarajan who adjusted her thyroid medicine and now [...] total abdominal hysterectomy by Dr. Hayes in [place] April 2017 and had high-grade dysplasia but [...] immediate reconstruction on 06/17/2015. Removal of tissue automotive lube technician due to infection 07/20/2015. 5. Tamoxifen was changed to Arimidex 1 mg daily on 07/02/2015. Patient tolerating well. Will complete 5-7 years of hormonal therapy. 6. Second left tissue automotive lube technician removed due to infection 11/16/2015. 7. Left breast Latissimus dorsi reconstruction with implant 06/21/2016. 8. Cervical dysplasia requiring LEEP and underwent hysterectomy with bilateral oophorectomy April 2017, reviewed records from [facility]. Subjective/ROS - Narrative: Constitutional: No Chills, No [...] for review. Thyroid function followed by Dr. Natarajan. - Impressions ITS Impressions Mammogram Diagnostic 07/09/18 [...] Wagner Espinoza M.D.07/09/2018 9:23 AM Dictation Location: [facility] Any impression(s) listed above is documentation that [...] wound infection necessitating removal of her tissue automotive lube technician and implant placement has been delayed. Dr. De Los Santos of plastic surgery placed a second tissue automotive lube technician at the left mastectomy site, but this [...] per day is on hold by Dr. Natarajan due to recent changes in her thyroid function and will follow-up per DEXA scan in 1 years. If she has ongoing decline in bone density, we may add bisphosphonate or rank ligand inhibitor therapy. --I will defer management of her osteopenia to Dr. Natarajan. (3) Hypothyroidism Qualifiers: Hypothyroidism type: acquired Qualified Code(s): E03.9 - Hypothyroidism, unspecified She remains on levothyroxine therapy that is managed by Dr. Natarajan. - Chemo Plan Chemo Plan (Dose, Rate, Freq): Anastrozole 1 mg daily to complete 5-7-year course. Goal of Treatment: Curative - Time with Patient Total Time Spent with Patient: 30 min Coordination of Care & Counseling Time: Greater than 50% of time spent with patient was for coordination of care (as documented) and [id number] counseling of patient and/or family. Dictated By: Rosie Givens MD DD/ [id number] Signed By: <Electronically signed by MD Rosie Givens> 07/12/[address] [place] [address] Work Phone: 1([phone]) 694-934710-11-2018 Progress note Author Rosie Givens [facility] January 11, 2018 10:11am Note Date/Time January 11, 2018 9 :45am [facility] [place] [address] Hem/Onc Follow Up Note - OP Signed Patient: Gabriella Rodriguez MR#: [id number] : 1960 Acct:[id number] Age/Sex: 57 / F Type: REG RCR [...] lymph nodes were negative for metastatic cancer. [place] histologic score was 8, which is high [...] masses or abnormalities of theright breast. Dr. Chapin saw patient and recommended biopsy. This biopsy [...] necrosis. 6. This case was discussed in [facility] cancer conference and the decision was made to perform left mastectomy with immediate reconstruction by Dr. Marcos Chapin and Dr. Trevor De Los Santos on 06/16/2015. She required 2 courses of postoperative antibiotics due to infection. 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 She returned to work after short-term disability on July 14, then laid off due to staffing issues. She initiated anastrozole in June 2015 which she has tolerated well. 7. The patient underwent a second breast reconstruction of the left breast withplacement of tissue automotive lube technician on 11/03/2015. 8. Noted on exam 11/05/2015 to have right supraclavicular fullness of unclear etiology. Sent for supraclavicular ultrasound, negative for adenopathy. 9. Removal of left tissue automotive lube technician mid November 2015 with antibiotics for Staph [...] with bilateral oophorectomy from Dr. Hayes in [place] in April 2017. I requested original pathology and it revealed high-grade cervical dysplasia but no invasive current cervical cancer or endometrial malignancy. 12. DEXA scan performed 07/06/2017 reveals stable mild osteopenia with T score - 1.5 lumbar spine, T score -1.2 left femoral neck, T score -1.8 right femoral neck. She saw Dr. Natarajan of endocrinology who adjusted her thyroid medication and stopped her calcium as she noted she was in a calcium overload state . He is reevaluating her in March 2018 for possible addition of vitamin D. I am recommending that he follows her stable osteopenia. 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 First at [...] Thyroid medication has been adjusted by Dr. Natarajan and he recommended holding her calcium for the next 3 months due to relative hypercalcemia on Arimidex. DEXA scan shows mild osteopenia. ALLERGIES: Intolerance of pegfilgrastim from Neulasta causing rash. 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 She is now back to work after her breast reconstruction at [facility] (since 2014). She previously had smoked a pack of cigarettes per day for 30 years and stopped smoking in mid June 2016 with mild weight gain. She does not drink alcohol or use recreational drugs and is enrolled on [place] Medicaid. She is unaccompanied today. HPI: Gabriella is here for six-month follow-up. She noticed that after hysterectomy in April 2017 she put on about 15 pounds and wondered if this could be related toher anastrozole. She returned to Dr. Natarajan who adjusted her thyroid medicine and now [...] total abdominal hysterectomy by Dr. Hayes in [place] April 2017 and had high-grade dysplasia but [...] immediate reconstruction on 06/17/2015. Removal of tissue automotive lube technician due to infection 07/20/2015. 5. Tamoxifen was changed to Arimidex 1 mg daily on 07/02/2015. Patient tolerating well. 6. Second left tissue automotive lube technician removed due to infection 11/16/2015. 7. Left breast Latissimus dorsi reconstruction with implant 06/21/2016. 8. Cervical dysplasia requiring LEEP and underwent hysterectomy with bilateral oophorectomy April 2017, reviewed records from [facility]. Subjective/ROS - Narrative: Constitutional: No Chills, No [...] Date / Time pegfilgrastim Allergy Hives Verified 10/19/17 09:09 Home Medications Medication Instructions Recorded Confirmed [...] wound infection necessitating removal of her tissue automotive lube technician and implant placement has been delayed. Dr. De Los Santos of plastic surgery placed a second tissue automotive lube technician at the left mastectomy site, but this [...] for coordination of care (as documented) and [id number] counseling of patient and/or family. less than 15 minutes Dictated By: Rosie Givens MD DD/ [id number] Signed By: <Electronically signed by Rosie Givens MD> 01/11/[address] [place] [address] Work Phone: 1(285) 189-733204-12-2018 Progress note Author Leonel Smith [facility] July 13, 2017 1:00pm Note Date/Time July 13, 2017 9:3 9am [facility] [place] [address] Rad Onc Follow Up Note - OP Signed Patient: Gabriella Rodriguez MR#: [id number] : 1960 Acct:[id number] Age/Sex: 57 / F Type: REG RCR Copies to: NON STAFF Kiesha Natarajan MD~ Subjective - Service Date/Time Date: 07/13/17 [...] range of motion. No cyanosis/clubbing/edema. 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 She will revisit this with Dr. Natarajan in endocrinology, and suggest taking it no more than 2-3 times a week, if not every day. I recommended she do mild-moderate weight bearing exercises to help with bone strength, and to consider hiring a regional sales trainer for one session to teach her [...] signed by Leonel Cardenas MD> 07/13/17 [address] [facility] Work Phone: [phone] 296-481804-12-2018 Progress note Author Rosie Givens [facility] July 13, 2017 9:50am Note Date/Time July 13, 2017 9:2 5am [facility] [place] [address] Hem/Onc Follow Up Note - OP Signed Patient: Gabriella Rodriguez MR#: [id number] : 1960 Acct:[id number] Age/Sex: 57 / F Type: REG RCR [...] masses or abnormalities of theright breast. Dr. Chapin saw patient and recommended biopsy. This biopsy [...] necrosis. 6. This case was discussed in [facility] cancer conference and the decision was made to perform left mastectomy with immediate reconstruction by Dr. Marcos Chapin and Dr. Trevor De Los Santos on 06/16/2015. She required 2 courses of postoperative antibiotics due to infection. 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 She returned to work after short-term disability on July 14, then laid off due to staffing issues. She initiated anastrozole in June 2015 which she has tolerated well. 7. The patient underwent a second breast reconstruction of the left breast withplacement of tissue automotive lube technician on 11/03/2015. 8. Noted on exam 11/05/2015 to have right supraclavicular fullness of unclear etiology. Sent for supraclavicular ultrasound, negative for adenopathy. 9. Removal of left tissue automotive lube technician mid November 2015 with antibiotics for Staph [...] with bilateral oophorectomy from Dr. Hayes in [place] with no abnormalities. 12. DEXA scan performed 07/06/2017 reveals stable mild osteopenia with T score - 1.5 lumbar spine, T score -1.2 left femoral neck, T score -1.8 right femoral neck. 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 First at [...] Thyroid medication has been adjusted by Dr. Natarajan and he recommended holding her calcium for the next 3 months due to relative hypercalcemia on Arimidex. DEXA scan shows mild osteopenia. ALLERGIES: Intolerance of pegfilgrastim from Neulasta causing rash. 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 She is now back to work after her breast reconstruction at [facility] (since 2014). She previously had smoked a pack of cigarettes per day for 30 years and stopped smoking in mid June 2016 with mild weight gain. She does not drink alcohol or use recreational drugs and is enrolled on [place] Medicaid. She is unaccompanied today. HPI: Gabriella [...] total abdominal hysterectomy by Dr. Hayes in [place] April 2017 and was reported to have [...] immediate reconstruction on 06/17/2015. Removal of tissue automotive lube technician due to infection 07/20/2015. 5. Tamoxifen was changed to Arimidex 1 mg daily on 07/02/2015. Patient tolerating well. 6. Second left tissue automotive lube technician removed due to infection 11/16/2015. 7. Left breast Latissimus dorsi reconstruction with implant 06/21/2016. 8. Cervical dysplasia requiring LEEP and underwent hysterectomy with bilateral oophorectomy April 2017, requesting records from [facility] for pathology review.. Subjective/ROS - Narrative: Constitutional: [...] thyroid studies and electrolytes followed by Dr. Natarajan. - Other Results Results/Comments: CLINICAL DATA: History [...] for the next mammogram. Transcribed By: REGINE 07/06/17 0807 Dictated By: Chapis Marti MD 07/06/17 0801 [...] wound infection necessitating removal of her tissue automotive lube technician and implant placement has been delayed. Dr. De Los Santos of plastic surgery placed a second tissue automotive lube technician at the left mastectomy site, but this [...] per day is on hold by Dr. Natarajan due to recent changes in her thyroid [...] requesting outside records from Dr. Hayes at [facility] for recent hysterectomy and to review pathology. [...] for coordination of care (as documented) and zody-dw-elpe counseling of patient and/or family. 25 - 35 minutes Dictated By: Rosie Givens MD DD/ 2 Signed By: <Electronically signed by Rosie Givens MD> 07/13/17 [address] [facility] Work Phone: [phone] Progress note Author Rosie Givens [facility] January 19, 2017 12:55pm Note Date/Time January 19, 2017 9 :25am [facility] [place] [address] Hem/Onc Follow Up Note - OP Signed Patient: Gabriella Rodriguez MR#: [id number] : 1960 Acct:[id number] Age/Sex: 56 / F Type: REG RCR Copies to: NON STAFF Jurgen Chapin DO Trevor De Los Santos MD~ Subjective Date/Time of Service: Date of [...] lymph nodes were negative for metastatic cancer. [place] histologic score was 8, which is high [...] masses or abnormalities of theright breast. Dr. Chapin saw patient and recommended biopsy. This biopsy [...] necrosis. 6. This case was discussed in [facility] cancer conference and the decision was made to perform left mastectomy with immediate reconstruction by Dr. Marcos Chapin and Dr. Trevor De Los Santos on 06/16/2015. She required 2 courses of postoperative antibiotics due to infection. 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 She returned to work after short-term disability on July 14, then laid off due to staffing issues. She initiated anastrozole in June 2015 which she has tolerated well. 7. The patient underwent a second breast reconstruction of the left breast withplacement of tissue automotive lube technician on 11/03/2015. 8. Noted on exam 11/05/2015 to have right supraclavicular fullness of unclear etiology. Sent for supraclavicular ultrasound, negative for adenopathy. 9. Removal of left tissue automotive lube technician mid November 2015 with antibiotics for Staph infection. 10. 06/21/2016 the patient underwent left breast reconstruction with latissimus dorsi flap. Immediate insertion of implant, excision of scar or left chest. The procedure was tolerated well. She has planned fat transfer procedures and nipple reconstruction but has not had any complications since most recent procedure in October 2016. 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 She is now back to work after her breast reconstruction at [facility] (since 2014). She previously had smoked a pack of cigarettes per day for 30 years and stopped smoking in mid June 2016 with mild weight gain. She does not drink alcohol or use recreational drugs and is enrolled on [place] Medicaid. She is unaccompanied today. HPI: Gabriella [...] total abdominal hysterectomy by Dr. Hayes in [place] next month. She has resolution of prior [...] immediate reconstruction on 06/17/2015. Removal of tissue automotive lube technician due to infection 07/20/2015. 5. Tamoxifen was changed to Arimidex 1 mg daily on 07/02/2015. Patient tolerating well. 6. Second left tissue automotive lube technician removed due to infection 11/16/2015. 7. Left [...] Breast: No Changes (placement of left tissue automotive lube technician healing well without new complaints), No Lump(s), [...] wound infection necessitating removal of her tissue automotive lube technician and implant placement has been delayed. Dr. De Los Santos of plastic surgery placed a second tissue automotive lube technician at the left mastectomy site, but this [...] for coordination of care (as documented) and [id number] counseling of patient and/or family. 25 - 35 minutes Dictated By: Rosie Givens MD DD/ [id number] Signed By: <Electronically signed by MD Rosie Givens> 01/19/17 [address] [facility] Work Phone: Evaluation noteNo assessment information available [facility] Work Phone: Evaluation note* Diagnosis Onset Date Resolution Status Breast cancer of upper-outer quadrant of left female breast chronic Encounter for monitoring aromatase inhibitor therapy chronic Hypothyroidism chronic Osteopenia chronic Status post hysterectomy with oophorectomy chronic [facility] Work Phone: Summary Purpose Family History No Family History Records Found Relationship Condition Age at Onset Recorded Date/T truong Not Specified Diabetes mellitus Unknown natural son Diabetes mellitus Unknown father Chronic obstructive pulmonary disease Unk nown Relationship Condition Age at Onset Recorded Date/T truong mother Diabetes mellitus Unknown son Diabetes mellitus Unknown father Chronic obstructive pulmonary disease Unk nown father Heart disease Unknown family member Unknown sister Unknown Advance Directives No Advanced Directives Records Found Advance Directive Response Recorded Date/ Time Advance Directives No January 16, 2017 12:54pm Chief Complaint and Reason for Visit Chief Complaint BREAST CANCER Reason for Visit Breast cancer of upp er-outer quadrant of left female breast Encounter for monitoring aromatase inhibitor therapy Hypothyroidism Osteopenia Status post hysterectomy with oophorectomy Chief Complaint Z48.817 z85.3 Chief Complaint z85.3 Chief Complaint Z12.31 Additional Source Comments INFORMATION SOURCE (unrecogn ized section and content) DATE CREATED AUTHOR 08/02/2018 [facility] DATE CREATED AUTHOR AUTHOR'S ORGANIZ ATION 01/10/2021 [facility] DATE CREATED AUTHOR AUTHOR'S ORGANIZ ATION [facility]14[facility]2022 [facility] DATE CREATED AUTHOR AUTHOR'S ORGANIZ ATION 11/05/2023 [facility] DATE CREATED AUTHOR AUTHOR'S ORGANIZ ATION 11/15/2023 [facility] Goals (unrecognized section and content) Goals may [...] Status: Active Member Role Status Dates Deb Chiu Primary Care Provider Active Team Status: Inactive Member Role Status Dates Deb Light Laurashannongustavo Primary Care Provider Active JOSEP Qureshi Attending Provider Active Team Status: Inactive Member Role Status Dates Deb Light Aram Primary Care Provider Active Jurgen Chapin DO Attending Provider Active Kiesha Natarajan MD Other Provider Active Team Status: Inactive Member Role Status Dates Deb Light Laurashannongustavo Primary Care Provider Active Sta rt: November 13, 2023 End: November 13, 2023 Jurgen Chapin DO Attending Provider Active Start: November 13, 2023 End: November 13, 2023 REASON FOR VISIT (unrecogniz ed section and [...] BE BASED ON THE PRIMARY CLINICAL RECORDS. [facility] [email or web address] [facility]. provides no warranty or guarantee of the accuracy or completeness of information in this document.
[2023-11-16 15:39] LABS: Bacteria Urine TRACE #/HPF (NONE SEEN); Crystals Seen? None Seen #/HPF (None Seen); Mucus Urine NONE SEEN (NONE SEEN); RBC Urine 0-2 #/HPF (0-2); Squamous Epithelial Cell Urine RARE #/LPF (NONE/RARE)
[2023-11-16 15:40] LABS: Cast Seen? NONE SEEN #/LPF (NONE SEEN)
[2023-11-16 16:06] LABS: Alanine Aminotransferase 28 U/L (14-59); Albumin Globulin Ratio 1.3; Alkaline Phosphatase 51 U/L (46-116); Anion Gap 12.8; Aspartate Amino Transferase 25 U/L (15-37); BUN Creatinine Ratio 23.5; Bilirubin Total 0.6 mg/dL (0.2-1.0); Carbon Dioxide 27.6 mmol/L (21.0-32.0); Chloride 100 mmol/L (98-107); Chol HDL Ratio 2.7; Cholesterol 238 mg/dL (<=200); Estimated GFR (African America >60 (>=60); Estimated GFR (Non-African Ame >60 (>=60); Globulin 3.2 g/dL; Glucose 80 mg/dL (74-106); HDL Cholesterol 88 mg/dL (40-60); Potassium 4.4 mmol/L (3.5-5.1); Sodium 136 mmol/L (136-145); Total Protein 7.2 g/dL (6.4-8.2); Triglycerides 38 mg/dL (<=150); VLDL CHOLESTEROL 7.6 mg/dL
== END 2023-11-16 15:14 | disposition home or self-care (01) ==
LOC: LAB 15:14
PROVIDERS: PCP Nurse Practitioner; Visit Provider Nurse Practitioner
DX: Z00.00 Encounter for general adult medical examination without abnormal findings (principal)
CPT/HCPCS: 36415; 80053; 80061; 81001; 85025

== ENCOUNTER 2024-04-06 10:19 | Outpatient (OUT) | payer BC, SELFPAY ==
[2024-04-06 11:48] LABS: Albumin Level 3.8 g/dL (3.4-5.0); Anion Gap 11.6; BUN Creatinine Ratio 24.6; Carbon Dioxide 30.5 mmol/L (21.0-32.0); Chloride 105 mmol/L (98-107); Estimated GFR (African America >60 (>=60 mL/min/1.73m^2); Estimated GFR (Non-African Ame >60 (>=60 mL/min/1.73m^2); Free T3 2.58 pg/mL (2.18-3.98); Glucose 96 mg/dL (74-106); Phosphorus 3.7 mg/dL (2.6-4.7); Potassium 5.1 mmol/L (3.5-5.1); Sodium 142 mmol/L (136-145); Thyroid Stimulating Hormone 3.609 uIU/mL (0.358-3.740)
[2024-04-06 11:58] LABS: Free T4 1.05 ng/dL (0.76-1.46)
== END 2024-04-06 10:20 | disposition home or self-care (01) ==
LOC: LAB 10:20
PROVIDERS: PCP Nurse Practitioner; Visit Provider Internal Medicine
DX: E06.3 Autoimmune thyroiditis (principal); E83.52 Hypercalcemia; E03.9 Hypothyroidism, unspecified
CPT/HCPCS: 36415; 80069; 82306; 82310; 83970; 84439; 84443; 84481